=== PATIENT | female | born 1940 | race Caucasian/White ===

== ENCOUNTER 2019-07-30 08:22 | Outpatient (CLI) | payer MEDICARE, SELFPAY ==
[2019-07-30 08:37] LABS: Hematocrit 34.8 % (35.0-42.0); Hemoglobin 11.7 g/dL (11.7-13.8); Mean Corpuscular HGB Conc 33.6 g/dL (32.0-36.0); Mean Corpuscular Hemoglobin 30.3 pg (27.0-31.0); Mean Corpuscular Volume 90.2 fL (78.0-102.0); Mean Platelet Volume 9.4 fl (9.2-11.8); Platelet Count Result 159 K/mm3 (150-420); Red Blood Count 3.86 M/mm3 (4.20-5.40); Red Cell Distribution Width 13.2 % (11.6-14.4); White Blood Count 5.8 K/mm3 (4.8-10.8)
[2019-07-30 08:48] LABS: Hemoglobin A1C 6.3 % (<5.7)
[2019-07-30 10:02] LABS: Alanine Aminotransferase 25 U/L (14-59); Albumin Level 3.6 g/dL (3.4-5.0); Alkaline Phosphatase 59 U/L (46-116); Anion Gap 12.5 mmol/L (7-16); Aspartate Amino Transferase 22 U/L (15-37); Bilirubin,Total 0.9 mg/dL (0.00-1.00); Blood Urea Nitrogen 14 mg/dL (7-18); Calcium 8.9 mg/dL (8.5-10.1); Carbon Dioxide 27 mmol/L (21-32); Chloride 103 mmol/L (98-108); Cholesterol 156 mg/dL (0-200); Estimated Glomerular Filt Rate 53; Glucose 98 mg/dL (70-99); HDL Direct 49 mg/dL (40-60); LDL Cholesterol Calculated 75 mg/dL (<130); Osmolality Calculated 286 mOsm/kg (285-295); Potassium 4.5 mmol/L (3.5-5.1); Sodium 138 mmol/L (136-145); Thyroid Stimulating Hormone Reflex 2.74 u/IU/mL (0.36-3.74); Total Protein 6.6 g/dL (6.4-8.2); Triglycerides 161 mg/dL (0-150)
[2019-08-02 09:38] LABS: Vitamin D 25 Hydroxy 41 ng/mL (30-100)
== END 2019-07-30 08:23 | disposition home or self-care (01) ==
LOC: CHSLAB 08:25
PROVIDERS: PCP Family Medicine; Visit Provider Family Medicine
DX: E78.5 Hyperlipidemia, unspecified (principal); I10 Essential (primary) hypertension; E03.9 Hypothyroidism, unspecified; E11.9 Type 2 diabetes mellitus without complications; R53.83 Other fatigue; E55.9 Vitamin D deficiency, unspecified
CPT/HCPCS: 36415; 80053; 80061; 82306; 83036; 84443; 85027

== ENCOUNTER 2020-01-20 08:07 | Outpatient (CLI) | payer MEDICARE, SELFPAY ==
[2020-01-20 09:20] LABS: Hemoglobin A1C 5.9 % (<5.7)
[2020-01-20 09:27] LABS: Creatinine Urine 72.96 mg/dL (40-278); MALB Creatinine Ratio 17.9 mg/g (0-30); Microalbumin Urine Random 13.1 mg/L
[2020-01-20 09:49] LABS: Erythrocyte Sedimentation Rate 22 mm/hr (0-20)
[2020-01-20 09:58] LABS: Alanine Aminotransferase 21 U/L (14-59); Albumin Level 3.5 g/dL (3.4-5.0); Alkaline Phosphatase 69 U/L (46-116); Anion Gap 12 mmol/L (8-16); Aspartate Amino Transferase 13 U/L (15-37); Bilirubin,Total 0.9 mg/dL (0.00-1.00); Blood Urea Nitrogen 26 mg/dL (7-18); Calcium 9.3 mg/dL (8.5-10.1); Carbon Dioxide 25 mmol/L (21-32); Chloride 103 mmol/L (98-108); Cholesterol 185 mg/dL (0-200); Creatine Kinase 49 U/L (26-192); Estimated Glomerular Filt Rate 55; Glucose 94 mg/dL (70-99); HDL Direct 65 mg/dL (40-60); LDL Cholesterol Calculated 96 mg/dL (<130); Osmolality Calculated 294 mOsm/kg (285-295); Potassium 4.3 mmol/L (3.5-5.1); Sodium 140 mmol/L (136-145); Triglycerides 118 mg/dL (0-150); Vitamin B12 1029 pg/mL (193-986)
[2020-01-20 10:08] LABS: Thyroid Stimulating Hormone Reflex 2.19 u/IU/mL (0.36-3.74)
== END 2020-01-20 08:08 | disposition home or self-care (01) ==
LOC: CHSLAB 08:09
PROVIDERS: PCP Family Medicine; Visit Provider Family Medicine
DX: E78.2 Mixed hyperlipidemia (principal); E03.9 Hypothyroidism, unspecified; M79.10 Myalgia, unspecified site; E53.8 Deficiency of other specified B group vitamins; E11.9 Type 2 diabetes mellitus without complications
CPT/HCPCS: 36415; 80053; 80061; 82043; 82550; 82607; 83036; 84443; 85652

== ENCOUNTER 2020-04-21 11:54 | Outpatient (CLI) | payer MEDICARE, SELFPAY ==
--- NOTE | ~2020-04-21 | MM_ITS ---
EXAMINATION: MM screening [facility] w [facility] HISTORY: Screening mammogram TECHNIQUE: Craniocaudal and mediolateral oblique 3-D tomosynthesis images were obtained and synthetic 2-D images were generated. CAD analysis was submitted and interpreted. COMPARISON: 01/18/2018, 10/03/2013, 10/12/2011 bilateral digital screening mammogram examinations BREAST PARENCHYMAL COMPOSITION: There are scattered areas of fibroglandular density. FINDINGS: There are occasional benign calcifications. There is no evidence of suspicious mass, calcif ication, or architectural distortion to suggest malignancy in either breast. There has been no suspic ious interval change. IMPRESSION: 1. No mammographic evidence of malignancy. 2. Recommend routine screening mammography in one year. BI-RADS Category 2: Benign finding(s). Reviewed, dictated and finalized at location B. RESS SPECIALIST
== END 2020-04-21 11:55 | disposition home or self-care (01) ==
LOC: CHSIMG 11:55
PROVIDERS: PCP Family Medicine; Visit Provider Family Medicine
DX: Z12.31 Encounter for screening mammogram for malignant neoplasm of breast (principal)
CPT/HCPCS: 77063; 77067

== ENCOUNTER 2020-06-30 07:14 | Outpatient (CLI) | payer MEDICARE, SELFPAY ==
[2020-06-30 07:30] LABS: Hematocrit 37.8 % (35.0-42.0); Hemoglobin 12.3 g/dL (11.7-13.8); Mean Corpuscular HGB Conc 32.5 g/dL (32.0-36.0); Mean Corpuscular Hemoglobin 29.5 pg (27.0-31.0); Mean Corpuscular Volume 90.6 fL (78.0-102.0); Mean Platelet Volume 8.4 fl (9.2-11.8); Platelet Count Result 244 K/mm3 (150-420); Red Blood Count 4.17 M/mm3 (4.20-5.40); Red Cell Distribution Width 13.4 % (11.6-14.4); White Blood Count 8.6 K/mm3 (4.8-10.8)
[2020-06-30 07:58] LABS: Hemoglobin A1C 5.9 % (<5.7)
[2020-06-30 08:47] LABS: Alanine Aminotransferase 20 U/L (14-59); Albumin Level 3.5 g/dL (3.4-5.0); Alkaline Phosphatase 68 U/L (46-116); Anion Gap 11 mmol/L (8-16); Aspartate Amino Transferase 11 U/L (15-37); Blood Urea Nitrogen 30 mg/dL (7-18); Carbon Dioxide 25 mmol/L (21-32); Chloride 100 mmol/L (98-108); Cholesterol 179 mg/dL (0-200); Estimated Glomerular Filt Rate 45; Glucose 109 mg/dL (70-99); HDL Direct 56 mg/dL (40-60); LDL Cholesterol Calculated 91 mg/dL (<130); Osmolality Calculated 289 mOsm/kg (285-295); Potassium 4.3 mmol/L (3.5-5.1); Sodium 136 mmol/L (136-145); Triglycerides 160 mg/dL (0-150); Vitamin B12 901 pg/mL (193-986)
[2020-06-30 09:17] LABS: Thyroid Stimulating Hormone Reflex 3.57 u/IU/mL (0.36-3.74)
[2020-07-02 11:58] LABS: Vitamin D 25 Hydroxy 46 ng/mL (30-100)
== END 2020-06-30 07:15 | disposition home or self-care (01) ==
LOC: CHSLAB 07:17
PROVIDERS: PCP Family Medicine; Visit Provider Family Medicine
DX: E78.2 Mixed hyperlipidemia (principal); E55.9 Vitamin D deficiency, unspecified; E03.9 Hypothyroidism, unspecified; I10 Essential (primary) hypertension; E11.9 Type 2 diabetes mellitus without complications; R53.83 Other fatigue; E53.8 Deficiency of other specified B group vitamins
CPT/HCPCS: 36415; 80053; 80061; 82306; 82607; 83036; 84443; 85027

== ENCOUNTER 2020-07-16 10:36 | Outpatient (CLI) | payer MEDICARE, SELFPAY ==
--- NOTE | ~2020-07-16 | XR_ITS ---
EXAMINATION: XR hand LT 2V DATE: 07/16/2020 10:56 INDICATION: Pain and swelling at the left hand. TECHNIQUE: Posteroanterior and lateral views of the left hand were obtained. COMPARISON: 06/22/2013 FINDINGS: Diffuse osteopenia. No fracture no traumatic malalignment. Chondrocalcinosis in the region of the tri angular fibrocartilage complex. Interval progression of severe polyarticular osteoarthritis at the fi rst carpometacarpal, the lunotriquetral and all of the interphalangeal joints with the exception of t he first interphalangeal and fifth proximal interphalangeal joint where it is of mild severity. There are associated central erosions consistent with erosive osteoarthritis at the base of the second mid dle phalanx and at the third-fifth distal phalanges. There is secondary mild varus angulation at the second and third proximal interphalangeal joints. Moderate osteoarthritis at the second and third met acarpophalangeal joints and mild osteoarthritis at the wrist, midcarpal, triscaphe, second carpal met acarpal and remaining metacarpophalangeal joints. Subtle dystrophic calcification versus calcific gilson ris in the soft tissues surrounding the head of the fourth metacarpal and the heads of the second, th ird and fourth proximal phalanges. Prominent soft tissue swelling over the dorsum of the hand. IMPRESSION: 1. 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 Reviewed, dictated and finalized at location A. IMPRESSION: 1. Progression of severe polyarticular osteoarthritis and erosive osteoarthriti s most prominent at the radial aspect of the carpus and at the interphalangeal joints.
== END 2020-07-16 10:37 | disposition home or self-care (01) ==
PROVIDERS: PCP Family Medicine; Visit Provider Physician Assistant
DX: M11.242 Other chondrocalcinosis, left hand (principal); M19.042 Primary osteoarthritis, left hand; M18.12 Unilateral primary osteoarthritis of first carpometacarpal joint, left hand
CPT/HCPCS: 73120

== ENCOUNTER 2020-10-06 07:49 | Outpatient (CLI) | payer MEDICARE, SELFPAY ==
[2020-10-06 08:20] LABS: Hemoglobin A1C 5.9 % (<5.7)
[2020-10-06 09:02] LABS: Anion Gap 9 mmol/L (8-16); Blood Urea Nitrogen 20 mg/dL (7-18); Calcium 9.2 mg/dL (8.5-10.1); Carbon Dioxide 27 mmol/L (21-32); Chloride 102 mmol/L (98-108); Estimated Glomerular Filt Rate 55; Glucose 102 mg/dL (70-99); Osmolality Calculated 288 mOsm/kg (285-295); Potassium 4.6 mmol/L (3.5-5.1); Sodium 138 mmol/L (136-145)
== END 2020-10-06 07:50 | disposition home or self-care (01) ==
LOC: CHSLAB 07:51
PROVIDERS: PCP Family Medicine; Visit Provider Family Medicine
DX: E11.9 Type 2 diabetes mellitus without complications (principal); N18.30 Chronic kidney disease, stage 3 unspecified
CPT/HCPCS: 36415; 80048; 83036

== ENCOUNTER 2020-12-28 10:28 | Outpatient (CLI) | payer MEDICARE, SELFPAY ==
[2020-12-28 11:07] LABS: Anion Gap 11 mmol/L (8-16); Blood Urea Nitrogen 22 mg/dL (7-18); Calcium 9.1 mg/dL (8.5-10.1); Carbon Dioxide 27 mmol/L (21-32); Chloride 103 mmol/L (98-108); Estimated Glomerular Filt Rate 48; Glucose 130 mg/dL (70-99); Osmolality Calculated 297 mOsm/kg (285-295); Potassium 4.3 mmol/L (3.5-5.1); Sodium 141 mmol/L (136-145)
== END 2020-12-28 10:29 | disposition home or self-care (01) ==
LOC: CHSLAB 10:31
PROVIDERS: PCP Family Medicine; Visit Provider Orthopaedic Surgery Hand Surgery
DX: G56.01 Carpal tunnel syndrome, right upper limb (principal)
CPT/HCPCS: 36415; 80048

== ENCOUNTER 2021-01-19 13:16 | Outpatient (CLI) | payer MEDICARE, SELFPAY ==
--- NOTE | ~2021-01-19 | XR_ITS ---
EXAMINATION: XR knee LT 3V DATE: 01/19/2021 13:55 INDICATION: Left knee pain. TECHNIQUE: 3 views of left knee including standing views were obtained. COMPARISON: Left knee radiographs 09/05/2012 FINDINGS: There is varus angulation at the knee. No fracture. There is severe osteoarthritis of media l compartment, moderate osteoarthritis of patellofemoral compartment, and mild osteoarthritis of late ral compartment. There is a small knee joint effusion. IMPRESSION: 1. Severe left knee osteoarthritis. 2. Small left knee joint effusion. Reviewed, dictated and finalized at location A.
== END 2021-01-19 13:17 | disposition home or self-care (01) ==
PROVIDERS: PCP Family Medicine; Visit Provider Orthopaedic Surgery
DX: M17.12 Unilateral primary osteoarthritis, left knee (principal)
CPT/HCPCS: 73562

== ENCOUNTER 2021-06-23 07:41 | Outpatient (CLI) | payer MEDICARE, SELFPAY ==
[2021-06-23 07:58] LABS: Hematocrit 38.2 % (35.0-42.0); Hemoglobin 12.3 g/dL (11.7-13.8); Mean Corpuscular HGB Conc 32.2 g/dL (32.0-36.0); Mean Corpuscular Hemoglobin 30.4 pg (27.0-31.0); Mean Corpuscular Volume 94.6 fL (78.0-102.0); Mean Platelet Volume 9.4 fl (9.2-11.8); Platelet Count Result 180 K/mm3 (150-420); Red Blood Count 4.04 M/mm3 (4.20-5.40); Red Cell Distribution Width 12.8 % (11.6-14.4); White Blood Count 6.2 K/mm3 (4.8-10.8)
[2021-06-23 08:14] LABS: Hemoglobin A1C 6.2 % (<5.7)
[2021-06-23 09:07] LABS: Alanine Aminotransferase 25 U/L (14-59); Albumin Level 3.6 g/dL (3.4-5.0); Alkaline Phosphatase 68 U/L (46-116); Anion Gap 12 mmol/L (8-16); Aspartate Amino Transferase 20 U/L (15-37); Bilirubin,Total 0.6 mg/dL (0.00-1.00); Blood Urea Nitrogen 23 mg/dL (7-18); Calcium 9.2 mg/dL (8.5-10.1); Carbon Dioxide 24 mmol/L (21-32); Chloride 103 mmol/L (98-108); Cholesterol 171 mg/dL (0-200); Estimated Glomerular Filt Rate 54; Free T4 Free Thyroxine Reflex 1.04 ng/dL (0.76-1.46); Glucose 108 mg/dL (70-99); HDL Direct 51 mg/dL (40-60); LDL Cholesterol Calculated 80 mg/dL (<130); Osmolality Calculated 292 mOsm/kg (285-295); Potassium 4.5 mmol/L (3.5-5.1); Sodium 139 mmol/L (136-145); Thyroid Stimulating Hormone Reflex 5.07 u/IU/mL (0.36-3.74); Total Protein 6.7 g/dL (6.4-8.2); Triglycerides 199 mg/dL (0-150)
== END 2021-06-23 07:42 | disposition home or self-care (01) ==
LOC: CHSLAB 07:44
PROVIDERS: PCP Family Medicine; Visit Provider Family Medicine
DX: R53.83 Other fatigue (principal); E78.2 Mixed hyperlipidemia; E11.9 Type 2 diabetes mellitus without complications; I12.9 Hypertensive chronic kidney disease with stage 1 through stage 4 chronic kidney disease, or unspecified chronic kidney disease; E03.9 Hypothyroidism, unspecified
CPT/HCPCS: 36415; 80053; 80061; 83036; 84439; 84443; 85027

== ENCOUNTER 2021-08-18 10:03 | Outpatient (RCR) | payer MEDICARE, SELFPAY ==
--- NOTE | 2021-08-18 10:54 | PTOPEVAL ---
Thank you for referring Shandra Myers to [facility].? The patient is scheduled to be seen for therapy? ____x/week for ___ weeks. Please review, sign, date and return this plan of care KESHIA. I agree with and certify that the following plan of care is medically necessary. Referring Physician Date Admitting Provider: Attending Provider: Gisselle Noel MD Referring Provider: *PT Outpatient Evaluation Start: 08/18/21 10:08 Freq: Status: Active Protocol: Document 08/18/21 10:10 [facility] (Rec: 08/18/21 10:54 [facility] [id number]) Therapy Assessment Status Assessment Status Assessment Status Evaluation Outpatient Past Medical History Neurological History Hx Neurological Disorders No Significant History Cardiovascular History Hx Atrial Fibrillation Yes Hx Hypercholesterolemia Yes Hx Hypertension Yes Respiratory History Hx Asthma Yes Hx Pneumonia Yes: severe in Feb 2019 Hx Sleep Apnea Yes: CPAP have had for one month Gastrointestinal History Hx Gastrointestinal Bleed Yes Genitourinary History Hx Genitourinary Disorders No Significant History Musculoskeletal History Hx Arthritis Yes: hands, knees Hx Back Pain Yes Hx Joint Replacement Yes: R TKR Hx Spinal Surgery Yes: low back surgery Hx Other Musculoskeletal Disorders Yes: see ortho dr for pain injections PRN-sh,knee,hip Hematological History Hx Hematological Disorders No Significant History Endocrine History Hx Hypothyroidism Yes HEENT History Hx Sinus Problems Yes: allergies, inner ear pressure Hx Other HEENT Disorders Yes: wear glasses Other History Hx Other Medical Conditions Yes: on antibiotic for R LE infection & cream Evaluation Information Problem Diagnosis cervical disc disease Onset 08/02/21 Additional Evaluation Detail NDI = 12% functionally declined Subjective Information patient reports she has been Query Text:As Reported By Patient/ having stiffness and pain in Family the neck a few weeks ago. she reports she woke up one day having a stiff neck on the L, and then the R came on a few days later and hung around longer. she reports she is feeling better this date after having been on mm relaxors and a heating pad. she reports
== END 2021-09-09 13:57 | disposition home or self-care (01) ==
LOC: CHSPT 10:03
PROVIDERS: PCP Family Medicine; Visit Provider Physician Assistant
DX: M50.90 Cervical disc disorder, unspecified, unspecified cervical region (principal); R29.898 Other symptoms and signs involving the musculoskeletal system
CPT/HCPCS: 97014; 97110; 97140; 97161; G0283

== ENCOUNTER 2021-10-27 08:00 | Outpatient (CLI) | payer MEDICARE, SELFPAY ==
[2021-10-27 08:29] LABS: Hematocrit 36.5 % (35.0-42.0); Hemoglobin 11.6 g/dL (11.7-13.8); Mean Corpuscular HGB Conc 31.8 g/dL (32.0-36.0); Mean Corpuscular Hemoglobin 28.8 pg (27.0-31.0); Mean Corpuscular Volume 90.6 fL (78.0-102.0); Mean Platelet Volume 8.3 fl (9.2-11.8); Platelet Count Result 234 K/mm3 (150-420); Red Blood Count 4.03 M/mm3 (4.20-5.40)
[2021-10-27 08:42] LABS: Hemoglobin A1C 6.2 % (<5.7)
[2021-10-27 09:11] LABS: Alanine Aminotransferase 25 U/L (14-59); Albumin Level 3.4 g/dL (3.4-5.0); Alkaline Phosphatase 78 U/L (46-116); Anion Gap 7 mmol/L (8-16); Aspartate Amino Transferase 13 U/L (15-37); Bilirubin,Total 0.8 mg/dL (0.00-1.00); Blood Urea Nitrogen 19 mg/dL (7-18); Carbon Dioxide 27 mmol/L (21-32); Chloride 102 mmol/L (98-108); Estimated Glomerular Filt Rate 51; Glucose 106 mg/dL (70-99); Osmolality Calculated 284 mOsm/kg (285-295); Potassium 4.3 mmol/L (3.5-5.1); Sodium 136 mmol/L (136-145); Total Protein 7.5 g/dL (6.4-8.2)
[2021-10-30 18:59] LABS: Vitamin D 25 Hydroxy 54 ng/mL (30-100)
== END 2021-10-27 08:01 | disposition home or self-care (01) ==
LOC: CHSLAB 08:02
PROVIDERS: PCP Family Medicine; Visit Provider Family Medicine
DX: E03.9 Hypothyroidism, unspecified (principal); I12.9 Hypertensive chronic kidney disease with stage 1 through stage 4 chronic kidney disease, or unspecified chronic kidney disease; N18.30 Chronic kidney disease, stage 3 unspecified; Z00.00 Encounter for general adult medical examination without abnormal findings; E11.9 Type 2 diabetes mellitus without complications; E55.9 Vitamin D deficiency, unspecified; R53.83 Other fatigue
CPT/HCPCS: 36415; 80053; 82306; 83036; 84443; 85027

== ENCOUNTER 2021-11-24 09:25 | Outpatient (CLI) | payer MEDICARE, SELFPAY ==
--- NOTE | ~2021-11-24 | MM_ITS ---
EXAMINATION: MM screening [facility] BI w [place] HISTORY: Screening mammogram TECHNIQUE: Craniocaudal and mediolateral oblique 3-D tomosynthesis images were obtained and synthetic 2-D images were generated. CAD analysis was submitted and interpreted. COMPARISON: 04/21/2020, 01/18/2018, 09/23/2013 BREAST PARENCHYMAL COMPOSITION: The breasts are almost entirely fatty. FINDINGS: There is no suspicious mass, calcification, or architectural distortion to suggest malignan cy in either breast. There has been no suspicious interval change. IMPRESSION: 1. No mammographic evidence of malignancy. 2. Recommend routine screening mammography while the patient remains in good health. BI-RADS Category 1: Negative Reviewed, dictated and finalized at location A. IMPRESSION: 1. No mammographic evidence of malignancy. 2. Recommend routine screening mammography while the patient remains in good he alth. BI-RADS Category 1: Negative
== END 2021-11-24 09:26 | disposition home or self-care (01) ==
LOC: CHSIMG 09:26
PROVIDERS: PCP Family Medicine; Visit Provider Family Medicine
DX: Z12.31 Encounter for screening mammogram for malignant neoplasm of breast (principal)
CPT/HCPCS: 77063; 77067

== ENCOUNTER 2021-11-26 10:41 | Outpatient (CLI) | payer MEDICARE, SELFPAY ==
--- NOTE | ~2021-11-26 | DEXA_ITS ---
Bone Density Report Name: TIEN BARRON Age: 81 Sex: Female Ethnicity: White Date of : 1940 Indication: hyperparathyroidism; height loss; prior fracture; asthma or emphysema; Referring Provider: Gisselle Noel Study: Bone densitometry was performed. Exam Date: November 26, 2021 Accession number: [id number] Bone Density: Region BMD T-score Z-score Classification Femoral Neck (Left) 0.662 -1.7 0.7 Osteopenia Total Hip (Left) 0.932 -0.1 2.1 Normal Femoral Neck (Right) 0.667 -1.6 0.7 Osteopenia Total Hip (Right) 0.852 -0.7 1.4 Normal Femoral Neck Mean 0.664 -1.7 0.7 Osteopenia Total Hip Mean 0.892 -0.4 1.7 Normal World Health Organization criteria for BMD impression classify patients as: Normal (T-score at or above -1.0), Osteopenia (T-score between -1.0 and -2.5), or Osteoporosis (T-score at or below -2.5). 10-year Fracture Risk: FRAX not reported because: Prior hip or vertebral fracture Clinical Information Provided by Patient: Have had a previous hip or vertebral fracture Has had a low trauma fracture Has used the following medications: Vitamin D, Calcium Has the following medical conditions: Asthma or Emphysema, Hyperparathyroidism Patient maximum height was 62 Menopause Age: 35 No regular weight bearing exercise Onset of menses at age 13 Number of children 2 Impression: The patient has low bone mass, based on the Left Femoral Neck T-score. The patient has risk factors, including: previous fracture. Discussion: INCREASED RISK OF FRACTURE DUE TO HISTORY OF FRACTURE. The patient's previous fracture puts the patient at high risk of a future fracture. In untreated patients, the risk of osteoporotic fracture increases approximately two-fold for each 1.0 SD decrease in T-score. Low bone density is not the only risk factor for fracture; also consider factors such as patient's age, frailty or poor health, risk of falling, risk of injury, previous osteoporotic fracture, family history of osteoporosis, cigarette smoking, low body weight, etc. Not everyone with a low trauma fracture has osteoporosis; osteomalacia and other metabolic bone disorders should also be considered. Patients who have osteoporosis should be evaluated for specific diseases and conditions (secondary causes) that may cause or contribute to bone loss and fracture risk. National Osteoporosis Foundation (NOF) recommends pharmacologic intervention for patients with a prior hip or vertebral fracture regardless of BMD T-score. The patient should follow a healthful lifestyle (good nutrition with adequate calcium and vitamin D, and appropriate weight-bearing exercise). Follow-Up: Consider a repeat BMD and Vertebral Fracture Assessment (VFA) exam in 2 years or sooner if medically necessary, to reassess this patient's status. R
== END 2021-11-26 10:42 | disposition home or self-care (01) ==
LOC: CHSIMG 10:42
PROVIDERS: PCP Family Medicine; Visit Provider Family Medicine
DX: Z78.0 Asymptomatic menopausal state (principal)
CPT/HCPCS: 77080

== ENCOUNTER 2022-01-23 10:27 | Outpatient (CLI) | payer MEDICARE, SELFPAY ==
--- NOTE | ~2022-01-23 | MR_ITS ---
EXAMINATION: MR lumbar spine wo con DATE: 01/23/2022 11:26 INDICATION: Low back pain. TECHNIQUE: Magnetic resonance imaging (MRI) of the lumbar spine was performed without intravenous con trast. Sequences included sagittal T2-weighted FSE, sagittal T2-weighted FS FSE, sagittal T1-weighted FSE, and axial T2-weighted FSE. COMPARISON: Lumbar spine MRI 02/20/2015 FINDINGS: There is 9 degrees levocurvature of lumbar spine. There is 3 mm retrolisthesis of L1 on L2 and L2 on L3, 3 mm anterolisthesis of L3 on L4, and 6 mm anterolisthesis of L4 on L5. There is mild c hronic height loss of T12 vertebral body with changes of vertebroplasty. There is a chronic left L5 p ars defect. There is severely decreased disc height from L1-L2 through L3-L4 with interbody fusion at L1-L2 and L3-L4. There is moderately decreased disc height at L4-L5 and L5-S1. The distal spinal cor d signal intensity is normal. The conus medullaris is at L1. The following disc levels are specifical ly discussed: L1-L2: There is moderate bilateral facet joint osteoarthritis. There is mild bilateral neural foramin al stenosis. There is mild central canal stenosis. L2-L3: The disc is bulging and has an annular fissure. There is severe bilateral facet joint osteoart hritis. There is moderate right and mild left neural foraminal stenosis. There is mild central canal stenosis. L3-L4: There is severe bilateral facet joint hypertrophy. There is moderate bilateral neural foramina l stenosis. There is mild central canal stenosis with posterior decompression. L4-L5: The disc is bulging. There is severe bilateral facet joint osteoarthritis. There is moderate r ight and mild left neural foraminal stenosis. There is mild central canal stenosis with posterior dec ompression. There is moderate stenosis of right lateral recess. L5-S1: The disc is bulging with superimposed left foraminal extrusion. There is severe bilateral face t joint osteoarthritis. There is mild right and moderate left neural foraminal stenosis. There is mil d central canal stenosis. IMPRESSION: 1. Severe lumbar spondylosis. 2. Interbody fusion at L1-L2 and L3-L4. 3. Chronic left L5 pars defect. Reviewed, dictated and finalized at location A.
== END 2022-01-23 10:28 | disposition home or self-care (01) ==
PROVIDERS: PCP Family Medicine; Visit Provider Orthopaedic Surgery
DX: M54.50 Low back pain, unspecified (principal); M47.896 Other spondylosis, lumbar region; Z98.1 Arthrodesis status
CPT/HCPCS: 72148

== ENCOUNTER 2022-03-15 08:57 | Outpatient (CLI) | payer MEDICARE, SELFPAY ==
[2022-03-15 09:14] LABS: Hematocrit 38.2 % (35.0-42.0); Hemoglobin 12.7 g/dL (11.7-13.8); Mean Corpuscular HGB Conc 33.2 g/dL (32.0-36.0); Mean Corpuscular Hemoglobin 30.8 pg (27.0-31.0); Mean Corpuscular Volume 92.7 fL (78.0-102.0); Mean Platelet Volume 8.9 fl (9.2-11.8); Platelet Count Result 221 K/mm3 (150-420); Red Blood Count 4.12 M/mm3 (4.20-5.40); Red Cell Distribution Width 12.8 % (11.6-14.4); White Blood Count 5.6 K/mm3 (4.8-10.8)
[2022-03-15 09:23] LABS: Hemoglobin A1C 5.6 % (<5.7)
[2022-03-15 10:44] LABS: Alanine Aminotransferase 23 U/L (14-59); Albumin Level 3.7 g/dL (3.4-5.0); Alkaline Phosphatase 64 U/L (46-116); Anion Gap 10 mmol/L (8-16); Aspartate Amino Transferase 19 U/L (15-37); Bilirubin,Total 0.9 mg/dL (0.00-1.00); Blood Urea Nitrogen 25 mg/dL (7-18); Calcium 9.5 mg/dL (8.5-10.1); Carbon Dioxide 28 mmol/L (21-32); Chloride 104 mmol/L (98-108); Cholesterol 166 mg/dL (0-200); Estimated Glomerular Filt Rate 39; Free T4 Free Thyroxine 1.15 ng/dL (0.76-1.46); Glucose 102 mg/dL (70-99); HDL Direct 48 mg/dL (40-60); LDL Cholesterol Calculated 87 mg/dL (<130); Osmolality Calculated 298 mOsm/kg (285-295); Potassium 4.7 mmol/L (3.5-5.1); Sodium 142 mmol/L (136-145); Thyroid Stimulating Hormone 2.49 uIU/mL (0.36-3.74); Total Protein 7.2 g/dL (6.4-8.2); Triglycerides 154 mg/dL (0-150)
== END 2022-03-15 08:58 | disposition home or self-care (01) ==
LOC: CHSLAB 08:59
PROVIDERS: PCP Family Medicine; Visit Provider Physician Assistant
DX: D64.9 Anemia, unspecified (principal); R53.83 Other fatigue; Z13.1 Encounter for screening for diabetes mellitus; E11.9 Type 2 diabetes mellitus without complications; Z13.220 Encounter for screening for lipoid disorders
CPT/HCPCS: 36415; 80053; 80061; 83036; 84439; 84443; 85027

== ENCOUNTER 2022-04-13 09:58 | Outpatient (RCR) | payer MEDICARE, SELFPAY ==
--- NOTE | 2022-04-21 09:50 | BUPTOPEVAL1 ---
Assessment and note entered by JT File, PT Evaluation Information Assessment Status Evaluation Diagnosis lumbar radiculopathy Onset 04/05/22 Subjective Information patient reports she is coming to therapy for pain in the lower back and down the L LE. she reports she has had pain for a while. she reports she has had xray and mri of the lower back showing arthritis. she reports she has increased pain with standing, walking, and lifting. Assessment PT Clinical Summary mrs. best is an 82 yo woman who presents to skilled PT services for evaluation and treatment of lower back and L LE pain. she presents with signs and symptoms of DDD and spondylosis of the lumbar spine with radicular L LE symptoms. she would benefit from skilled PT to improve her objective/functional deficits and progress towards a return to her prior level functional activity performance and quality of life. Plan of Care Interventions Electrical Stimulation,Gait Training,Hot Pack/Cold Pack,Manual Therapy,Mechanical Traction,Neuro Re- education,Patient/Caregiver Educati,Therapeutic Activities,Therapeutic Exercise PT Services Indicated Yes Treatment Frequency and 3x weekly for 12 visits Duration These treatments will address the objective and functional deficits as defined above. The patient will be advanced safely and appropriately in order for the patient to progress towards his/her prior level of function. Additional exercises will be introduced and as well as a comprehensive home exercise program upon discharge, if needed, ?to ensure carryover of functional gains achieved in the clinic. This treatment plan has been reviewed and agreement upon by the patient.
--- NOTE | 2022-05-03 12:01 | PTOPPROG ---
Assessment and note entered by Alcira Campos, PT Evaluation Information Assessment Status Progress Diagnosis Lumbar Radiculopathy Onset 04/05/22 Subjective Information Shandra Myers reports that her back and leg pain has improved overall. 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 She has not had back pain higher than 3/10 over the last week. She is able to wash dishes and sweep her floors now without pain. She reports performing home exercises daily and she is limiting her lifting to 5 lbs or less which she has done for several years due to chronic low back pain. She does have difficulty with walking but that is due to a bad knee. She will see her pain management doctor tomorrow for an injection in her back. She feels she is doing well and can continue her exercises independently. Assessment PT Clinical Summary Shandra Myers has completed 9 skilled PT visits for lumbar radiculopathy. She reports decreased low back pain and improved ability to stand and wash dishes and sweep her floors since initiating PT. She does still have deficits in her walking tolerance due to a bad knee. She objectively demonstrates improved lumbar extension AROM, improved core and hip strength, improved hamstring flexibility, and improved balance. She continues to demonstrate decreased lateral flexion AROM, decreased core strength, and impaired gait. She plans to follow up with her physician tomorrow at her injection appointment and feels comfortable continuing PT independently with exercises if her physician agrees. Plan of Care Interventions Electrical Stimulation,Hot Pack/Cold Pack,Manual Therapy,Patient/Caregiver Educati,Therapeutic Exercise PT Services Indicated Yes Treatment Frequency and Patient to finish 3 planned visits if needed, she Duration will be discharged if her physician agrees. These treatments will address the objective and functional deficits as defined above. The patient will be advanced safely and appropriately in order for the patient to progress towards his/her prior level of function. Additional exercises will be introduced and as well as a comprehensive home exercise program upon discharge, if needed, ?to ensure carryover of functional gains achieved in the clinic. This treatment plan has been reviewed and agreement upon by the patient.
--- NOTE | 2022-05-10 14:16 | PTOPDC ---
Assessment and note entered by JT File, PT Evaluation Information Assessment Status Evaluation Diagnosis Lumbar Radiculopathy Onset 04/05/22 Subjective Information patient reports he feels pretty good this date. she reports pain still at times, but reports she manages with exercises and rest. she reports pain is gone with modalities. she reports her L knee is most bothersome and is the culprit for most of her symptoms on the Oswestry. Reported Pain Level Pain Score 1: Self Report Assessment PT Clinical Summary mrs. best presents to skilled PT services for her 12th skilled therapy visit. as of this date, she displays increased rom, strength, flexibility, and decreased pain. she has met more than 65% of goals for skilled PT, and made progress towards all others. she would do well to DC skilled PT and continue with HEP independent at home. Plan of Care Treatment Frequency and DC to independent HEP Duration
== END 2022-05-10 14:24 | disposition home or self-care (01) ==
LOC: CHSPT 09:58
PROVIDERS: Visit Provider Nurse Practitioner Family
DX: M54.16 Radiculopathy, lumbar region (principal)
CPT/HCPCS: 97014; 97110; 97140; 97161; G0283

== ENCOUNTER 2022-08-08 08:08 | Outpatient (CLI) | payer MEDICARE, SELFPAY ==
[2022-08-08 08:33] LABS: Hematocrit 38.8 % (35.0-42.0); Hemoglobin 12.9 g/dL (11.7-13.8); Mean Corpuscular HGB Conc 33.2 g/dL (32.0-36.0); Mean Corpuscular Hemoglobin 30.9 pg (27.0-31.0); Mean Platelet Volume 8.9 fl (9.2-11.8); Platelet Count Result 254 K/mm3 (150-420); Red Blood Count 4.17 M/mm3 (4.20-5.40); Red Cell Distribution Width 13.2 % (11.6-14.4); White Blood Count 6.2 K/mm3 (4.8-10.8)
[2022-08-08 09:02] LABS: Hemoglobin A1C 5.6 % (<5.7)
[2022-08-08 09:45] LABS: Alanine Aminotransferase 22 U/L (14-59); Albumin Level 3.6 g/dL (3.4-5.0); Alkaline Phosphatase 79 U/L (46-116); Anion Gap 9 mmol/L (8-16); Aspartate Amino Transferase 17 U/L (15-37); Bilirubin,Total 0.8 mg/dL (0.00-1.00); Blood Urea Nitrogen 23 mg/dL (7-18); Calcium 9.2 mg/dL (8.5-10.1); Carbon Dioxide 29 mmol/L (21-32); Chloride 102 mmol/L (98-108); Cholesterol 187 mg/dL (0-200); Estimated Glomerular Filt Rate 55; Glucose 110 mg/dL (70-99); HDL Direct 53 mg/dL (40-60); LDL Cholesterol Calculated 100 mg/dL (<130); Osmolality Calculated 294 mOsm/kg (285-295); Potassium 4.5 mmol/L (3.5-5.1); Sodium 140 mmol/L (136-145); Total Protein 7.3 g/dL (6.4-8.2); Triglycerides 169 mg/dL (0-150)
[2022-08-08 09:52] LABS: Thyroid Stimulating Hormone Reflex 3.09 u/IU/mL (0.36-3.74)
== END 2022-08-08 08:09 | disposition home or self-care (01) ==
LOC: CHSLAB 08:10
PROVIDERS: PCP Family Medicine; Visit Provider Family Medicine
DX: E78.2 Mixed hyperlipidemia (principal); R53.83 Other fatigue; E03.9 Hypothyroidism, unspecified; I10 Essential (primary) hypertension; E11.9 Type 2 diabetes mellitus without complications; N18.30 Chronic kidney disease, stage 3 unspecified
CPT/HCPCS: 36415; 80053; 80061; 83036; 84443; 85027

== ENCOUNTER 2022-08-18 15:09 | Outpatient (CLI) | payer MEDICARE, SELFPAY ==
--- NOTE | ~2022-08-18 | XR_ITS ---
Left wrist Technique: PA, oblique, lateral, and ulnar deviation views were obtained. Clinical History: Pain COMPARISON: 07/16/2020 Findings: No acute fracture or dislocation is seen. Stable moderate degenerative change at the first carpometacarpal joint. Stable extensive chondrocalcinosis and/or debris, particularly about the triqu etral pisiform recess/articulation with additional chondrocalcinosis of the TFCC. Soft tissues are un remarkable. Impression: No fracture or dislocation. Stable degenerative changes and intra-articular debris and/or chondrocalcinosis in the wrist, as deta iled above, particularly about the triquetral pisiform region and at the first CMC joint. Reviewed, dictated and finalized at location M. Impression: No fracture or dislocation. Stable degenerative changes and intra-articular debris and/or chondrocalcinosis in the wrist, as detailed above, particularly about the triquetral pisiform re gion and at the first CMC joint.
== END 2022-08-18 15:10 | disposition home or self-care (01) ==
LOC: CHSIMG 15:10
PROVIDERS: PCP Family Medicine; Visit Provider Family Medicine
DX: M25.532 Pain in left wrist (principal)
CPT/HCPCS: 73110

== ENCOUNTER 2022-09-19 10:13 | Outpatient (RCR) | payer MEDICARE, SELFPAY ==
--- NOTE | 2022-09-19 11:24 | PTOPEVAL1 ---
Assessment and note entered by JT File, PT Evaluation Information Assessment Status Evaluation Diagnosis L TKA Onset 08/30/22 Subjective Information patient reports she is coming to therapy s/p L TKA to improve her mobility, strength, and walking. she reports she had severe arthritis in the L knee prior to the surgery. she reports prior to surgery she was struggling to walk and using a cane to get around. she reports she was walking short distances due to the pain. she reports she would like to walk without any AD and have full mobility in the L knee. she reports increased pain in the L knee with trying to extend the L knee and also with exercise/therapy. she reports she had home health therapy. she reports she has been checked for a blood clot due go her swelling, but has no clots. Reported Pain Level Pain Score 8: Self Report Assessment PT Clinical Summary mrs. best is an 82 yo woman who presents to skilled PT services for evaluation and treatment of the L knee s/p L TKA. she presents with decreased L knee rom, decreased L knee strength, pain, and abnormal gait mechanics. she is complicated by continued swelling, and having allergic reactions to medications after surgery. she would benefit from continued skilled PT to address her objective/functional deficits and return to her prior level functional activity performance/quality of life. Plan of Care Interventions Electrical Stimulation,Gait Training,Hot Pack/Cold Pack,Intermittent Compression,Manual Therapy, Neuro Re-education,Patient/Caregiver Educati, Therapeutic Activities,Therapeutic Exercise PT Services Indicated Yes Treatment Frequency and 2x weekly for 10 visits Duration These treatments will address the objective and functional deficits as defined above. The patient will be advanced safely and appropriately in order for the patient to progress towards his/her prior level of function. Additional exercises will be introduced and as well as a comprehensive home exercise program upon discharge, if needed, ?to ensure carryover of functional gains achieved in the clinic. This treatment plan has been reviewed and agreement upon by the patient.
--- NOTE | 2022-09-19 11:24 | OPREHPOC ---
Outpatient Therapy Plan of Care This is a Multidisciplinary Plan of Care that may contain components documented by all disciplines (PT, OT, and ST.) PT Problem 1 PT Problem #1 Knowledge Deficit PT Goal 1 Goal 1. independent and compliant with HEP to improve rom and tolerance for continued skilled PT Target Visit 6 PT Problem 2 PT Problem #2 Pain PT Goal 1 Goal 1. decrease pain at worst to 2/10 or less in the L knee to improve quality of lifeq Target Visit 12 PT Problem 3 PT Problem #3 Impaired Range of Motion PT Goal 1 Goal 1. 0-120 degrees or better arom L knee mobility Target Visit 12 PT Problem 4 PT Problem #4 Impaired Strength PT Goal 1 Goal 1. 4/5 or better L hip flex 2. 5/5 L knee strength Target Visit 12 PT Problem 5 PT Problem #5 Impaired Functional Mobil PT Goal 1 Goal 1. reduce L knee jt line swelling to 2cm or less girth increase compared to the R knee. 2. patient to ambulate with cane and no antalgia favoring the L LE 3. patient to ambulate up and down steps with reciprocal mechanics with 1 hand rail hold 4. LEFS to display less than 30% functional deficits Target Visit 12
--- NOTE | 2022-10-20 11:37 | PTOPREEVAL ---
Assessment and note entered by JT File, PT Evaluation Information Assessment Status Re-evaluation Diagnosis L TKA Onset 08/30/22 Subjective Information patient reports she continues to have tightness in the L knee. however, she reports the R knee has also not achieved full return of mobility since her R TKA. she reports she is trying to walk without an AD at all times, but her first few steps are a bit painful still. Reported Pain Level Pain Score 1: Self Report Assessment PT Clinical Summary mrs. best presents to skilled PT for her 10th skilled therapy visit. she presents today with continued deficits in full L knee mobility, strength, and normal gait mechanics. she continues to be complicated by pain and swelling in the L knee. however, she has made progress towards some goals achieving partial progress towards rom, pain , and funcitonal mobility. she has met goals for HEP performance. she would benefit from continued skilled PT to achieve her remaining goals and return to prior level functional activities without AD or limitations. Plan of Care Interventions Gait Training,Hot Pack/Cold Pack,Intermittent Compression,Manual Therapy,Neuro Re-education, Patient/Caregiver Educati,Therapeutic Activities, Therapeutic Exercise PT Services Indicated Yes Treatment Frequency and continue skilled PT 2x weekly for 8 more visits Duration These treatments will address the objective and functional deficits as defined above. The patient will be advanced safely and appropriately in order for the patient to progress towards his/her prior level of function. Additional exercises will be introduced and as well as a comprehensive home exercise program upon discharge, if needed, ?to ensure carryover of functional gains achieved in the clinic. This treatment plan has been reviewed and agreement upon by the patient.
--- NOTE | 2022-11-17 14:52 | OPREHPOC ---
Outpatient Therapy Plan of Care This is a Multidisciplinary Plan of Care that may contain components documented by all disciplines (PT, OT, and ST.) PT Problem 1 PT Problem #1 Knowledge Deficit PT Goal 1 Goal 1. independent and compliant with HEP to improve rom and tolerance for continued skilled PT Target Visit 6 Progress Met PT Problem 2 PT Problem #2 Pain PT Goal 1 Goal 1. decrease pain at worst to 2/10 or less in the L knee to improve quality of lifeq Target Visit 12 Progress Partially Met PT Problem 3 PT Problem #3 Impaired Range of Motion PT Goal 1 Goal 1. 0-120 degrees or better arom L knee mobility Target Visit 12 Progress Partially Met PT Problem 4 PT Problem #4 Impaired Strength PT Goal 1 Goal 1. 4/5 or better L hip flex 2. 5/5 L knee strength Target Visit 12 Progress Partially Met PT Problem 5 PT Problem #5 Impaired Functional Mobil PT Goal 1 Goal 1. reduce L knee jt line swelling to 2cm or less girth increase compared to the R knee. 2. patient to ambulate with cane and no antalgia favoring the L LE 3. patient to ambulate up and down steps with reciprocal mechanics with 1 hand rail hold 4. LEFS to display less than 30% functional deficits Target Visit 12 Progress Partially Met Comment met 1, 2, and 3
--- NOTE | 2022-11-17 14:53 | PTOPDC ---
Assessment and note entered by JT File, PT Evaluation Information Assessment Status Re-evaluation Diagnosis L TKA Onset 08/30/22 Subjective Information Patient reports her function has improved greatly since starting physical therapy, noting she is able to walk 2 blocks without any pain. She notes that she typically has slight pain/stiffness with AROM knee flexion to end range and in the morning upon waking up but that this decreases with movement. She notes an inability to stand for greater than 30 minutes due to her back pain that has been present for years. She notes she performs her current HEP 2x every day. Reported Pain Level Pain Score 1: Self Report Assessment PT Clinical Summary Mrs. best has attended 18 visits of skilled PT to address s/p R knee replacement, making good progress towards goals. She demonstrated improved L knee AROM/PROM, strenght, flexibility, and gait mechanics. She has 37.5% functional decline assessed by the LEFS, and she reports that she is currently similiar to her prior level of activity before needing a knee replacement. She notes that she has improved ability to walk, climb stairs, get dressed, and perform household cleaning. At this time pt is to be discharged with independent HEP for home. Plan of Care PT Services Indicated Yes
== END 2022-11-17 14:23 | disposition home or self-care (01) ==
LOC: CHSPT 10:13
PROVIDERS: Visit Provider Orthopaedic Surgery
DX: Z47.1 Aftercare following joint replacement surgery (principal); Z96.652 Presence of left artificial knee joint
CPT/HCPCS: 97014; 97016; 97110; 97150; 97161; 97530; G0283

== ENCOUNTER 2023-02-01 07:49 | Outpatient (CLI) | payer MEDICARE, SELFPAY ==
[2023-02-01 08:05] LABS: Basophils Absolute Auto 0.03 K/mm3 (0.00-0.10); Basophils Percent Auto 0.4 % (0.0-1.0); Eosinophils Percent Auto 1.5 % (1.0-6.0); Hematocrit 36.3 % (35.0-42.0); Hemoglobin 11.7 g/dL (11.7-13.8); Immature Granulocyte Absolute 0.02 K/mm3 (0.00-0.00); Immature Granulocyte Percent A 0.3 % (0.0-0.0); Lymphocytes Absolute Auto 1.21 K/mm3 (1.10-4.50); Lymphocytes Percent Auto 17.9 % (18.0-42.0); Mean Corpuscular HGB Conc 32.2 g/dL (32.0-36.0); Mean Corpuscular Hemoglobin 28.5 pg (27.0-31.0); Mean Corpuscular Volume 88.5 fL (78.0-102.0); Mean Platelet Volume 8.6 fl (9.2-11.8); Monocytes Absolute Auto 0.58 K/mm3 (0.10-0.90); Monocytes Percent Auto 8.6 % (2.0-11.0); Neutrophils Absolute Auto 4.8 K/mm3 (1.7-7.2); Neutrophils Percent Auto 71.3 % (50.0-70.0); Platelet Count Result 197 K/mm3 (150-420); Red Cell Distribution Width 15.6 % (11.6-14.4); White Blood Count 6.8 K/mm3 (4.8-10.8)
[2023-02-01 08:19] LABS: Hemoglobin A1C 6.5 % (<5.7)
[2023-02-01 09:06] LABS: Alanine Aminotransferase 23 U/L (14-59); Albumin Level 3.7 g/dL (3.4-5.0); Alkaline Phosphatase 72 U/L (46-116); Anion Gap 12 mmol/L (8-16); Aspartate Amino Transferase 16 U/L (15-37); Blood Urea Nitrogen 26 mg/dL (7-18); Calcium 9.5 mg/dL (8.5-10.1); Carbon Dioxide 27 mmol/L (21-32); Chloride 102 mmol/L (98-108); Cholesterol 158 mg/dL (0-200); Estimated Glomerular Filt Rate 50; Ferritin 94 ng/mL (8-252); Glucose 110 mg/dL (70-99); HDL Direct 48 mg/dL (40-60); Iron 56 ug/dL (50-170); LDL Cholesterol Calculated 77 mg/dL (<130); Osmolality Calculated 297 mOsm/kg (285-295); Percent Iron Saturation 15 % (12-57); Potassium 4.6 mmol/L (3.5-5.1); Sodium 141 mmol/L (136-145); Total Protein 6.9 g/dL (6.4-8.2); Triglycerides 165 mg/dL (0-150); Vitamin B12 879 pg/mL (193-986)
[2023-02-01 09:08] LABS: Folic Acid > 20.0 ng/mL (8.6->20)
[2023-02-01 09:09] LABS: Free T4 Free Thyroxine Reflex 1.09 ng/dL (0.76-1.46); Thyroid Stimulating Hormone Reflex 5.19 u/IU/mL (0.36-3.74)
== END 2023-02-01 07:50 | disposition home or self-care (01) ==
LOC: CHSLAB 07:50
PROVIDERS: PCP Family Medicine; Visit Provider Family Medicine
DX: R53.83 Other fatigue (principal); D64.9 Anemia, unspecified; E11.9 Type 2 diabetes mellitus without complications; E78.2 Mixed hyperlipidemia
CPT/HCPCS: 36415; 80053; 80061; 82607; 82728; 82746; 83036; 83540; 83550; 84439; 84443; 85025

== ENCOUNTER 2023-02-09 13:37 | Outpatient (CLI) | payer MEDICARE, SELFPAY ==
--- NOTE | ~2023-02-09 | MM_ITS ---
EXAMINATION: MM screening manuela BI w rolando HISTORY: Screening mammogram TECHNIQUE: Craniocaudal and mediolateral oblique 3-D tomosynthesis images were obtained and synthetic 2-D images were generated. CAD analysis was submitted and interpreted. COMPARISON: 11/24/2021, 04/21/2020, 01/2018 bilateral screening mammogram examinations BREAST PARENCHYMAL COMPOSITION: There are scattered areas of fibroglandular density. FINDINGS: There is no evidence of suspicious mass, calcification, or architectural distortion to sugg est malignancy in either breast. There has been no suspicious interval change. IMPRESSION: 1. No mammographic evidence of malignancy. 2. Recommend routine screening mammography in one year. BI-RADS Category 1: Negative Reviewed, dictated and finalized at location A.
== END 2023-02-09 13:38 | disposition home or self-care (01) ==
LOC: CHSIMG 13:38
PROVIDERS: PCP Family Medicine; Visit Provider Physician Assistant
DX: Z12.31 Encounter for screening mammogram for malignant neoplasm of breast (principal)
CPT/HCPCS: 77063; 77067

== ENCOUNTER 2023-02-15 09:51 | Outpatient (CLI) | payer MEDICARE, SELFPAY ==
--- NOTE | ~2023-02-15 | XR_ITS ---
XR chest 2V 02/15/2023 10:10 Indication: Shortness of breath. A. fib. Hypertension. Procedure: 2 view chest Comparison: Comparison to multiple prior studies sequentially, with oldest reviewed study dated 05/14. Findings: Cardiomegaly. Patchy bilateral airspace disease. No pleural effusion or pneumothorax. No ac oneida osseous abnormality. There are vertebroplasty changes in the lower thoracic spine. Impression: 1: Patchy bilateral infiltrates of the mid and lower lungs which may represent atelectasis or develop ing pneumonia. Reviewed, dictated and finalized at location B. Impression: 1: Patchy bilateral infiltrates of the mid and lower lungs which may represent atelectasis or developing pneumonia.
== END 2023-02-15 09:52 | disposition home or self-care (01) ==
PROVIDERS: PCP Family Medicine; Visit Provider Nurse Practitioner Family
DX: R06.09 Other forms of dyspnea (principal); R06.02 Shortness of breath; I10 Essential (primary) hypertension; R91.8 Other nonspecific abnormal finding of lung field; Z86.79 Personal history of other diseases of the circulatory system
CPT/HCPCS: 71046

== ENCOUNTER 2023-03-23 10:38 | Outpatient (CLI) | payer MEDICARE, SELFPAY ==
--- NOTE | ~2023-03-23 | XR_ITS ---
Clinical Indication: Dyspnea PA and lateral views of the chest: Comparison: 02/15/2023 Findings: Probable minimal left pleural effusion with left basilar atelectatic change noted. Right ok ng clear. Cardiomediastinal silhouette is within normal limits. Bones and soft tissues are unremarka ble. Impression: Minimal left pleural effusion and minimal left basilar atelectatic change. Reviewed, dictated and finalized at location . PULLER Impression: Minimal left pleural effusion and minimal left basilar atelectatic change.
== END 2023-03-23 10:39 | disposition home or self-care (01) ==
PROVIDERS: PCP Family Medicine; Visit Provider Nurse Practitioner Family
DX: J90 Pleural effusion, not elsewhere classified (principal); R06.00 Dyspnea, unspecified
CPT/HCPCS: 71046

== ENCOUNTER 2023-06-19 07:40 | Outpatient (CLI) | payer MEDICARE, SELFPAY ==
[2023-06-19 07:57] LABS: Basophils Absolute Auto 0.03 K/mm3 (0.00-0.10); Basophils Percent Auto 0.5 % (0.0-1.0); Eosinophils Absolute Auto 0.16 K/mm3 (0.02-0.50); Eosinophils Percent Auto 2.8 % (1.0-6.0); Hematocrit 37.6 % (35.0-42.0); Immature Granulocyte Absolute 0.02 K/mm3 (0.00-0.00); Immature Granulocyte Percent A 0.3 % (0.0-0.0); Lymphocytes Absolute Auto 1.22 K/mm3 (1.10-4.50); Lymphocytes Percent Auto 21.1 % (18.0-42.0); Mean Corpuscular HGB Conc 31.9 g/dL (32.0-36.0); Mean Corpuscular Hemoglobin 27.5 pg (27.0-31.0); Mean Corpuscular Volume 86.2 fL (78.0-102.0); Mean Platelet Volume 8.8 fl (9.2-11.8); Monocytes Absolute Auto 0.46 K/mm3 (0.10-0.90); Neutrophils Absolute Auto 3.9 K/mm3 (1.7-7.2); Neutrophils Percent Auto 67.3 % (50.0-70.0); Platelet Count Result 190 K/mm3 (150-420); Red Blood Count 4.36 M/mm3 (4.20-5.40); Red Cell Distribution Width 14.6 % (11.6-14.4); White Blood Count 5.8 K/mm3 (4.8-10.8)
[2023-06-19 08:05] LABS: Creatinine Urine 45.38 mg/dL (40-278); MALB Creatinine Ratio 66.1 mg/g (0-30)
[2023-06-19 08:07] LABS: Hemoglobin A1C 6.1 % (<5.7)
[2023-06-19 08:45] LABS: Alanine Aminotransferase 23 U/L (14-59); Albumin Level 3.7 g/dL (3.4-5.0); Alkaline Phosphatase 63 U/L (46-116); Anion Gap 11 mmol/L (8-16); Aspartate Amino Transferase 22 U/L (15-37); Bilirubin,Total 0.9 mg/dL (0.00-1.00); Blood Urea Nitrogen 23 mg/dL (7-18); Carbon Dioxide 27 mmol/L (21-32); Chloride 101 mmol/L (98-108); Cholesterol 158 mg/dL (0-200); Estimated Glomerular Filt Rate 54; Free T4 Free Thyroxine Reflex 1.01 ng/dL (0.76-1.46); Glucose 98 mg/dL (70-99); HDL Direct 61 mg/dL (40-60); LDL Cholesterol Calculated 75 mg/dL (<130); Osmolality Calculated 291 mOsm/kg (285-295); Potassium 4.6 mmol/L (3.5-5.1); Sodium 139 mmol/L (136-145); Thyroid Stimulating Hormone Reflex 4.55 u/IU/mL (0.36-3.74); Total Protein 7.3 g/dL (6.4-8.2); Triglycerides 110 mg/dL (0-150)
== END 2023-06-19 07:41 | disposition home or self-care (01) ==
LOC: CHSLAB 07:41
PROVIDERS: PCP Family Medicine; Visit Provider Family Medicine
DX: E11.9 Type 2 diabetes mellitus without complications (principal); E03.9 Hypothyroidism, unspecified; E78.2 Mixed hyperlipidemia; R53.83 Other fatigue
CPT/HCPCS: 36415; 80053; 80061; 82043; 83036; 84439; 84443; 85025

== ENCOUNTER 2023-06-23 07:48 | Outpatient (CLI) | payer MEDICARE, SELFPAY ==
[2023-06-23 08:38] LABS: Creatine Kinase 61 U/L (26-192)
[2023-06-23 09:19] LABS: Erythrocyte Sedimentation Rate 22 mm/hr (0-20)
[2023-06-25 20:40] LABS: Vitamin D 25 Hydroxy 66 ng/mL (30-100)
== END 2023-06-23 07:49 | disposition home or self-care (01) ==
LOC: CHSLAB 07:50
PROVIDERS: PCP Family Medicine; Visit Provider Family Medicine
DX: E55.9 Vitamin D deficiency, unspecified (principal); M79.10 Myalgia, unspecified site
CPT/HCPCS: 36415; 82306; 82550; 85652

== ENCOUNTER 2023-09-13 11:16 | Outpatient (RCR) | payer MEDICARE, SELFPAY ==
--- NOTE | 2023-09-13 13:01 | PTOPEVAL1 ---
Assessment and note entered by Chandan Parham Evaluation Information Assessment Status Evaluation Diagnosis left shoulder tendonitis, left shoulder pain Onset 03/17/23 Subjective Information Pt. reports that that she developed shoulder about 6 months ago. She reports no particular incident that started the left shoulder pain. She states that she is right hand dominant, and had recent CTR on the right, requiring more left arm movement . She describes her left shoulder pain in the area of the lateral brachial region. She states that pain is not constant. She describes most pain with reaching away from her body with the left hand. She states that she avoids lifting anything of significant weight with the left arm. She states that she is sleeping well. She reports that she does use Biofreeze on the left shoulder to ease pain. She reports that pain is noted with dressing and doing her hair. She reports that her goal is to reduce her left shoulder pain. Reported Pain Level Pain Score 1: Self Report Assessment PT Clinical Summary Pt. is an 83 year old female who enters the clinic with left shoulder pain due to impingement. She present with impaired ROM, impaired strength, pain and impaired postural awareness. Continued skilled PT is indicated in order to improve these areas to allow for pt. to achieve her goal of improved comfort with IADL's. Plan of Care Interventions Hot Pack/Cold Pack,Manual Therapy,Neuro Re- education,Patient/Caregiver Educati,Therapeutic Activities,Therapeutic Exercise PT Services Indicated Yes Treatment Frequency and 2x/week x 10 visits Duration These treatments will address the objective and functional deficits as defined above. The patient will be advanced safely and appropriately in order for the patient to progress towards his/her prior level of function. Additional exercises will be introduced and as well as a comprehensive home exercise program upon discharge, if needed, ?to ensure carryover of functional gains achieved in the clinic. This treatment plan has been reviewed and agreement upon by the patient.
--- NOTE | 2023-09-13 13:02 | OPREHPOC ---
Outpatient Therapy Plan of Care This is a Multidisciplinary Plan of Care that may contain components documented by all disciplines (PT, OT, and ST.) PT Problem 1 PT Problem #1 Knowledge Deficit PT Goal 1 Goal Pt. will be independent with a HEP addressing strength and postural awareness Target Visit 2 PT Problem 2 PT Problem #2 Pain PT Goal 1 Goal Pt. will report pain levels at 2/10 at worst with overhead left u.e. movements Target Visit 10 PT Problem 3 PT Problem #3 Impaired Strength PT Goal 1 Goal Pt. will present with 5/5 gross proximal left ue strength Pt. will be able to lift 2-3# object overhead to 140 degrees flexion to improve overhead function. Target Visit 10
--- NOTE | 2023-10-16 09:12 | OPREHPOC ---
Outpatient Therapy Plan of Care This is a Multidisciplinary Plan of Care that may contain components documented by all disciplines (PT, OT, and ST.) PT Problem 1 PT Problem #1 Knowledge Deficit PT Goal 1 Goal Pt. will be independent with a HEP addressing strength and postural awareness Target Visit 2 Progress Met PT Problem 2 PT Problem #2 Pain PT Goal 1 Goal Pt. will report pain levels at 2/10 at worst with overhead left u.e. movements Target Visit 10 Progress Met PT Problem 3 PT Problem #3 Impaired Strength PT Goal 1 Goal Pt. will present with 5/5 gross proximal left ue strength. met Pt. will be able to lift 2-3# object overhead to 140 degrees flexion to improve overhead function. met Target Visit 10 Progress Met
--- NOTE | 2023-10-16 09:13 | PTOPDC ---
Assessment and note entered by JT File, PT Evaluation Information Assessment Status Discharge Diagnosis left shoulder tendonitis, left shoulder pain ICD-10 Condition Codes (PT) M25.512 Onset 03/17/23 Subjective Information she reports she feels pretty good today. she reports the R wrist no longer bothers her. she reports the L shoulder feels much better. Reported Pain Level Pain Score 0,1: Self Report Assessment PT Clinical Summary mrs. best presents to skilled PT services for [id number] skilled therapy visit today. she has significantly improved in rom and strength of the L shoulder, while also keeping her pain down. she has met all goals for skilled PT today. she will DC therapy, and continue with HEP independent at home. Plan of Care PT Services Indicated Yes
== END 2023-10-16 10:33 | disposition home or self-care (01) ==
LOC: CHSPT 11:16
PROVIDERS: Visit Provider Orthopaedic Surgery
DX: M75.82 Other shoulder lesions, left shoulder (principal)
CPT/HCPCS: 97110; 97150; 97161

== ENCOUNTER 2023-10-16 07:38 | Outpatient (CLI) | payer MEDICARE, SELFPAY ==
[2023-10-16 08:41] LABS: Alanine Aminotransferase 21 U/L (14-59); Albumin Level 3.4 g/dL (3.4-5.0); Alkaline Phosphatase 63 U/L (46-116); Anion Gap 10 mmol/L (4-12); Aspartate Amino Transferase 21 U/L (15-37); Bilirubin,Total 0.8 mg/dL (0.00-1.00); Blood Urea Nitrogen 25 mg/dL (7-18); Calcium 9.1 mg/dL (8.5-10.1); Carbon Dioxide 27 mmol/L (21-32); Chloride 100 mmol/L (98-108); Estimated Glomerular Filt Rate 47; Glucose 106 mg/dL (70-99); Osmolality Calculated 288 mOsm/kg (285-295); Potassium 4.7 mmol/L (3.5-5.1); Sodium 137 mmol/L (136-145); Total Protein 7.2 g/dL (6.4-8.2)
[2023-10-16 08:45] LABS: Thyroid Stimulating Hormone Reflex 4.83 u/IU/mL (0.36-3.74)
[2023-10-16 09:04] LABS: Free T4 Free Thyroxine Reflex 1.03 ng/dL (0.76-1.46)
[2023-10-16 11:49] LABS: Appearance Urine Clear (Clear); Bilirubin Urine Negative (Negative); Blood Urine Negative (Negative); Color Urine Light Yellow (Yellow); Glucose Urine UA Negative (Negative); Ketones Urine Negative (Negative); Leukocyte Esterase Ur Trace LEU/UL (Negative); Nitrate Urine Negative (Negative); Protein Urine Negative (Negative); Specific Grav Ur <= 1.005 (1.010-1.020); Urobilinogen Urine 0.2 mg/dL (0.2-1.0); pH Urine 6.5 (5.0-8.0)
[2023-10-16 12:00] LABS: Add Urine Microscopic? YES; Bacteria Urine Trace /hpf; RBC Urine None seen /hpf (0-2); Squamous Epithelial Cell Urine Few /hpf (Few); WBC Urine 0-3 /hpf (0-3)
== END 2023-10-16 07:39 | disposition home or self-care (01) ==
PROVIDERS: PCP Family Medicine; Visit Provider Physician Assistant Medical
DX: R30.0 Dysuria (principal); E03.9 Hypothyroidism, unspecified; E11.9 Type 2 diabetes mellitus without complications
CPT/HCPCS: 36415; 80053; 81001; 83036; 84439; 84443

== ENCOUNTER 2023-11-27 15:31 | Outpatient (CLI) | payer MEDICARE, SELFPAY ==
--- NOTE | ~2023-11-27 | XR_ITS ---
EXAMINATION: XR chest 2V Exam Date/Time: 11/27/2023 15:43 CDT HISTORY: COUGH AND HOARSE VOICE Comparison: 03/23/2023. RESULT: Lines, tubes, and devices: Lower thoracic spine vertebroplasty cement. Lungs and pleura: Segmental airspace disease in the left lower lobe. Streaky peripheral left midlung and bibasilar atelectasis/scar. Mild left costophrenic angle blunting. Cardiomediastinal silhouette: Stable. Other: No acute osseous or upper abdominal finding. IMPRESSION: Segmental left lower lobe airspace disease, may represent atelectasis or pneumonia. Small left pleura l effusion versus chronic pleural scarring. Reviewed, dictated and finalized at location K. IMPRESSION: Segmental left lower lobe airspace disease, may represent atelectasis or pneumo elle. Small left pleural effusion versus chronic pleural scarring.
== END 2023-11-27 15:32 | disposition home or self-care (01) ==
LOC: ANHIMG 15:34
PROVIDERS: PCP Family Medicine; Visit Provider Nurse Practitioner Family
DX: R05.9 Cough, unspecified (principal); R06.09 Other forms of dyspnea; R91.8 Other nonspecific abnormal finding of lung field
CPT/HCPCS: 71046

== ENCOUNTER 2023-12-12 08:36 | Outpatient (CLI) | payer MEDICARE, SELFPAY ==
[2023-12-12 08:51] LABS: Basophils Absolute Auto 0.02 K/mm3 (0.00-0.10); Basophils Percent Auto 0.3 % (0.0-1.0); Eosinophils Absolute Auto 0.11 K/mm3 (0.02-0.50); Eosinophils Percent Auto 1.7 % (1.0-6.0); Hematocrit 38.6 % (35.0-42.0); Hemoglobin 12.7 g/dL (11.7-13.8); Immature Granulocyte Absolute 0.04 K/mm3 (0.00-0.00); Immature Granulocyte Percent A 0.6 % (0.0-0.0); Lymphocytes Absolute Auto 1.24 K/mm3 (1.10-4.50); Lymphocytes Percent Auto 19.5 % (18.0-42.0); Mean Corpuscular HGB Conc 32.9 g/dL (32-36); Mean Corpuscular Hemoglobin 29.1 pg (27.0-31.0); Mean Corpuscular Volume 88.3 fL (78.0-102.0); Mean Platelet Volume 8.8 fl (9.2-11.8); Monocytes Absolute Auto 0.56 K/mm3 (0.10-0.90); Monocytes Percent Auto 8.8 % (2.0-11.0); Neutrophils Absolute Auto 4.38 K/mm3 (1.70-7.20); Neutrophils Percent Auto 69.1 % (50.0-70.0); Platelet Count Result 216 K/mm3 (150-420); Red Blood Count 4.37 M/mm3 (4.20-5.40); Red Cell Distribution Width 14.8 % (11.6-14.4); White Blood Count 6.4 K/mm3 (4.8-10.8)
== END 2023-12-12 08:37 | disposition home or self-care (01) ==
LOC: CHSLAB 08:37
PROVIDERS: PCP Family Medicine; Visit Provider Nurse Practitioner Family
DX: J18.9 Pneumonia, unspecified organism (principal)
CPT/HCPCS: 36415; 85025

== ENCOUNTER 2023-12-25 10:50 | Outpatient (CLI) | payer MEDICARE, SELFPAY ==
--- NOTE | ~2023-12-25 | XR_ITS ---
Clinical Indication: Pneumonia PA and lateral views of the chest: Comparison: 11/27/2023 Findings: Stable linear left midlung scarring. The lungs are otherwise clear, without evidence of foc al consolidation or pleural effusion. Cardiomediastinal silhouette is stable. Stable vertebroplasty at T12.. Impression: No acute abnormality. Stable linear left midlung scarring. Reviewed, dictated and finalized at location . Impression: No acute abnormality. Stable linear left midlung scarring.
== END 2023-12-25 10:51 | disposition home or self-care (01) ==
LOC: CHSLAB 10:52 → CHSIMG 10:52
PROVIDERS: PCP Family Medicine; Visit Provider Nurse Practitioner Family
DX: J18.9 Pneumonia, unspecified organism (principal)
CPT/HCPCS: 71046

== ENCOUNTER 2024-03-08 07:41 | Outpatient (CLI) | payer MEDICARE, SELFPAY ==
[2024-03-08 08:00] LABS: Add Urine Microscopic? YES; Appearance Urine Clear (Clear); Bilirubin Urine Negative (Negative); Blood Urine Negative (Negative); Color Urine Light Yellow (Yellow); Glucose Urine UA Negative (Negative); Ketones Urine Negative (Negative); Leukocyte Esterase Ur Trace LEU/UL (Negative); Nitrate Urine Negative (Negative); Protein Urine Negative (Negative); Urobilinogen Urine 0.2 mg/dL (0.2-1.0); pH Urine 6.5 (5.0-8.0)
[2024-03-08 08:04] LABS: Bacteria Urine Trace /hpf; RBC Urine None seen /hpf (0-2); Renal Epithelial Cells Urine Few /hpf; Squamous Epithelial Cell Urine Moderate /hpf (Few); WBC Urine None seen /hpf (0-3)
[2024-03-08 08:18] LABS: Hemoglobin A1C 5.7 % (<5.7)
[2024-03-08 08:55] LABS: Erythrocyte Sedimentation Rate 31 mm/hr (0-20)
[2024-03-08 09:06] LABS: Alanine Aminotransferase 21 U/L (14-59); Albumin Level 3.4 g/dL (3.4-5.0); Alkaline Phosphatase 80 U/L (46-116); Anion Gap 9 mmol/L (4-12); Aspartate Amino Transferase 16 U/L (15-37); Bilirubin,Total 1.1 mg/dL (0.00-1.00); Blood Urea Nitrogen 22 mg/dL (7-18); Calcium 9.3 mg/dL (8.5-10.1); Carbon Dioxide 29 mmol/L (21-32); Chloride 103 mmol/L (98-108); Cholesterol 193 mg/dL (0-200); Estimated Glomerular Filt Rate 46; Glucose 106 mg/dL (70-99); HDL Direct 60 mg/dL (40-60); LDL Cholesterol Calculated 110 mg/dL (<130); Osmolality Calculated 295 mOsm/kg (285-295); Potassium 4.4 mmol/L (3.5-5.1); Sodium 141 mmol/L (136-145); Thyroid Stimulating Hormone Reflex 5.09 u/IU/mL (0.36-3.74); Total Protein 6.8 g/dL (6.4-8.2); Triglycerides 113 mg/dL (0-150)
[2024-03-08 09:36] LABS: Free T4 Free Thyroxine Reflex 0.99 ng/dL (0.76-1.46)
== END 2024-03-08 07:42 | disposition home or self-care (01) ==
LOC: CHSLAB 07:42
PROVIDERS: PCP Family Medicine; Visit Provider Family Medicine
DX: M35.3 Polymyalgia rheumatica (principal); N18.30 Chronic kidney disease, stage 3 unspecified; E03.9 Hypothyroidism, unspecified; E78.2 Mixed hyperlipidemia; E11.9 Type 2 diabetes mellitus without complications
CPT/HCPCS: 36415; 80053; 80061; 81001; 83036; 84439; 84443; 85652

== ENCOUNTER 2024-07-15 07:53 | Outpatient (CLI) | payer MEDICARE, SELFPAY ==
--- OUTSIDE RECORDS SUMMARY | 2024-07-15 08:01 | XMS_ITS | Clinical Summary ---
Author Organization [facility] [address] Address [address] [place] [address] Care Team Providers Care Meat Department Manager Name Role Phone Gisselle Noel MD Primary Care Provider [phone] Allergies Active Allergy Reactions Criticality Noted Date Comments Adhesive Tape-Silicones Rivaroxaban Hives Medium Medications amLODIPine (NORVASC) 5 mg tablet take 1 tablet by oral route every day 0 0 07/02/2015 Active lovastatin (MEVACOR) 10 mg tablet take 1 tablet by oral route every day with the evening meal 0 0 07/02/2015 Active levothyroxine sodium (TIROSINT) 50 mcg capsule take 1 Capsule by oral route every day 0 0 07/02/2015 Active montelukast (SINGULAIR) 10 mg tablet take 1 tablet by oral route every day in the evening 0 0 05/18/2016 Active calcium carbonate-vitam in D3 1,500 mg (600mg elemental) -800 unit per tablet Take 1 tablet by mouth daily Active glucosamine-cho nd-msm-vit C-Mn 500-400-166.6 mg tablet Take by mouth. Active multivitamin capsule Take 1 capsule by mouth daily Active ascorbic acid (VITAMIN C) 500 mg tablet,chewable Acti ve alfalfa 650 mg tablet Take by mouth 4 (four) times a day. Active famotidine (PEPCID) 40 mg tablet Take 1 tablet (40 mg total) by mouth daily Active losartan (COZAAR) 50 mg tablet 10/18/2019 Active vitamin E57-nzgql acid 0.5-1 mg tablet Take by mouth Active magnesium citrate 125 mg capsule Take by mouth Active fluticasone furoate (ARNUITY) 200 mcg/actuation inhaler Inhale 1 puff daily Rinse mouth with water after use. Do not swallow. Active omega-3 fatty acids 1,000 mg capsule Take by mouth Active gabapentin (NEURONTIN) 300 mg capsule Take by mouth nightly 12/29/2020 Active loratadine (CLARITIN) 10 mg tablet Take 1 tablet (10 mg total) by mouth daily Active diphenhydrAMINE (BENADRYL) 25 mg capsule Take 10 mg by mouth every 6 (six) hours as needed for itching 10mg tablet Q6hrs at HS Active predniSONE (DELTASONE) 10 mg tablet Take 1 tablet (10 mg) by mouth daily 10/31/2023 Active apixaban (Eliquis) 5 mg tablet Take 1 tablet (5 mg total) by mouth 2 (two) times a day 200 tablet 1 04/18/2024 Active metoprolol XL (TOPROL-XL) 50 mg extended release tablet TAKE 1 TABLET BY MOUTH DAILY 100 tablet 2 04/18/2024 Active Active Problems Problem Noted Date Diagnosed Date Permanent atrial fibrillation 02/17/2022 Resolved Problems Problem Noted Date Diagnosed Date Resolved Date Paroxysmal atrial fibrillation (CMS/HCC) 03/01/2017 02/17/2022 Encounters Date Type Department Care Team Description 05/30/2024 1:45 PM SPECIAL TAX AUDITOR Office Visit [facility] Medical [facility] Cardiology at [address] [place] [address] Chandan Diggs MD Permanent atrial fibrillation (HCC) (Primary Dx) 04/18/2024 Telephone [facility] Medical [facility] Cardiology [address] [facility] [address] [place] [address] Chandan Diggs MD from Last 3 Months Medical History Medical History Date Comments Atrial fibrillation (HCC) Social History Tobacco Use Types Packs/Day Years Used Date Smoking Tobacco: Never Smokeless Tobacco: Never Tobacco Cessation:Counseling Given: Not Answered Alcohol Use Standard Drinks/Week Comments No 0 (1 standard drink = 0.6 oz pur e alcohol) Comments Unknown Sex and Gender Information Value Date Recorded Sex Assigned at Not on file Legal Sex Female 1:52 PM SPECIAL TAX AUDITOR Gender Identity Not on file Sexual Orientation Not on file Obstetrics History Last Filed Vital Signs Vital Sign Reading Time Taken Comments Blood Pressure 132/70 05/30/2024 1:37 PM SPECIAL TAX AUDITOR Pulse 96 05/30/2024 1:37 PM SPECIAL TAX AUDITOR Temperature - - Respiratory Rate - - Oxygen Saturation 86% 05/30/2024 1:37 PM SPECIAL TAX AUDITOR Inhaled Oxygen Concentration - - Weight 96.6 kg (213 lb) 05/30/2024 1:37 PM SPECIAL TAX AUDITOR Height 152.4 cm (5') 05/30/2024 1:37 PM SPECIAL TAX AUDITOR Body Mass Index 41.6 05/30/2024 1:37 PM SPECIAL TAX AUDITOR Plan of Treatment Health Maintenance Due Date Last Done Comments Depression Screening 1940 Fall Risk Assessment 1940 Osteoporosis Screening-Bone Density Scan 1940 DTaP/Tdap/Td Vaccine (1 - Tdap) 02/21/1951 Hepatitis B Screening 02/21/1958 Well Visit 65+ 02/21/2005 Zoster Vaccine (2 of 3) 05/11/2012 03/16/2012 Pneumococcal vaccine 65+ (2 of 2 - PPSV23) 01/25/2017 01/26/2016 Influenza Vaccine (#1) 2023 9, 01/15/2018, 01/13/2014 Insurance [facility] MEDICARE ADVANTAGE Care Teams Meat Department Manager Relationship Specialty Start Date End Date Gisselle Noel MD PCP - General 02/16/16
--- OUTSIDE RECORDS SUMMARY | 2024-07-15 08:01 | XMS_ITS | Referral Summary ---
Author Organization [facility] [address] [facility] [address] Address [address] [place] [address] Care Team Providers Care House Director Name Role Phone Gisselle Noel MD Primary Care Provider [phone] Encounters Date Type Department Care Team Description 05/30/2024 1:45 PM COUNTER POCKET TRIMMER Office Visit [facility] Medical [facility] Cardiology at [address] [place] [address] Chandan Diggs MD Permanent atrial fibrillation (HCC) (Primary Dx) 04/18/2024 Telephone [facility] Medical [facility] Cardiology [address] [facility] [address] [place] [address] Chandan Diggs MD from Last 3 Months Allergies Active Allergy Reactions Criticality Noted Date [...] (COZAAR) 50 mg tablet 10/18/2019 Active vitamin Z69-qqkmo acid 0.5-1 mg tablet Take by mouth [...] Date Paroxysmal atrial fibrillation (CMS/HCC) 03/01/2017 02/17/2022 Social History Tobacco Use Types Packs/Day Years Used Date Smoking Tobacco: Never Smokeless Tobacco: Never Tobacco Cessation:Counseling Given: Not Answered Alcohol Use Standard Drinks/Week Comments No 0 (1 standard drink = 0.6 oz pur e alcohol) Comments Unknown Sex and Gender Information Value Date Recorded Sex Assigned at Not on file Legal Sex Female 1:52 PM COUNTER POCKET TRIMMER Gender Identity Not on file Sexual Orientation Not on file Last Filed Vital Signs Vital Sign Reading Time Taken Comments Blood Pressure 132/70 05/30/2024 1:37 PM COUNTER POCKET TRIMMER Pulse 96 05/30/2024 1:37 PM COUNTER POCKET TRIMMER Temperature - - Respiratory Rate - - Oxygen Saturation 86% 05/30/2024 1:37 PM COUNTER POCKET TRIMMER Inhaled Oxygen Concentration - - Weight 96.6 kg (213 lb) 05/30/2024 1:37 PM COUNTER POCKET TRIMMER Height 152.4 cm (5') 05/30/2024 1:37 PM COUNTER POCKET TRIMMER Body Mass Index 41.6 05/30/2024 1:37 PM COUNTER POCKET TRIMMER Plan of Treatment Not on file Insurance [place] [id number] Care Teams House Director Relationship Specialty Start Date End Date Gisselle Noel MD PCP - General 02/16/16
[2024-07-15 08:52] LABS: Alanine Aminotransferase 17 U/L (14-59); Albumin Level 3.3 g/dL (3.4-5.0); Alkaline Phosphatase 74 U/L (46-116); Anion Gap 10 mmol/L (4-12); Aspartate Amino Transferase 21 U/L (15-37); Bilirubin Direct 0.2 mg/dL (0-0.2); Bilirubin,Total 0.8 mg/dL (0.00-1.00); Blood Urea Nitrogen 18 mg/dL (7-18); Calcium 9.2 mg/dL (8.5-10.1); Carbon Dioxide 27 mmol/L (21-32); Chloride 101 mmol/L (98-108); Estimated Glomerular Filt Rate 47; Glucose 108 mg/dL (70-99); Osmolality Calculated 288 mOsm/kg (285-295); Sodium 138 mmol/L (136-145); Total Protein 6.9 g/dL (6.4-8.2)
[2024-07-15 09:26] LABS: Free T4 Free Thyroxine Reflex 1.26 ng/dL (0.76-1.46); Thyroid Stimulating Hormone Reflex 6.45 u/IU/mL (0.36-3.74)
== END 2024-07-15 07:54 | disposition home or self-care (01) ==
LOC: CHSLAB 07:55
PROVIDERS: PCP Family Medicine; Visit Provider Family Medicine
DX: E03.9 Hypothyroidism, unspecified (principal); R17 Unspecified jaundice; N18.30 Chronic kidney disease, stage 3 unspecified
CPT/HCPCS: 36415; 80048; 80076; 84439; 84443

== ENCOUNTER 2024-07-29 11:32 | Outpatient (CLI) | payer MEDICARE, SELFPAY ==
--- NOTE | ~2024-07-29 | XR_ITS ---
3 VIEWS LUMBAR SPINE Ordering provider: Gisselle Noel MD History: . M54.50 - Low back pain, unspecified NON INJ . Comparison: None. FINDINGS: VERTEBRAL BODIES:Levoscoliosis. Degenerative changes of the spine. Vertebroplasty of T12 with old compression fracture. Minimal anterolisthesis at the level of L4-L5. No visible fracture or subluxation. DISK SPACES: Narrowing of all the disc spaces. Multilevel facet joint disease. SOFT TISSUES: Vascular calcifications. IMPRESSION: No acute osseous abnormality lumbar spine. Minimal anterolisthesis at the level of L4-L5. Multilevel facet degenerative disease. Reviewed, dictated and finalized at location A.
--- OUTSIDE RECORDS SUMMARY | 2024-07-29 13:10 | XMS_ITS | Clinical Summary ---
Author Organization [facility] [address] Address [address] [place] [address] Care Team Providers Care Office Clinician Name Role Phone Gisselle Noel MD Primary Care Provider [phone] Allergies Active Allergy Reactions Criticality Noted Date [...] (COZAAR) 50 mg tablet 10/18/2019 Active vitamin M93-jmpgm acid 0.5-1 mg tablet Take by mouth [...] Department Care Team Description 05/30/2024 1:45 PM AGRICULTURAL AIRCRAFT PILOT Office Visit [facility] Medical Group Cardiology at [address] [place] [address] Chandan Diggs MD Permanent atrial fibrillation (HCC) (Primary Dx) from Last 3 Months Medical History Medical [...] on file Legal Sex Female 1:52 PM AGRICULTURAL AIRCRAFT PILOT Gender Identity Not on file Sexual Orientation Not on file Obstetrics History Last Filed Vital Signs Vital Sign Reading Time Taken Comments Blood Pressure 132/70 05/30/2024 1:37 PM AGRICULTURAL AIRCRAFT PILOT Pulse 96 05/30/2024 1:37 PM AGRICULTURAL AIRCRAFT PILOT Temperature - - Respiratory Rate - - Oxygen Saturation 86% 05/30/2024 1:37 PM AGRICULTURAL AIRCRAFT PILOT Inhaled Oxygen Concentration - - Weight 96.6 kg (213 lb) 05/30/2024 1:37 PM AGRICULTURAL AIRCRAFT PILOT Height 152.4 cm (5') 05/30/2024 1:37 PM AGRICULTURAL AIRCRAFT PILOT Body Mass Index 41.6 05/30/2024 1:37 PM AGRICULTURAL AIRCRAFT PILOT Plan of Treatment Health Maintenance Due Date Last Done Comments Depression Screening 1940 Fall Risk Assessment 1940 Osteoporosis Screening-Bone Density Scan 1940 DTaP/Tdap/Td Vaccine (1 - Tdap) 02/21/1951 Hepatitis B Screening 02/21/1958 Well Visit 65+ 02/21/2005 Zoster Vaccine (2 of 3) 05/11/2012 03/16/2012 Pneumococcal vaccine 65+ (2 of 2 - PPSV23) 01/25/2017 01/26/2016 Influenza Vaccine (Season Ended) 2024 02/06/2019, 01/15/2018, 01/13/2014 Insurance [facility] MEDICARE ADVANTAGE [facility] MEDIC[facility] Care Teams Office Clinician Relationship Specialty Start Date End Date Gisselle Noel MD PCP - General 02/16/16
--- OUTSIDE RECORDS SUMMARY | 2024-07-29 13:10 | XMS_ITS | Referral Summary ---
Author Organization [facility] [address] Address [address] [place] [address] Care Team Providers Care Title Checker Name Role Phone Gisselle Noel MD Primary Care Provider [phone] Encounters Date Type Department Care Team Description 05/30/2024 1:45 PM ETL DATA ARCHITECT Office Visit [facility] Medical Group Cardiology at [address] [place] [address] Chandan Diggs MD Permanent atrial fibrillation (HCC) (Primary Dx) from Last 3 Months Allergies Active Allergy [...] (COZAAR) 50 mg tablet 10/18/2019 Active vitamin A93-eqdgq acid 0.5-1 mg tablet Take by mouth [...] on file Legal Sex Female 1:52 PM ETL DATA ARCHITECT Gender Identity Not on file Sexual Orientation Not on file Last Filed Vital Signs Vital Sign Reading Time Taken Comments Blood Pressure 132/70 05/30/2024 1:37 PM ETL DATA ARCHITECT Pulse 96 05/30/2024 1:37 PM ETL DATA ARCHITECT Temperature - - Respiratory Rate - - Oxygen Saturation 86% 05/30/2024 1:37 PM ETL DATA ARCHITECT Inhaled Oxygen Concentration - - Weight 96.6 kg (213 lb) 05/30/2024 1:37 PM ETL DATA ARCHITECT Height 152.4 cm (5') 05/30/2024 1:37 PM ETL DATA ARCHITECT Body Mass Index 41.6 05/30/2024 1:37 PM ETL DATA ARCHITECT Plan of Treatment Not on file Insurance Care Teams Title Checker Relationship Specialty Start Date End Date Gisselle Noel MD PCP - General 02/16/16
== END 2024-07-29 11:33 | disposition home or self-care (01) ==
PROVIDERS: PCP Family Medicine; Visit Provider Family Medicine
DX: M43.16 Spondylolisthesis, lumbar region (principal); M47.896 Other spondylosis, lumbar region
CPT/HCPCS: 72110

== ENCOUNTER 2024-07-30 09:40 | Outpatient (CLI) | payer MEDICARE, SELFPAY ==
--- NOTE | ~2024-07-30 | XR_ITS ---
Clinical Indication: Cough PA and lateral views of the chest, and AP/oblique views of the right ribs: Comparison: 05/23/2014 Findings: There is linear scarring in the left lung base and left midlung. Right lung clear. Cardiom ediastinal silhouette is stable, enlarged. T12 vertebroplasty noted. No rib fracture seen in the righ t side. Impression: Linear scarring or atelectasis left lung base and left midlung, otherwise clear lungs. No rib fracture seen. Mild cardiomegaly. Reviewed, dictated and finalized at location . Impression: Linear scarring or atelectasis left lung base and left midlung, otherwise clear lungs. No rib fracture seen. Mild cardiomegaly.
--- NOTE | ~2024-07-30 | XR_ITS ---
Thoracic spine: Clinical Indication: Back pain AP and lateral views were performed. No acute fracture is seen. T12 vertebroplasty noted. The intervertebral disc spaces appear normal. Pa ravertebral soft tissues appear normal. Impression: No acute fracture. T12 vertebroplasty. Reviewed, dictated and finalized at [facility]. Impression: No acute fracture. T12 vertebroplasty.
--- OUTSIDE RECORDS SUMMARY | 2024-07-30 10:21 | XMS_ITS | Clinical Summary ---
Author Organization [facility] [place] [facility] [address] [place] [address] Care Team Providers Care Restaurant Team Member Name Role Phone Gisselle Noel MD Primary Care Provider [phone] Allergies Active Allergy Reactions Criticality Noted Date [...] (COZAAR) 50 mg tablet 10/18/2019 Active vitamin C51-mjwga acid 0.5-1 mg tablet Take by mouth [...] Department Care Team Description 05/30/2024 1:45 PM FOOD BEVERAGE SERVER Office Visit [facility] Medical Group Cardiology at [address] [place] [address] Chandan Diggs MD Permanent atrial [...] on file Legal Sex Female 1:52 PM FOOD BEVERAGE SERVER Gender Identity Not on file Sexual Orientation Not on file Obstetrics History Last Filed Vital Signs Vital Sign Reading Time Taken Comments Blood Pressure 132/70 05/30/2024 1:37 PM FOOD BEVERAGE SERVER Pulse 96 05/30/2024 1:37 PM FOOD BEVERAGE SERVER Temperature - - Respiratory Rate - - Oxygen Saturation 86% 05/30/2024 1:37 PM FOOD BEVERAGE SERVER Inhaled Oxygen Concentration - - Weight 96.6 kg (213 lb) 05/30/2024 1:37 PM FOOD BEVERAGE SERVER Height 152.4 cm (5') 05/30/2024 1:37 PM FOOD BEVERAGE SERVER Body Mass Index 41.6 05/30/2024 1:37 PM FOOD BEVERAGE SERVER Plan of Treatment Health Maintenance Due Date Last Done Comments Depression Screening 1940 Fall Risk Assessment 1940 Osteoporosis Screening-Bone Density Scan 1940 DTaP/Tdap/Td Vaccine (1 - Tdap) 02/21/1951 Hepatitis B Screening 02/21/1958 Well Visit 65+ 02/21/2005 Zoster Vaccine (2 of 3) 05/11/2012 03/16/2012 Pneumococcal vaccine 65+ (2 of 2 - PPSV23) 01/25/2017 01/26/2016 Influenza Vaccine (Season Ended) 2024 02/06/2019, 01/15/2018, 01/13/2014 Insurance [facility] MEDICARE ADVANTAGE [facility] Address: [facility] [address] [place] [address] [facility] [place] [address] Care Teams Restaurant Team Member Relationship Specialty Start Date End Date Gisselle Noel MD PCP - General 02/16/16
--- OUTSIDE RECORDS SUMMARY | 2024-07-30 10:21 | XMS_ITS | Referral Summary ---
Author Organization [facility] [address] Address [address] [place] [address] Care Team Providers Care Support Team Member Name Role Phone Gisselle Noel MD Primary Care Provider Encounters Date Type Department Care Team Description 05/30/2024 1:[address] REPORTER Office Visit [facility] Cardiology at [address] [place] [address] Chandan Diggs MD Permanent atrial [...] (COZAAR) 50 mg tablet 10/18/2019 Active vitamin A72-vokmv acid 0.5-1 mg tablet Take by mouth [...] on file Legal Sex Female 1:[address] REPORTER Gender Identity Not on file Sexual Orientation Not on file Last Filed Vital Signs Vital Sign Reading Time Taken Comments Blood Pressure 132/70 05/30/2024 1:[address] REPORTER Pulse 96 05/30/2024 1:[address] REPORTER Temperature - - Respiratory Rate - - Oxygen Saturation 86% 05/30/2024 1:[address] REPORTER Inhaled Oxygen Concentration - - Weight 96.6 kg (213 lb) 05/30/2024 1:[address] REPORTER Height 152.4 cm (5') 05/30/2024 1:[address] REPORTER Body Mass Index 41.6 05/30/2024 1:[address] REPORTER Plan of Treatment Not on file Insurance Care Teams Support Team Member Relationship Specialty Start Date End Date Gisselle Noel MD PCP - General 02/16/16
== END 2024-07-30 09:41 | disposition home or self-care (01) ==
LOC: ANHIMG 09:43
PROVIDERS: PCP Family Medicine; Visit Provider Family Medicine
DX: J98.4 Other disorders of lung (principal); I51.7 Cardiomegaly; M54.6 Pain in thoracic spine; R05.9 Cough, unspecified; Z98.890 Other specified postprocedural states
CPT/HCPCS: 71046; 71100; 72072

== ENCOUNTER 2024-08-01 13:26 | Outpatient (CLI) | payer MEDICARE, SELFPAY ==
--- NOTE | ~2024-08-01 | MR_ITS ---
MRI of the thoracic spine Clinical History: Pain Technique: Axial T2-weighted and gradient images, and sagittal T1-weighted, T2-weighted, and STIR ariana ges were acquired. Findings: T12 vertebroplasty noted, with minimal loss of height and hyperintense cement present. No o ther fracture or subluxation seen in the thoracic spine. Vertebral bodies otherwise maintain normal h eight and alignment. No bone marrow signal abnormality seen otherwise. There is moderate degenerative disc narrowing throughout the mid to lower thoracic spine. No significant disc bulge or herniation seen in the thoracic spine. No spinal canal stenosis or cord compression. There is mild left neural foraminal narrowing at T11-T12. There is moderate right neural foraminal narrowing at T9-T10. No abnormal signal seen in the spinal cord. Paravertebral soft tissues are unremarkable. Impression: T12 vertebral plasty. Mild degenerative spondylosis overall, as above. Reviewed, dictated and finalized at [facility]. Impression: T12 vertebral plasty. Mild degenerative spondylosis overall, as above.
== END 2024-08-01 13:27 | disposition home or self-care (01) ==
LOC: GOSHIMG 13:27
PROVIDERS: PCP Internal Medicine Critical Care Medicine; Referring Provider Specialist; Visit Provider Family Medicine
DX: M47.814 Spondylosis without myelopathy or radiculopathy, thoracic region (principal); Z98.890 Other specified postprocedural states
CPT/HCPCS: 72146

== ENCOUNTER 2024-10-14 12:30 | Outpatient (CLI) | payer MEDICARE, SELFPAY ==
--- NOTE | ~2024-10-14 | US_ITS ---
EXAMINATION: US venous doppler [facility] DATE: 10/14/2024 13:16 INDICATION: Swelling TECHNIQUE: Grayscale ultrasound images without and with compression and Doppler ultrasound images of the bilateral lower extremity veins were obtained. COMPARISON: None. FINDINGS: The visualized portions of right common femoral vein, profunda (deep) femoral vein, femoral vein, pop liteal vein, peroneal veins, posterior tibial veins, and greater saphenous vein outflow are patent. The visualized portions of left common femoral vein, profunda femoral vein, femoral vein, popliteal v ein, peroneal veins, posterior tibial veins, and greater saphenous vein outflow are patent. IMPRESSION: 1. No deep venous thrombosis. Reviewed, dictated and finalized at location A.
--- OUTSIDE RECORDS SUMMARY | 2024-10-14 12:35 | XMS_ITS | Referral Summary ---
Author Organization [facility] [address] Address [address] [place] [address] Care Team Providers Care Vanstone Machine Operator Name Role Phone Gisselle Noel MD Primary Care Provider [phone] Allergies Active Allergy Reactions Criticality Noted Date Comments Adhesive Tape-Silicones Rivaroxaban Hives Medium Medications amLODIPine (NORVASC) 5 mg tablet take 1 tablet by oral route every day 0 0 6 Active lovastatin (MEVACOR) 10 mg tablet take 1 tablet by oral route every day with the evening meal 0 0 6 Active levothyroxine sodium (TIROSINT) 50 mcg capsule take 1 Capsule by oral route every day 0 0 6 Active montelukast (SINGULAIR) 10 mg tablet take 1 tablet by oral route every day in the evening 0 0 7 Active calcium carbonate-wallace min D3 1,500 mg (600mg elemental) -800 unit per tablet Take 1 tablet by mouth daily Active glucosamine-ch ond-msm-vit C-Mn 500-400-166.6 mg tablet Take by mouth. Active multivitamin capsule Take 1 capsule by mouth daily Active ascorbic acid (VITAMIN C) 500 mg tablet,chewabl e Active alfalfa 650 mg tablet Take by mouth 4 (four) times a day. Active famotidine (PEPCID) 40 mg tablet Take 1 tablet (40 mg total) by mouth daily Active losartan (COZAAR) 50 mg tablet 0 Active vitamin U20-mzbvb acid 0.5-1 mg tablet Take by mouth Active magnesium citrate 125 mg capsule Take by mouth Active fluticasone furoate (ARNUITY) 200 mcg/actuation inhaler Inhale 1 puff daily Rinse mouth with water after use. Do not swallow. Active omega-3 fatty acids 1,000 mg capsule Take by mouth Active gabapentin (NEURONTIN) 300 mg capsule Take by mouth nightly 1 Active loratadine (CLARITIN) 10 mg tablet Take 1 tablet (10 mg total) by mouth daily Active diphenhydrAMIN E (BENADRYL) 25 mg capsule Take 10 mg by mouth every 6 (six) hours as needed for itching 10mg tablet Q6hrs at HS Active predniSONE (DELTASONE) 10 mg tablet Take 1 tablet (10 mg) by mouth daily 4 Active metoprolol XL (TOPROL-XL) 50 mg extended release tablet TAKE 1 TABLET BY MOUTH DAILY 100 tablet 2 5 Active Eliquis 5 mg tablet TAKE 1 TABLET BY MOUTH TWICE DAILY 200 tablet 2 5 Active apixaban (Eliquis) 5 mg tablet Take 1 tablet (5 mg total) by mouth 2 (two) times a day 200 tablet 1 5 09/24/19 25 Discontinued Active Problems Problem Noted Date Diagnosed Date [...] on file 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 Gender Identity Not on file Sexual Orientation Not on file Last Filed Vital Signs Vital Sign Reading Time Taken Comments Blood Pressure 132/70 05/30/2024 1:37 PM WORKER'S COMPENSATION CLAIMS EXAMINER Pulse 96 05/30/2024 1:37 PM WORKER'S COMPENSATION CLAIMS EXAMINER Temperature - - Respiratory Rate - - Oxygen Saturation 86% 05/30/2024 1:37 PM WORKER'S COMPENSATION CLAIMS EXAMINER Inhaled Oxygen Concentration - - Weight 96.6 kg (213 lb) 05/30/2024 1:37 PM WORKER'S COMPENSATION CLAIMS EXAMINER Height 152.4 cm (5') 05/30/2024 1:37 PM WORKER'S COMPENSATION CLAIMS EXAMINER Body Mass Index 41.6 05/30/2024 1:37 PM WORKER'S COMPENSATION CLAIMS EXAMINER Plan of Treatment Not on file Insurance Care Teams Vanstone Machine Operator Relationship Specialty Start Date End Date Gisselle Noel MD PCP - General 02/16/16
--- OUTSIDE RECORDS SUMMARY | 2024-10-14 12:35 | XMS_ITS | Clinical Summary ---
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 Gender Identity Not on file Sexual Orientation Not on file Obstetrics History Last Filed Vital Signs Vital Sign Reading Time Taken Comments Blood Pressure 132/70 05/30/2024 1:37 PM SLATE PICKER Pulse 96 05/30/2024 1:37 PM SLATE PICKER Temperature - - Respiratory Rate - - Oxygen Saturation 86% 05/30/2024 1:37 PM SLATE PICKER Inhaled Oxygen Concentration - - Weight 96.6 kg (213 lb) 05/30/2024 1:37 PM SLATE PICKER Height 152.4 cm (5') 05/30/2024 1:37 PM SLATE PICKER Body Mass Index 41.6 05/30/2024 1:37 PM SLATE PICKER Plan of Treatment Health Maintenance Due Date Last Done Comments Depression Screening 1940 Fall Risk Assessment 1940 Osteoporosis Screening-Bone Density Scan 1940 DTaP/Tdap/Td Vaccine (1 - Tdap) 02/21/1951 Hepatitis B Screening 02/21/1958 Well Visit 65+ 02/21/2005 Zoster Vaccine (2 of 3) 05/11/2012 03/16/2012 Pneumococcal vaccine 65+ (2 of 2 - PPSV23) 01/25/2017 01/26/2016 Influenza Vaccine (Season Ended) 2024 02/06/2019, 01/15/2018, 01/13/2014 Insurance Member Subscriber Plan / Payer (Ef fective 2022-Present) Name:Shandra Myers Relation to Subscriber:Self Name:Shandra Myers Payer ID:[id number] (NAIC) Type:[facility] MEDICARE Address: [place] [id number] [place] [phone] [facility] MEDICARE ADVANTAGE Care Teams Paper Cutter Relationship Specialty Start Date End Date Gisselle Noel MD PCP - General 02/16/16
== END 2024-10-14 12:31 | disposition home or self-care (01) ==
PROVIDERS: PCP Family Medicine; Visit Provider Family Medicine
DX: R22.43 Localized swelling, mass and lump, lower limb, bilateral (principal)
CPT/HCPCS: 93970

== ENCOUNTER 2024-12-24 07:24 | Outpatient (CLI) | payer MEDICARE, SELFPAY ==
[2024-12-24 07:40] LABS: Hematocrit 39.4 % (35.0-42.0); Hemoglobin 12.6 g/dL (11.7-13.8); Mean Corpuscular HGB Conc 32.0 g/dL (32-36); Mean Corpuscular Hemoglobin 29.6 pg (27.0-31.0); Mean Corpuscular Volume 92.5 fL (78.0-102.0); Platelet Count Result 211 K/mm3 (150-420); Red Blood Count 4.26 M/mm3 (4.20-5.40); White Blood Count 6.8 K/mm3 (4.8-10.8)
--- OUTSIDE RECORDS SUMMARY | 2024-12-24 07:44 | XMS_ITS | Clinical Summary ---
Author Organization [facility] [address] [facility] [address] [facility] [address] [place] [address] Care Team Providers Care Final Expense Agent Name Role Phone Gisselle Noel MD Primary Care Provider [phone] Allergies Active Allergy Reactions Criticality Noted Date Comments Adhesive Rash High 07/22/2024 Adhesive Tape-Silicones Cefaclor Rash Medium 07/22/2024 Clarithromycin Unknown 07/22/2024 Fexofenadine Unknown 07/22/2024 Levofloxacin Unknown 07/22/2024 Pseudoephedrine Unknown 07/22/2024 Rivaroxaban Hives Medium Medications amLODIPine (NORVASC) 5 [...] (COZAAR) 50 mg tablet 10/18/2019 Active vitamin G60-posoh acid 0.5-1 mg tablet Take by mouth [...] (10 mg) by mouth daily 10/31/2023 Active metoprolol XL (TOPROL-XL) 50 mg extended release tablet TAKE 1 TABLET BY MOUTH DAILY 100 tablet 2 04/18/2024 Active Eliquis 5 mg tablet TAKE 1 TABLET BY MOUTH TWICE DAILY 200 tablet 2 09/23/2024 Active Active Problems Problem Noted Date Diagnosed Date Permanent atrial fibrillation 02/17/2022 Resolved Problems Problem Noted Date Diagnosed Date Resolved Date Paroxysmal atrial fibrillation (CMS/HCC) 03/01/2017 02/17/2022 Encounters Date Type Department Care Team Description 12/09/2024 Telephone [facility] Cardiology at [address] [phone] Chandan Diggs MD 12/05/2024 10:30 AM CDT Office Visit [facility] Cardiology at [address] [phone] Chandan Diggs MD Permanent atrial fibrillation (HCC) [...] on file 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 Gender Identity Not on file Sexual Orientation Not on file Obstetrics History Last Filed Vital Signs Vital Sign Reading Time Taken Comments Blood Pressure 134/82 12/05/2024 10:30 AM CDT Pulse 54 12/05/2024 10:30 AM CDT Temperature - - Respiratory Rate - - Oxygen Saturation 98% 12/05/2024 10: 30 AM CDT Inhaled Oxygen Concentration - - Weight 95.6 kg (210 lb 12.8 oz) 025 10:30 AM CDT Height 152.4 cm (5') 12/05/2024 10:30 AM CDT Body Mass Index 41.17 12/05/2024 10:30 AM CDT Plan of Treatment Health Maintenance Due Date Last Done Comments Depression Screening 1940 Fall Risk Assessment 1940 Osteoporosis Screening-Bone Density Scan 1940 Hepatitis B Screening 02/21/1958 Well Visit 65+ 02/21/2005 Zoster Vaccine (3 of 3) 05/26/2020 03/31/20 20, 11/26/2019, 03/16/2012 Influenza Vaccine (#1) 2024 2, 01/24/2020, 02/06/2019, Additional history exists DTaP/Tdap/Td Vaccine (3 - Td or Tdap) 01/17/2034 01/18/2024, 04/17/1987 Pneumococcal vaccine 65+ Completed 01/26/2016, 02/15 Insurance [facility] MEDICARE ADVANTAGE [facility] Address: [facility] [address] [place] [address] [facility] MEDICARE ADVANTAGE [facility] Address: [facility] [address] [place] [address] Care Teams Final Expense Agent Relationship Specialty Start Date End Date Gisselle Noel MD PCP - General 02/16/16
[2024-12-24 08:03] LABS: Hemoglobin A1C 5.9 % (<5.7)
[2024-12-24 08:07] LABS: Alanine Aminotransferase 19 U/L (6-35); Albumin Level 4.4 g/dL (3.5-5.1); Alkaline Phosphatase 73 U/L (38-126); Anion Gap 8 mmol/L (4-12); Aspartate Amino Transferase 28 U/L (14-36); Bilirubin,Total 1.3 mg/dL (0.2-1.3); Blood Urea Nitrogen 18 mg/dL (7-17); Calcium 10.1 mg/dL (8.4-10.2); Carbon Dioxide 31 mmol/L (22-30); Chloride 102 mmol/L (98-107); Cholesterol 192 mg/dL (0-200); Estimated Glomerular Filt Rate 52; Glucose 133 mg/dL (65-110); HDL Direct 51 mg/dL; Osmolality Calculated 295 mOsm/kg (285-295); Potassium 5.2 mmol/L (3.4-5.0); Sodium 141 mmol/L (137-145); Total Protein 7.2 g/dL (6.3-8.2); Triglycerides 204 mg/dL (<150)
[2024-12-24 08:07] LABS: MALB Creatinine Ratio 62.5 mg/g (0-30)
[2024-12-24 08:38] LABS: Thyroid Stimulating Hormone Reflex 4.000 uIU/mL (0.465-4.68)
[2024-12-24 09:07] LABS: Free T4 Free Thyroxine Reflex 1.35 ng/dL (0.78-2.19)
[2024-12-24 09:44] LABS: Add Urine Microscopic? NO; Appearance Urine Clear (Clear); Glucose Urine UA Negative (Negative); Leukocyte Esterase Ur Negative LEU/UL (Negative); Nitrate Urine Negative (Negative); Specific Grav Ur <= 1.005 (1.010-1.020)
== END 2024-12-24 07:25 | disposition home or self-care (01) ==
LOC: CHSLAB 07:25
PROVIDERS: PCP Family Medicine; Visit Provider Family Medicine
DX: E03.9 Hypothyroidism, unspecified (principal); R53.83 Other fatigue; E11.9 Type 2 diabetes mellitus without complications; E78.2 Mixed hyperlipidemia; R35.0 Frequency of micturition
CPT/HCPCS: 36415; 80053; 80061; 81003; 82043; 83036; 84439; 84443; 85027

== ENCOUNTER 2024-12-25 15:18 | Outpatient (CLI) | payer MEDICARE, SELFPAY ==
--- OUTSIDE RECORDS SUMMARY | 2024-12-25 15:42 | XMS_ITS | Clinical Summary ---
Author Organization [facility] [address] [facility] [address] [facility] [address] [place] [address] Care Team Providers Care Automobile Body Repairer Name Role Phone Gisselle Noel MD Primary Care Provider [phone] Allergies Active Allergy Reactions Criticality Noted Date [...] (COZAAR) 50 mg tablet 0 Active vitamin V79-mkfyl acid 0.5-1 mg tablet Take by mouth [...] (10 mg) by mouth daily 4 Active Eliquis 5 mg tablet TAKE 1 TABLET BY MOUTH TWICE DAILY 200 tablet 2 5 Active metoprolol XL (TOPROL-XL) 50 mg extended release tablet TAKE 1 TABLET BY MOUTH DAILY 100 tablet 2 5 Active metoprolol XL (TOPROL-XL) 50 mg extended release tablet TAKE 1 TABLET BY MOUTH DAILY 100 tablet 2 5 12/25/19 25 Discontinued Active Problems Problem Noted Date Diagnosed Date Permanent atrial fibrillation 02/17/2022 Resolved Problems Problem Noted Date Diagnosed Date Resolved Date Paroxysmal atrial fibrillation (CMS/HCC) 03/01/2017 02/17/2022 Encounters Date Type Department Care Team Description 12/09/2024 Telephone [facility] Cardiology at [address] [phone] Chandan Diggs MD 12/05/2024 10:30 AM CDT Office Visit [facility] Cardiology at [address] [phone] Chandan Diggs MD Permanent atrial fibrillation [...] on file 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
[2024-12-25 16:09] LABS: Anion Gap 11 mmol/L (4-12); Blood Urea Nitrogen 20 mg/dL (7-17); Calcium 10.0 mg/dL (8.4-10.2); Carbon Dioxide 27 mmol/L (22-30); Chloride 102 mmol/L (98-107); Estimated Glomerular Filt Rate 50; Glucose 186 mg/dL (65-110); Osmolality Calculated 297 mOsm/kg (285-295); Potassium 4.8 mmol/L (3.4-5.0); Sodium 140 mmol/L (137-145)
== END 2024-12-25 15:19 | disposition home or self-care (01) ==
LOC: CHSLAB 15:19
PROVIDERS: PCP Student in an Organized Health Care Education/Training Program; Visit Provider Student in an Organized Health Care Education/Training Program
DX: E87.5 Hyperkalemia (principal)
CPT/HCPCS: 36415; 80048

== ENCOUNTER 2025-01-22 14:52 | Outpatient (CLI) | payer MEDICARE, SELFPAY ==
--- NOTE | ~2025-01-22 | XR_ITS ---
EXAMINATION: XR chest 2V, 01/22/2025 15:00 CDT HISTORY: R06.00 - Dyspnea, unspecified FRONTAL CHEST WALL DISCOMFORT COMPARISON: No comparisons available. Technique: 2 views obtained. Findings: The lungs are clear, no effusion. No pneumothorax. Heart is normal size. Mediastinal and hilar contours are within normal limits. Bony thorax no acute abnormality. Impression: No acute cardiopulmonary abnormality. Reviewed, dictated and finalized at location P. Impression: No acute cardiopulmonary abnormality.
== END 2025-01-22 14:53 | disposition home or self-care (01) ==
PROVIDERS: PCP Student in an Organized Health Care Education/Training Program; Visit Provider Student in an Organized Health Care Education/Training Program
DX: R06.00 Dyspnea, unspecified (principal)
CPT/HCPCS: 71046

== ENCOUNTER 2025-02-21 10:56 | Observation (INO) | payer MEDICARE, SELFPAY ==
[2025-02-21] VITALS (17 sets, daily range): BP systolic 145–178; BP diastolic 57–95; PULSE 71–92; RESP 15–24; TEMP 36.1–36.7; O2SAT 93–100; BMI 40.1
--- NOTE | ~2025-02-21 | US_ITS ---
EXAMINATION: US venous doppler LE , 02/21/2025 16:00 INSURANCE EXAMINER HISTORY: L > R edema Comparison: None Technique: Barney-scale and color Doppler images were attempted of the lower saphenofemoral junction, common femoral vein,superficial femoral vein, proximal deep femoral vein, proximal deep femoral vein, popliteal vein and posterior tibial veins. Findings: Deep Venous System:Normal flow, augmentation and compressibility. No echogenic thrombus identified. The contralateral saphenofemoral junction appears unremarkable. Superficial Venous SystemNo superficial thrombophlebitis. Soft tissues: Soft tissues are unremarkable. Impression: Negative for DVT. Reviewed, dictated and finalized at location P. RANCE EXAMINER Impression: Negative for DVT.
--- NOTE | ~2025-02-21 | CT_ITS ---
EXAMINATION: CTA chest PE abdomen pel DATE: 02/21/2025 17:11 VASCULAR TECHNOLOGIST SONOGRAPHER INDICATION: Shortness of breath. TECHNIQUE: Computed tomographic angiography (CTA) of the chest, abdomen, and pelvis was performed without and with 100 mL Omnipaque-350 intravenous contrast. The dose-length product was 1783.47 mGy-cm. Maximum intensity projection 3D- reconstructions of the aorta and other arteries were constructed by the technologist on a separate workstation. COMPARISON: CT dated 2016 an chest x-ray dated 02/21/2025 FINDINGS: CHEST CTA: Small pleural effusions. Mildly prominent pulmonary arteries. No filling defects are identified to suggest pulmonary embolism. Cardiomegaly. There is mediastinal lymphadenopathy which has developed since prior study, likely reactive. Extensive less opacification with interlobular septal thickening, consistent with pulmonary edema. Dependent atelectasis. ABDOMEN AND PELVIS CTA: The liver, pancreas, adrenal glands and kidneys are unremarkable. There is capsular calcification of the spleen laterally, likely related to old hemorrhage. Mild atherosclerosis of the aorta without aneurysm. No lymphadenopathy. Colonic diverticulosis without evidence for diverticulitis. Gallbladder not identified, likely surgically absent. There is sacroiliitis. Mild thoracic spondylosis. Chronic T12 compression fracture treated with vertebroplasty. IMPRESSION: 1. Cardiomegaly with mild pulmonary edema. 2: Mediastinal lymphadenopathy, likely reactive. 3: Small pleural effusions. Reviewed, dictated and finalized at location O. ULAR TECHNOLOGIST SONOGRAPHER
--- NOTE | ~2025-02-21 | XR_ITS ---
EXAMINATION: XR chest 2V, 02/21/2025 12:10 COMMUNICATION PROFESSOR HISTORY: SHORT OF BREATH COMPARISON: No comparisons available. Technique: 2 views obtained. Findings: Mild pulmonary venous congestion. No pneumothorax. Mild cardiomegaly. Mediastinal and hilar contours are within normal limits. Bony thorax no acute abnormality. Impression: Mild CHF Reviewed, dictated and finalized at location P. UNICATION PROFESSOR Impression: Mild CHF
--- NOTE | 2025-02-21 11:23 | ECG_ITS ---
Test Date: 2025-02-21 11:25:44 Measurements Intervals [place] Rate: 78 P: 0 SD: 0 QRS: 257 QRSD: 144 T: 77 QT: 435 QTc: 496 Interpretive Statements ATRIAL FIBRILLATION WITH ABERRANT CONDUCTION OR VENTRICULAR PREMATURE INTRAVENTRICULAR CONDUCTION DELAY Electronically Signed On 02-21-2025 12:43:46 FACILITIES MAINTENANCE WORKER by Dyllan Davis D.O
--- OUTSIDE RECORDS SUMMARY | 2025-02-21 11:41 | XMS_ITS | Clinical Summary ---
Author Organization [facility] [address] [facility] [address] [facility] [address] [place] [address] Care Team Providers Care Well Blower Name Role Phone Gisselle Noel MD Primary Care Provider [phone] Allergies Active Allergy Reactions Criticality Noted Date [...] (COZAAR) 50 mg tablet 10/18/2019 Active vitamin U97-qxsrg acid 0.5-1 mg tablet Take by mouth [...] (10 mg) by mouth daily 10/31/2023 Active Eliquis 5 mg tablet TAKE 1 TABLET BY MOUTH TWICE DAILY 200 tablet 2 09/23/2024 Active metoprolol XL (TOPROL-XL) 50 mg extended release tablet TAKE 1 TABLET BY MOUTH DAILY 100 tablet 2 12/24/2024 Active Active Problems Problem Noted Date Diagnosed Date Permanent atrial fibrillation 02/17/2022 Resolved Problems Problem Noted Date Diagnosed Date Resolved Date Paroxysmal atrial fibrillation (CMS/HCC) 03/01/2017 02/17/2022 Encounters Date Type Department Care Team Description 12/09/2024 Telephone [facility] Cardiology at [address] [phone] Chandan Diggs MD 12/05/2024 10:30 AM CDT Office Visit [facility] Cardiology at [address] [phone] Chandan Diggs MD Permanent atrial fibrillation (HCC) [...] on file 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
[2025-02-21 12:01] LABS: Hematocrit 30.8 % (37.0-47.0); Hemoglobin 10.0 g/dL (12.0-15.0); Immature Granulocyte Percent A 0.5 % (0-0.5); Lymphocytes Absolute Auto 1.05 K/mm3 (0.9-3.2); Mean Corpuscular HGB Conc 32.5 g/dl (32-36); Mean Corpuscular Hemoglobin 29.6 pg (26-34); Mean Corpuscular Volume 91.1 fl (80-100); Nucleated Red Blood Cells Absolute Auto 0.000 K/mm3 (0.0-0.012); Nucleated Red Blood Cells Perc 0.0 % (0.0-0.2); Platelet Count Result 284 k/mm3 (150-375); Red Blood Count 3.38 M/mm3 (4.2-5.4); White Blood Count 7.7 K/mm3 (4.5-10.0)
[2025-02-21 12:17] LABS: Alanine Aminotransferase 20 U/L (6-35); Albumin Level 3.8 g/dL (3.5-5.1); Alkaline Phosphatase 70 U/L (38-126); Anion Gap 7 mmol/L (4-12); Aspartate Amino Transferase 28 U/L (14-36); Bilirubin,Total 1.1 mg/dL (0.2-1.3); Blood Urea Nitrogen 17 mg/dL (7-17); Calcium 9.2 mg/dL (8.4-10.2); Carbon Dioxide 25 mmol/L (22-30); Chloride 101 mmol/L (98-107); Estimated CRCL calculation 39 ml/min; Estimated Glomerular Filt Rate 56; Glucose 110 mg/dL (65-110); Potassium 4.0 mmol/L (3.4-5.0); Sodium 133 mmol/L (137-145); Total Protein 7.1 g/dL (6.3-8.2)
[2025-02-21 12:25] LABS: Troponin I 0.028 ng/mL (0.000-0.034)
--- OUTSIDE RECORDS SUMMARY | 2025-02-21 14:32 | XMS_ITS | Clinical Summary ---
Author Organization [facility] [address] [facility] [address] [facility] [address] [place] [address] Care Team Providers Care Html Web Developer Name Role Phone Gisselle Noel MD Primary Care Provider [phone] Allergies Active Allergy Reactions Criticality Noted Date [...] (COZAAR) 50 mg tablet 10/18/2019 Active vitamin A61-thxie acid 0.5-1 mg tablet Take by mouth [...] Type Department Care Team Description 12/09/2024 Telephone [facility] Cardiology at [address] [phone] Chandan Diggs MD 12/05/2024 10:30 AM CDT Office Visit [facility] Cardiology at [address] [phone] Chandan Diggs MD Permanent atrial fibrillation (HCC) [...] on file 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
--- NOTE | 2025-02-21 14:47 | ED.SOB ---
HPI - SOB/Dyspnea General Chief Complaint: Shortness of Breath/Dyspnea Stated Complaint: SHORTNESS OF BREATH Time Seen by Provider: 02/21/25 14:28 Source: patient and family (daughter Gala) Mode of arrival: ambulatory Limitations: no limitations History of Present Illness HPI Narrative: Patient presents with report of shortness of breath as well as chest pain although she describes it more as an ache. Symptoms started 10 days ago. She reports having history of dyspnea but she has started developing symptoms worse when taking deep breath and that is new, has never happened before. Patient reports receiving her COVID shot just over 1 week ago. She denies any lower extremity edema that she knows of. She had an echo earlier this week and Dr. Diggs's office and was supposed to have a follow-up appointment to review the results of this today but was unable to go. She is on apixaban history atrial fibrillation; denies missing doses. She does not smoke. Denies any cough. Has an underlying history asthma. Was supposed to see her corporate counsel in April but got appointment moved up to March. PCP had been Dr Noel, currently with [facility] until new doctor starts. Needs a refill of her albuterol inhaler. She is also on allergy medication, hypertension medication, hyperlipidemia medication, and thyroid medication. Also antacid and gabapentin QHS. Sees Dr Peterson for orthopedics Related Data Home Medications ?Medication ?Instructions ?Recorded ?Confirmed ?Last Taken ?Type apixaban 5 mg tablet (Eliquis) 5 mg PO BID 03/06/19 01/22/25 Unknown History cetirizine 10 mg tablet (24Hour 5 mg PO DAILY PRN 05/17/19 01/22/25 Unknown History Allergy) metoprolol succinate 50 mg 50 mg PO DAILY 03/20/20 01/22/25 Unknown History tablet,extended release 24 hr cyanocobalamin (vitamin B-12) 1,000 mcg PO .qod 08/12/20 01/22/25 Unknown History 1,000 mcg capsule glucosamine 750 bq-uithxjhqqcs-tvj tablet PO BID 09/09/20 01/22/25 Unknown History no1 625 mg-C 30 mg-nessa 1 mg tablet (Zoezlzfbgtw-Pkqalwmmbyn-QPC) magnesium 250 mg tablet 125 mg PO WEEKLY 02/16/21 01/22/25 Unknown History Co Q10 PO 09/25/24 01/22/25 Unknown History ascorbic acid (vitamin C) 500 mg 500 mg PO DAILY 09/25/24 01/22/25 Unknown History tablet calcium PO 09/25/24 01/22/25 Unknown History multivitamin (Daily Multi-Vitamin 1 tablet PO DAILY 09/25/24 01/22/25 Unknown History tablet) omega-3 fatty acids 1,000 mg 4,000 mg PO DAILY 01/22/25 01/22/25 Unknown History capsule (Fish Oil Concentrate) Allergies Allergy/AdvReac Type Severity Reaction Status Date / Time adhesive Allergy Severe BANDAIDS= Verified 02/21/25 10:57 RASH cefaclor Allergy Unknown Rash Verified 02/21/25 10:57 clarithromycin Allergy Unknown unknown Verified 02/21/25 10:57 fexofenadine Allergy Unknown unknown Verified 02/21/25 10:57 levofloxacin Allergy Unknown unknown Verified 02/21/25 10:57 pseudoephedrine Allergy Unknown unknown Verified 02/21/25 10:57 rivaroxaban Allergy Unknown unknown Verified 02/21/25 10:57 PMFSH Past Medical History Medical History Paroxysmal atrial fibrillation Wheezing Vitamin D deficiency Viral syndrome Wedge compression fracture of fifth lumbar vertebra, sequela Upper back pain on right side Unspecified asthma, uncomplicated Stasis dermatitis of both legs Skin tag Seborrhea Seasonal allergic rhinitis Screening mammogram, encounter for Scalp irritation Right wrist pain Psoriasis Prediabetes Post herpetic neuralgia Pneumonia of left lower lobe due to infectious organism Peripheral neuropathy, idiopathic Pain of left calf Other rosacea Other constipation Other chronic pain Neck pain on right side Muscle strain Mixed hyperlipidemia Mild intermittent asthma without complication Mild intermittent asthma with acute exacerbation Mild asthma Lower respiratory tract infection Localized edema Leg cramps Impaired glucose tolerance (oral) (12/27/16) Hypokalemia Hypersomnolence Hx of half-way use of blood thinners Herpes zoster without complication Hemorrhoids Hematochezia Gastroesophageal reflux disease without esophagitis Gastroenteritis Flu vaccine need Fatigue Essential (primary) hypertension Epigastric abdominal pain Disorder of thyroid, unspecified Dehydration Decreased sense of smell Clavicle pain Chronic sinusitis, unspecified Chronic right-sided low back pain with right-sided sciatica Chronic rhinitis Chronic pain of left ankle Chronic cough Chronic bilateral low back pain without sciatica Body mass index [BMI] 37.0-37.9, adult (07/18/17) Body mass index [BMI] 36.0-36.9, adult (03/15/18) Body mass index [BMI] 35.0-35.9, adult (01/24/17) Atypical chest pain Atopic dermatitis, unspecified Asthma exacerbation Adverse effect of other opioids, initial encounter Acute serous otitis media of left ear Acute non-recurrent sinusitis Acute bronchitis due to other specified organisms Lumbar disc disease Colon cancer screening (~08/2017) Repeat in 5 years, [place] Chronic renal insufficiency, stage III (moderate) Obstructive sleep apnea Rosacea Vitamin B12 deficiency Atrial fibrillation Asthma Hypothyroidism HLD (hyperlipidemia) Surgical History Surgical History History of left knee replacement History of cholecystectomy History of total right knee replacement Family History Family History Mother Family history of diabetes mellitus in first degree relative Cerebrovascular accident Mother Diabetes mellitus Grandparent Cerebrovascular accident Social History Social History Second hand tobacco smoke exposure: No Alcohol intake: never Substance use: never Substance use type: does not use Do You Feel Safe in your Home?: Yes Lack of Transportation: No Lack of Food: Never True Current Housing: I Have Housing Concerned About Future Housing: No Difficulty Paying Gas/Electric Bills: No Difficulty Paying for Meds: No Currently Unemployed: No Education: High School Diploma/GED Difficulty w/ Childcare or Family Care: No Living arrangements: with family Additional living arrangements comments: LIVES WITH SON Occupation/Education: retired Gender identity (if verbalized by the patient): Female Sexual Orientation (if Verbalized by the Patient): Straight or Heterosexual Spiritual care concerns: No Agree to blood products: Yes Exam Narrative: GENERAL: Well-appearing, well-nourished, and in no acute distress. HEAD: Normocephalic, atraumatic. EYES: Non injected, non icteric ENT: Nares clear, no rhinorrhea or epistaxis. Gross auditory acuity intact. NECK: Supple. No meningismus. CHEST: Speaking in full sentences. No respiratory distress. Bilateral expiratory wheezes. HEART: IRRegularly IRRegular rate and rhythm. . ABDOMEN: Soft, nondistended. No rigidity or guarding. Not peritoneal JESS: Performed with RN present as shoe repairman/preschool assistant teacher. Normal rectal tone. No palpable masses. Appropriate colored stool on gloved lubricated finger; guiaic/FOBT negative. EXTREMITIES: Normal range of motion. 2+ left lower extremity edema. Trace right lower extremity edema SKIN: Warm, dry, no rash. NEURO: No focal deficits. Alert and oriented. Answering questions. Following commands. Normal speech without aphasia or dysarthria. PSYCH: Normal mood and affect. Course Vital Signs Vital signs: Vital Signs Temperature 98.1 F 02/21/25 11:15 Pulse Rate 79 02/21/25 11:15 Respiratory Rate 16 02/21/25 11:15 Blood Pressure 160/73 H 02/21/25 11:15 Pulse Oximetry 100 02/21/25 11:15 Temperature 98.1 F 02/21/25 11:15 Pulse Rate 87 02/21/25 17:18 Respiratory Rate 24 H 02/21/25 17:18 Blood Pressure 145/86 H 02/21/25 17:18 Pulse Oximetry 93 02/21/25 18:45 Oxygen Delivery Room Air 02/21/25 13:30 MDM - SOB/Dyspnea MDM Narrative Medical decision making narrative: Patient presents with report of shortness of breath as well as a chest pain which he describes as an ache. Symptoms started 10 days ago. She notes that she has a history of dyspnea but her symptoms are worse with deep breath now and that is new. She denies any subjective edema but does have 2+ edema on the left and trace on the right. History of asthma. In the emergency department she is afebrile with vital signs notable for hypertension. She does have wheezes on examination and while this may be contributing, I suspect possible other concomitant issues. DuoNeb ordered. CHF noted on chest x-ray. She reports this would be a new diagnosis. Patient will require CT but pending at this time given unilateral leg swelling in regards to CT versus CTA PE study. Initial troponin technically within normal limits although high normal. Will obtain 3hr. ASA had been ordered but patient declined. Normocytic anemia which is more than 2 g drop from previous. However, denies any obvious blood loss. Possible apixaban effect. JESS without positive FOBT. Acute hyponatremia, a 7 mEq drop from previous. BNP > 2000. Patient has extensive PMH list in EMR though I don't see record of heart failure. Previous <500. Will order small dose Lasix. Repeat trop essentially unchanged. When patient is reassessed, she notes that her breathing is improved. This is before she has received her Lasix. She notes that with a breathing treatment seemed to have helped and on auscultation her lungs are now clear. CT as below. Although she remains hemodynamically stable and not requiring oxygen, I do believe she would benefit from further workup of the new onset heart failure. We discussed the risks and benefits of admission versus discharge as being admitted had allows the opportunity for this workup to be completed in a more expedited manner including but not limited to echo. Also for continued diuresis and consideration of home going meds/disease goal directed therapy, etc. Patient amenable. Her other daughter has arrived and is in agreement. Patient wishes to be full code in the event of cardiopulmonary arrest. She states her family is aware that if she were to remain on mechanical ventilation for more than a few days beyond this, she would not want that but would want the attempt to be made. Inquires about her home CPAP; ordered for RT. Echo ordered. Discussed with sex offender treatment professional hospitalist Leia LAZAR who accepts admission. Med surg with telemetry for new onset heart failure with pulmonary edema. Differential Diagnosis Differential diagnosis: Likely congestive heart failure, community acquired pneumonia, asthma with exacerbation, pulmonary embolism and other (DVT; ACS; valvular pathology; pulmonary hypertension; acute viral syndrome) Lab Data Attestation: I reviewed the patient's lab results. 02/21/25 11:43 02/21/25 11:43 Labs: Lab Results 02/21/25 02/21/25 02/21/25 Range/Units 11:43 15:28 15:28 WBC 7.7 (4.5-10.0) K/mm3 RBC 3.38 L (4.2-5.4) M/mm3 Hgb 10.0 L (12.0-15.0) g/dL Hct 30.8 L (37.0-47.0) % MCV 91.1 (80-100) fl MCH 29.6 (26-34) pg MCHC 32.5 (32-36) g/dl RDW 14.0 (11.5-14.5) % Plt Count 284 (150-375) k/mm3 MPV 8.8 (7.4-10.4) fl Immature Gran % (Auto) 0.5 (0-0.5) % Neut % (Auto) 77.7 H (45.5-73.1) % Lymph % (Auto) 13.6 L (18.3-44.2) % [place] % (Auto) 6.9 (2.6-8.5) % Eos % (Auto) 0.9 (0-4.4) % Baso % (Auto) 0.4 (0.2-1.2) % Lymph # (Auto) 1.05 (0.9-3.2) K/mm3 [place] # (Auto) 0.5 (0.1-0.6) K/mm3 Eos # (Auto) 0.1 (0-0.3) K/mm3 Baso # (Auto) 0.0 (0.0-0.1) K/mm3 Abs Immat Gran (auto) 0.04 H (0.00-0.031) K/mm3 Absolute Neuts (auto) 6.0 (1.3-6.7) K/mm3 Absolute Nucleated RBC 0.000 (0.0-0.012) K/mm3 Nucleated RBC % 0.0 (0.0-0.2) % D-Dimer 0.95 H (<0.48) ug/mL Sodium 133 L (137-145) mmol/L Potassium 4.0 (3.4-5.0) mmol/L Chloride 101 (98-107) mmol/L Carbon Dioxide 25 (22-30) mmol/L Anion Gap 7 (4-12) mmol/L BUN 17 (7-17) mg/dL Creatinine 0.95 (0.7-1.0) mg/dL Estim Creat Clear Calc 39 ml/min Estimated GFR 56 L (59 - ) Glucose 110 (65-110) mg/dL Calcium 9.2 (8.4-10.2) mg/dL Total Bilirubin 1.1 (0.2-1.3) mg/dL AST 28 (14-36) U/L ALT 20 (6-35) U/L Alkaline Phosphatase 70 (38-126) U/L Troponin I 0.028 0.026 (0.000-0.034) ng/mL NT-Pro-B Natriuret Pep 2120 H Cancelled 2120 H (19.9-100) pg/mL Total Protein 7.1 (6.3-8.2) g/dL Albumin 3.8 (3.5-5.1) g/dL Urine Color Yellow (Yellow) Urine Appearance Clear (Clear) Urine pH 7.0 (5.0-9.0) Ur Specific [place] 1.007 (1.001-1.035) Urine Protein Negative (Negative) mg/dL Urine Glucose (UA) Negative (Negative) mg/dL Urine Ketones Negative (Negative) mg/dL Ur Blood (Man) Negative (Negative) Urine Nitrate Negative (Negative) Urine Bilirubin Negative (Negative) Urine Urobilinogen 0.2 (<2.0) mg/dL Leukocyte Esterase Rfl Negative (Negative) SURINDER/UL Influenza A (RT-PCR) Negative (Negative) Influenza B (RT-PCR) Negative (Negative) RSV (RT-PCR) Negative (Negative) SARS-CoV-2 RNA (RT-PCR) Negative (Negative) Imaging Data Radiologist's impression: Impressions Chest X-Ray 02/21/25 12:15 Impression: Mild CHF Venous Doppler Study 02/21/25 16:39 Impression: Negative for DVT. Chest/Abdomen/Pelvis CTA 02/21/25 17:11 IMPRESSION: 1. Cardiomegaly with mild pulmonary edema. 2: Mediastinal lymphadenopathy, likely reactive. 3: Small pleural effusions. ECG Data EKG #1: Attestation: I personally reviewed and interpreted this ECG as follows: ECG completion date: 02/21/25 ECG completion time: 11:25 Interpretation: Atrial fibrillation at a rate of 78 beats per minute. QRS 144. QT/QTC 435/496. Poor R-wave progression across the precordial leads. No T-wave inversions. There intraventricular conduction delay. Discharge Plan Discharge Clinical Impression: Shortness of breath, Wheeze, Acute anemia, Acute hyponatremia, Cardiomegaly, Pulmonary edema, Bilateral pleural effusion, Rate controlled atrial fibrillation Acute heart failure Qualifiers: Heart failure type: unspecified Qualified Code(s): I50.9 - Heart failure, unspecified Patient Disposition: Still a Patient Condition: Stable
[2025-02-21] MEDS: IPRATROPIUM 0.5 MG/ALBUTEROL SULFATE 2.5 MG (BASE) AMPUL.NEB 3 ML INHALATION (15:19)
[2025-02-21 15:37] LABS: NT Pro B Type Natriuretic Pept 2120 pg/mL (19.9-100)
--- NOTE | 2025-02-21 15:40 | PC.NURSE ---
Pt refused prescribed asa and she states she only takes tylenol. Provider made aware.
[2025-02-21 15:41] LABS: Add Urine Microscopic? NO; Appearance Urine Clear (Clear); Glucose Urine UA Negative (Negative); Leukocyte Esterase Ur Negative LEU/UL (Negative); Nitrate Urine Negative (Negative); Specific Grav Ur 1.007 (1.001-1.035)
[2025-02-21] MEDS: ACETAMINOPHEN 500 MG TABLET 1000 MG PO (15:46)
[2025-02-21 16:36] LABS: NT Pro B Type Natriuretic Pept 2120 pg/mL (19.9-100); Troponin I 0.026 ng/mL (0.000-0.034)
[2025-02-21 16:44] LABS: Influenza A QL RT-PCR Negative (Negative); Influenza B QL RT-PCR Negative (Negative); RSV RNA, RT-PCR Negative (Negative); SARS-CoV-2 RNA PCR Negative (Negative)
[2025-02-21] MEDS: FUROSEMIDE INJ 40 MG/4 ML VIAL 20 MG IV PUSH (16:44)
--- NOTE | 2025-02-21 20:16 | PM.IMHP ---
H&P: HPI History of Present Illness Date/Time: 02/21/25 23:16 Chief Complaint: She knee shortness of breath, chest pain with deep breathing Narrative: 85-year-old female with a past medical history of COPD/emphysema, mycobacterium avium complex, severe pulmonary hypertension, moderate tricuspid and pulmonic regurgitation, paroxysmal atrial fibrillation on chronic anticoagulation with Eliquis, hypothyroidism and GERD among other comorbidities who presented to the ER with 10 days of pleuritic chest pain. She reports that she has a ache in her chest when she takes a deep breath and is burning in nature. She stated that it started she about the time she got her COVID vaccine. . She denies any fevers or chills. She has not had any recent ill contacts. She has chronic dyspnea on exertion that is been getting worse recently. She had a outpatient echocardiogram at Dr. Diggs is office last week and was supposed to have a follow-up appointment today to go over the results but was unable to go. She reports that she cannot walk across the room without severe shortness of breath. She denies any palpitations. She is on chronic anticoagulation with Eliquis and has not missed any doses. She denies any wheezing. She reports that she needs a refill on her albuterol inhaler. She states that her symptoms have improved after she received Lasix and albuterol. Review of Systems Review of Systems: 12 systems were reviewed with pertinent positives and negatives per HPI. Except as documented in the HPI, all other systems were reviewed and are negative. [facility] Past Medical History Medical History (Updated 02/21/25 @ 21:57 by Adele Goldman DO) Valvular heart disease Moderate tricuspid and pulmonic regurgitation, mild aortic stenosis Aortic stenosis Osteoporosis Severe pulmonary hypertension Echocardiogram March 2023: Mild LVH, indeterminate diastolic function, EF 50 55%, mild anterior septal hypo to akinesis, severe left atrial enlargement, moderate right atrial enlargement, mild aortic stenosis with valve area 1.94, severe pulmonary hypertension with RVSP of 65, moderate tricuspid and pulmonic regurgitation Polymyalgia rheumatica Obesity, Class III, BMI 40-49.9 (morbid obesity) CKD (chronic kidney disease) stage 3, GFR 30-59 ml/min Chronic anticoagulation Type 2 diabetes mellitus without complications (07/31/18) Hemoglobin A1c 12/2024 5.9% Vitamin D deficiency Wedge compression fracture of fifth lumbar vertebra, sequela Stasis dermatitis of both legs Skin tag Seborrhea Seasonal allergic rhinitis Psoriasis Post herpetic neuralgia Pneumonia of left lower lobe due to infectious organism Peripheral neuropathy, idiopathic Other constipation Mixed hyperlipidemia Mild intermittent asthma without complication Hemorrhoids Gastroesophageal reflux disease without esophagitis Essential (primary) hypertension Decreased sense of smell Chronic sinusitis, unspecified Chronic rhinitis Chronic pain of left ankle Chronic cough Chronic bilateral low back pain without sciatica Atopic dermatitis, unspecified Lumbar disc disease Colon cancer screening (~08/2017) Repeat in 5 years, [place] Obstructive sleep apnea Rosacea Vitamin B12 deficiency Atrial fibrillation (~2015) Chronic followed with Dr. Diggs Hypothyroidism TSH 12/2024 normal range Surgical History Surgical History (Updated 02/21/25 @ 21:43 by Adele Goldman DO) History of appendectomy Status post surgical removal of ganglion cyst Right wrist Status post cataract extraction of both eyes with insertion of intraocular lens History of colonoscopy with polypectomy (2017) With recommended follow-up in 5 years History of lumbar surgery (~2008) History of left knee replacement (08/2022) History of cholecystectomy History of total right knee replacement Family History Family History Mother Family history of diabetes mellitus in first degree relative Cerebrovascular accident Mother Diabetes mellitus Grandparent Cerebrovascular accident Social History Social History (Updated 02/22/25 @ 04:20 by Adele Goldman DO) Social History: She is . She has 1 son and 2 daughters who are twins. Her son lives with her. She is a lifelong nonsmoker and does not drink alcohol or use illicit substances. Code status: Full code (she would not want tracheostomy, long-term ventilator care or feeding tube) Surrogate decision maker: ?all of her children? Second hand tobacco smoke exposure: No Alcohol intake: never Substance use: never Substance use type: does not use Do You Feel Safe in your Home?: Yes Lack of Transportation: No Lack of Food: Never True Current Housing: I Have Housing Concerned About Future Housing: No Difficulty Paying Gas/Electric Bills: No Difficulty Paying for Meds: No Currently Unemployed: No Education: High School Diploma/GED Difficulty w/ Childcare or Family Care: No Living arrangements: with family Additional living arrangements comments: LIVES WITH SON Occupation/Education: retired Gender identity (if verbalized by the patient): Female Sexual Orientation (if Verbalized by the Patient): Straight or Heterosexual Spiritual care concerns: No Agree to blood products: Yes Meds Home Medications and Allergies Home Medications ?Medication ?Instructions ?Recorded ?Confirmed ?Type apixaban 5 mg tablet (Eliquis) 5 mg PO BID 03/06/19 02/21/25 History cetirizine 10 mg tablet (24Hour 5 mg PO DAILY PRN allergy symptoms 05/17/19 02/21/25 History Allergy) metoprolol succinate 50 mg 50 mg PO DAILY 03/20/20 02/21/25 History tablet,extended release 24 hr cyanocobalamin (vitamin B-12) 1,000 mcg PO .qod 08/12/20 02/21/25 History 1,000 mcg capsule glucosamine 750 ps-iyegimqpxue-ael 1 tablet PO BID 09/09/20 02/21/25 History no1 625 mg-C 30 mg-nessa 1 mg tablet (Dpoaboeoorq-Bgborctltgg-WQF) magnesium 250 mg tablet 125 mg PO WEEKLY 02/16/21 02/21/25 History losartan 50 mg tablet See Rx Instructions .Route 05/27/24 02/21/25 Rx .COMPLEX #100 tabs amlodipine 5 mg tablet See Rx Instructions .Route 06/15/24 02/21/25 Rx .COMPLEX #100 tabs Co Q10 See Rx Instructions PO .COMPLEX 09/25/24 02/21/25 History ascorbic acid (vitamin C) 500 mg 500 mg PO DAILY 09/25/24 02/21/25 History tablet calcium See Rx Instructions PO .COMPLEX 09/25/24 02/21/25 History multivitamin (Daily Multi-Vitamin 1 tablet PO DAILY 09/25/24 02/21/25 History tablet) montelukast 10 mg tablet 10 mg PO DAILY #30 tabs 12/24/24 02/21/25 Rx omega-3 fatty acids 1,000 mg 2,000 mg PO BID 01/22/25 02/21/25 History capsule (Fish Oil Concentrate) albuterol sulfate 90 mcg/actuation 1 - 2 inh inhalation Q4-6H PRN 02/21/25 02/21/25 Rx aerosol inhaler shortness of breath or wheezing #8.5 grams famotidine 40 mg tablet 40 mg PO HS 02/21/25 02/21/25 History gabapentin 300 mg capsule 600 mg PO .0900 & 1500 02/21/25 02/22/25 History lovastatin 10 mg tablet See Rx Instructions .Route .COMPLEX 02/21/25 02/21/25 History fluticasone furoate 200 1 inh inhalation Q24H 02/22/25 02/22/25 History mcg/actuation blister powder for inhalation (Arnuity Ellipta) gabapentin 300 mg capsule 900 mg PO HS 02/22/25 02/22/25 History levothyroxine 50 mcg capsule 50 mcg PO .Tu/Lisa/Sa/[place]aldron 02/22/25 02/22/25 History levothyroxine 50 mcg tablet 75 mcg PO .Mo/We/Fr 02/22/25 02/22/25 History Allergies Allergy/AdvReac Type Severity Reaction Status Date / Time adhesive Allergy Severe BANDAIDS= Verified 02/21/25 10:57 RASH cefaclor Allergy Unknown Rash Verified 02/21/25 10:57 clarithromycin Allergy Unknown unknown Verified 02/21/25 10:57 fexofenadine Allergy Unknown unknown Verified 02/21/25 10:57 levofloxacin Allergy Unknown unknown Verified 02/21/25 10:57 pseudoephedrine Allergy Unknown unknown Verified 02/21/25 10:57 rivaroxaban Allergy Unknown unknown Verified 02/21/25 10:57 Vital Signs Vital Signs - 24 hr 02/21/25 11:15 02/21/25 13:30 02/21/25 13:30 Temperature 98.1 F Pulse Rate 79 78 Respiratory Rate 16 19 Blood Pressure 160/73 H 175/95 H Pulse Oximetry 100 100 Oxygen Delivery Room Air Room Air 02/21/25 13:41 02/21/25 13:46 02/21/25 15:17 Temperature Pulse Rate 76 77 76 Respiratory Rate 17 16 17 Blood Pressure 175/95 H 163/81 H 163/71 H Pulse Oximetry 99 99 99 Oxygen Delivery 02/21/25 15:19 02/21/25 15:27 02/21/25 17:01 Temperature Pulse Rate 75 79 85 Respiratory Rate 16 20 15 Blood Pressure 147/66 H Pulse Oximetry 99 Oxygen Delivery 02/21/25 17:18 02/21/25 18:45 Temperature Pulse Rate 87 Respiratory Rate 24 H Blood Pressure 145/86 H Pulse Oximetry 93 Oxygen Delivery Exam Narrative: Weight 94.5 kg BMI 40.7 Const: Other: No acute distress obese, lying flat in bed HENMT: Other: Head is normocephalic atraumatic, mucous membranes are tacky, crowded posterior oropharynx, nasal CPAP in place Eyes: Other: Pupils are equal and reactive, positive conjunctival pallor, no scleral icterus Neck: Other: Short neck circumference, no obvious JVD, no lymphadenopathy Resp: Other: Crackles at the bases bilaterally, no wheezing, no increased work of breathing Cardio: Other: Regular rate, regular rhythm, 2/6 systolic murmur heard best at left upper sternal border, no JVD GI: Other: Obese, soft, nontender, normoactive bowel sounds Skin: Other: Generalized pallor, non jaundice Neuro: Other: Alert oriented x3, speech is clear, no facial asymmetry, no localizing neurologic deficits noted during the course of conversation Extrem: Other: No clubbing, no cyanosis, 1+ pitting edema left lower extremity Psych: Other: Appropriate mood and affect, pleasant mood and affect, judgment and insight intact H&P: Results Labs Labs: Laboratory Tests 02/21/25 11:43 02/21/25 11:43 02/21/25 02/21/25 02/21/25 11:43 15:28 15:28 WBC 7.7 RBC 3.38 L Hgb 10.0 L Hct 30.8 L MCV 91.1 MCH 29.6 MCHC 32.5 RDW 14.0 Plt Count 284 MPV 8.8 Immature Gran % (Auto) 0.5 Neut % (Auto) 77.7 H Lymph % (Auto) 13.6 L [place] % (Auto) 6.9 Eos % (Auto) 0.9 Baso % (Auto) 0.4 Lymph # (Auto) 1.05 [place] # (Auto) 0.5 Eos # (Auto) 0.1 Baso # (Auto) 0.0 Abs Immat Gran (auto) 0.04 H Absolute Neuts (auto) 6.0 Absolute Nucleated RBC 0.000 Nucleated RBC % 0.0 D-Dimer 0.95 H Sodium 133 L Potassium 4.0 Chloride 101 Carbon Dioxide 25 Anion Gap 7 BUN 17 Creatinine 0.95 Estim Creat Clear Calc 39 Estimated GFR 56 L Glucose 110 Calcium 9.2 Total Bilirubin 1.1 AST 28 ALT 20 Alkaline Phosphatase 70 Troponin I 0.028 0.026 NT-Pro-B Natriuret Pep 2120 H Cancelled 2120 H Total Protein 7.1 Albumin 3.8 Urine Color Yellow Urine Appearance Clear Urine pH 7.0 Ur Specific [place] 1.007 Urine Protein Negative Urine Glucose (UA) Negative Urine Ketones Negative Ur Blood (Man) Negative Urine Nitrate Negative Urine Bilirubin Negative Urine Urobilinogen 0.2 Leukocyte Esterase Rfl Negative Influenza A (RT-PCR) Negative Influenza B (RT-PCR) Negative RSV (RT-PCR) Negative SARS-CoV-2 RNA (RT-PCR) Negative Impressions Chest X-Ray 02/21/25 12:15 Impression: Mild CHF Venous Doppler Study 02/21/25 16:39 Impression: Negative for DVT. Chest/Abdomen/Pelvis CTA 02/21/25 17:11 IMPRESSION: 1. Cardiomegaly with mild pulmonary edema. 2: Mediastinal lymphadenopathy, likely reactive. 3: Small pleural effusions. EKG:Test Date: 2025-02-21 11:25:44 Measurements Intervals Zap Rate: 78 P: 0 OK: 0 QRS: 257 QRSD: 144 T: 77 QT: 435 QTc: 496 Interpretive Statements ATRIAL FIBRILLATION WITH ABERRANT CONDUCTION OR VENTRICULAR PREMATURE INTRAVENTRICULAR CONDUCTION DELAY Assessment and Plan Assessment and plan (1) Acute exacerbation of congestive heart failure: Qualifiers: Heart failure type: right-sided Qualified Code(s): I50.813 - Acute on chronic right heart failure Code(s): I50.9 - Heart failure, unspecified Status: Acute (2) Valvular heart disease: Code(s): I38 - Endocarditis, valve unspecified Status: Acute (3) Rate controlled atrial fibrillation: Code(s): I48.91 - Unspecified atrial fibrillation Status: Acute (4) Pulmonary edema: Qualifiers: Chronicity: acute Qualified Code(s): J81.0 - Acute pulmonary edema Code(s): J81.1 - Chronic pulmonary edema Status: Acute (5) Bilateral pleural effusion: Code(s): J90 - Pleural effusion, not elsewhere classified Status: Acute (6) QT prolongation: Code(s): R94.31 - Abnormal electrocardiogram [ECG] [EKG] Status: Acute (7) Hypertension: Qualifiers: Hypertension type: primary hypertension Qualified Code(s): I10 - Essential (primary) hypertension Code(s): I10 - Essential (primary) hypertension Status: Acute (8) Chronic anticoagulation: Code(s): Z79.01 - senior living (current) use of anticoagulants Status: Acute (9) Acute anemia: Code(s): D64.9 - Anemia, unspecified Status: Acute (10) Obstructive sleep apnea: Code(s): G47.33 - Obstructive sleep apnea (adult) (pediatric) Status: Acute (11) Acute hyponatremia: Code(s): E87.1 - Hypo-osmolality and hyponatremia Status: Acute (12) Hypothyroidism: Qualifiers: Hypothyroidism type: unspecified Qualified Code(s): E03.9 - Hypothyroidism, unspecified Code(s): E03.9 - Hypothyroidism, unspecified Status: Acute Plan Patient presents was pleuritic chest discomfort and evaluation demonstrates acute on chronic CHF exacerbation due to right-sided heart failure from pulmonary hypertension and valvular heart disease. Evidenced by bilateral pleural effusions and mild pulmonary edema on CTA. Patient did have an elevated D-dimer which is why CTA was performed. CTA ruled out pulmonary embolism. Patient was given 1 dose of IV Lasix 20 mg in the ER. Will start patient on IV Lasix 40 mg daily. Will monitor strict I&O's and daily weights. Will obtain echocardiogram to further evaluate patient's underlying cardiac structure and function as the last echo that I could see in our system was in 2022. Will continue patient's home cardiac medications including Eliquis. Patient does have AFib but is currently rate controlled. She does have some mild QT prolongation on EKG. Will continue monitor on telemetry and repeat EKG in a.m.. Will avoid further QT prolonging medications. The patient's CHF may also be exacerbated by her blood pressures in the setting of aortic valve disease. Blood pressures have been fluctuating between the 140s to 175 systolic range since arrival to the ER. Will resume home antihypertensives and monitor. Will add p.r.n. if hypertension persists. Will place patient on auto titrating BiPAP/CPAP at night to help reduce cardiac load given the patient morbid obesity and longstanding obstructive sleep apnea. Patient may also have of mild component of acute asthma exacerbation. Will place patient on scheduled albutero nebulizer treatments. Patient does have acute anemia in the setting of chronic B12 deficiency. However patient's anemia appears to be more microcytic in nature. Will check ferritin, reticulocyte count, stool occult blood and TIBC panel in a.m.. Will also check B12 and folic acid. Patient has some mild hyponatremia. Clinical significance is indeterminate. Possibly due to volume status. Will repeat electrolyte panel in a.m.. Patient has chronic hypothyroidism with recent outpatient TSH within normal limits. Will resume home levothyroxine. MEDICAL DECISION MAKING NARRATIVE -Spoke with the ED provider in detail regarding patient's evaluation, workup and management -Patient seen and examined at bedside -Collaborated with patient's nurse at the bedside in detail and addressed all concerns -Labs, electrolytes, radiology, investigations and test results personally reviewed and interpreted unless otherwise specified -ED/Consult/Nursing/Ancilliary notes on the chart reviewed and appreciated -Spoke with patient at bedside and diagnosis and plan of care was discussed. All questions answered. Quality VTE Prophylaxis VTE prophylaxis: pharmacologic ordered (Continue home Eliquis) Hospitalist MIPS Advance Care Plan I have confirmed that the patient's Advanced Care Plan is present, code status is documented, or surrogate decision maker is listed in patient medical record.: Yes Medication Reconciliation I have utilized all available resources to obtain, update and review the patients current medications (includes all prescriptions, OTC, herbals, cannabis, and nutritional supplements).: Yes
[2025-02-22] VITALS (17 sets, daily range): BP systolic 147–170; BP diastolic 62–83; PULSE 67–105; RESP 16–18; TEMP 36.4–36.5; O2SAT 94–99
--- NOTE | 2025-02-22 | ECHO_ITS ---
Patient Info Name: Shandra Myers Age: 85 years : 1940 Gender: Female Ht: 60 in Wt: 205 lbs BSA: 2.04 m2 HR: 85 bpm BP: 170 / 62 mmHg Heart Rhythm: Atrial Fibrillation Technical Quality: Fair Exam Date: 02/22/2025 9:41 AM Patient Status: I Admit Date: 02/21/2025 Exam Type: CA echo dop color flow w con Complete two-dimensional, color flow and Doppler transthoracic echocardiogram is performed with contrast to opacify the left ventricle and to improve the deliniation of the left ventricle endocardial borders. Staff Referring Physician: Britt Kc Professor Of Spanish: Greta Garcia Attending Provider: Billy Holden Oca Contrast/Agitated Saline Contrast/Ag. Saline: Definity Amount: 2.00 ml Administered By: Greta Garcia Existing IV Access: Yes IV Access Condition: patent with no signs of infiltration Summary 1. Left ventricular chamber dimension is normal. 2. Left ventricular systolic function is normal, estimated at 65-70. 3. There is no increased left ventricular wall thickness. 4. The left ventricular diastolic function is abnormal. 5. Left atrial chamber dimension is moderately enlarged. 6. Right atrial chamber dimension is moderately enlarged. 7. There is mild aortic valve calcification. 8. There is mild mitral valve regurgitation. 9. The mitral valve annulus is mildly calcified. 10. There is mild tricuspid valve regurgitation. 11. Moderate pulmonary hypertension, estimated pulmonary arterial systolic pressure is 54 mmHg. 12. There is mild pulmonic regurgitation. Left Ventricle Left ventricular chamber dimension is normal. Left ventricular systolic function is normal, estimated at 65-70. There is no increased left ventricular wall thickness. The left ventricular diastolic function is abnormal. Right Ventricle Right ventricular chamber dimension is normal. Right ventricular systolic function is normal. Left Atria Left atrial chamber dimension is moderately enlarged. Right Atria Right atrial chamber dimension is moderately enlarged. Atrial Septum Intact interatrial septum visualized by color flow imaging. Aortic Valve The aortic valve is trileaflet. There is no aortic valve stenosis. There is trace aortic valve regurgitation. There is mild aortic valve calcification. Pulmonic Valve The pulmonic valve is normal. There is no pulmonic valve stenosis. There is mild pulmonic regurgitation. Mitral Valve There is no mitral valve stenosis. There is mild mitral valve regurgitation. The mitral valve annulus is mildly calcified. Tricuspid Valve The tricuspid valve leaflets are normal. There is no significant tricuspid valve stenosis. There is mild tricuspid valve regurgitation. Moderate pulmonary hypertension, estimated pulmonary arterial systolic pressure is 54 mmHg. Pericardium/Pleural The pericardium appears epicardial fat pad. There is trivial pericardial effusion. Inferior Vena Cava Normal inferior vena cava with >50% collapse upon inspiration consistent with normal right atrial pressure, 10 mmHg. Aorta The aortic root size at the sinus of Valsalva is normal. Left Ventricular Outflow Tract Name Value Normal LVOT 2D LVOT Diameter 2.0 cm LVOT Doppler LVOT Peak Velocity 95 cm/s LVOT Peak Gradient 4 mmHg LVOT Mean Gradient 2 mmHg LVOT VTI 17 cm LVOT VTI/AV VTI Ratio 0.6 LVOT Stroke Volume 51 ml LVOT CO 4.2 l/min LVOT CI 2.1 l/min/m2 Pulmonic Valve Name Value Normal RVOT Doppler RVOT Peak Velocity 121 cm/s RVOT Peak Gradient 4 mmHg PV Doppler PV Peak Velocity 145 cm/s PV Peak Gradient 8 mmHg Mitral Valve Name Value Normal MV Diastolic Function MV E Peak Velocity 119 cm/s MV A Peak Velocity 1 cm/s MV E/A 82.4 MV Decel Time (PW) 156 ms MV Annular TDI MV E/e' (Septal) 15.4 MV E/e' (Lateral) 11.9 MV E/e' (Average) 13.7 Tricuspid Valve Name Value Normal TV Regurgitation Doppler TR Peak Velocity 332 cm/s TR Peak Gradient 41 mmHg Estimated PAP/RSVP RA Pressure 10 mmHg <=5 PA Systolic Pressure 54 mmHg <36 RV Systolic Pressure 54 mmHg <36 TV Annular TDI TV Lateral Hannah s' Velocity 6.7 cm/s >=9.5 Aorta Name Value Normal Ascending Aorta Ao Root Diameter (MM) 2.8 cm Ao Root Diam Index (MM) 1.4 cm/m2 Aortic Valve Name Value Normal AV Doppler AV Peak Velocity 181 cm/s AV Peak Gradient 13 mmHg AV Mean Gradient 6 mmHg AV VTI 30 cm AV Area (Cont Eq VTI) 1.7 cm2 >=3.0 AV Area (Cont Eq Deandre) 1.6 cm2 AV DI (Deandre) 0.53 AV Regurgitation 2D LVOT Area 3.0 cm2 Ventricles Name Value Normal LV Dimensions 2D/MM IVS Diastolic Thickness (2D) 0.9 cm 0.6-1.0 LVID Diastole (2D) 5.0 cm 3.8-5.2 LVIW Diastolic Thickness (2D) 0.9 cm 0.6-0.9 LVID Systole (2D) 3.2 cm 2.2-3.5 LVOT Diameter 2.0 cm LV Mass (2D Cubed) 163.03 g 67.00-162.00 LV Mass Index (2D Cubed) 80 g/m2 43-95 Relative Wall Thickness (2D) 0.36 <=0.42 LV Fractional Shortening/Ejection Fraction 2D/MM LV Fractional Shortening (2D) 35 % 27-45 LV EF (2D Teichholz) 64 % LV Diastolic Volume (4C MOD) 80 ml LV EF (4C MOD) 73 % LV Diastolic Volume (2C MOD) 58 ml LV EF (2C MOD) 68 % LV Diastolic Volume (BP MOD) 71 ml 46-106 LV Diastolic Volume Index (BP MOD) 35 ml/m2 29-61 LV Systolic Volume (BP MOD) 21 ml 14-42 LV Systolic Volume Index (BP MOD) 10 ml/m2 8-24 LV EF (BP MOD) 71 % 54-74 LV Diastolic Length (4C) 7.6 cm LV Systolic Length (4C) 6.1 cm LV Stroke Volume (4C MOD) 58 ml Atria Name Value Normal LA Dimensions LA Dimension (MM) 5.0 cm 2.7-3.8 LA Volume (4C A-L) 84 ml LA Volume (BP A-L) 114 ml RA Dimensions RA Area (4C) 25.3 cm2 <=18.0 Report Signatures
[2025-02-22 05:37] LABS: Hematocrit 30.9 % (37.0-47.0); Hemoglobin 10.0 g/dL (12.0-15.0); Immature Reticulocyte Fraction 25.3 % (3.0-15.9); Mean Corpuscular HGB Conc 32.4 g/dl (32-36); Mean Corpuscular Hemoglobin 29.9 pg (26-34); Mean Corpuscular Volume 92.2 fl (80-100); Platelet Count Result 274 k/mm3 (150-375); Red Blood Count 3.35 M/mm3 (4.2-5.4); Reticulocyte Hemoglobin Conten 30.2 pg (28.2-36.6); Reticulocytes Absolute 0.10 10^6/uL (0.02-0.10); White Blood Count 5.7 K/mm3 (4.5-10.0)
[2025-02-22 05:48] LABS: Iron 49 ug/dL (37-170)
[2025-02-22 05:58] LABS: Percent Iron Saturation 15 % (20-50)
[2025-02-22 05:59] LABS: Anion Gap 8 mmol/L (4-12); Blood Urea Nitrogen 16 mg/dL (7-17); Calcium 8.9 mg/dL (8.4-10.2); Carbon Dioxide 27 mmol/L (22-30); Chloride 102 mmol/L (98-107); Estimated CRCL calculation 39 ml/min; Estimated Glomerular Filt Rate 56; Glucose 111 mg/dL (65-110); Magnesium 2.1 mg/dL (1.6-2.3); Sodium 137 mmol/L (137-145)
[2025-02-22 06:07] LABS: Potassium 3.7 mmol/L (3.4-5.0)
[2025-02-22] MEDS: LEVOTHYROXINE SODIUM 50 MCG TABLET PO (06:13)
[2025-02-22 06:29] LABS: Ferritin 132.00 ng/mL (11.1-264)
--- NOTE | 2025-02-22 07:08 | P.PNIM_ITS ---
Progress Note: A&P Assessment and Plan (1) Acute exacerbation of congestive heart failure: Qualifiers: Heart failure type: right-sided Qualified Code(s): I50.813 - Acute on chronic right heart failure Code(s): I50.9 - Heart failure, unspecified Status: Acute Assessment and Plan: * Echocardiogram on 04/13/2023: Mild aortic stenosis, severe pulmonary hypertension, atrial fibrillation, severe enlargement of left atrium, moderate enlargement of right atrium, mitral valve leaflets mildly thickened * Monitor vital signs, I&Os, BUN/creatinine, daily weights, neuro status and patient is a fall risk * Monitor serum electrolytes, Keep serum Potassium>4 and serum Magnesium>2 and CBC * Obtain an Echocardiogram * Lasix 40 mg IV daily * Consult cardiology for further management, appreciate assistance and recommendations * Bilateral pleural effusions and mild pulmonary edema on CTA * CTA not indicative of PE (2) Rate controlled atrial fibrillation: Code(s): I48.91 - Unspecified atrial fibrillation Status: Acute Assessment and Plan: * Currently rate controlled * Keep serum potassium >4 and keep magnesium >2 * Echocardiogram ordered * Continue anticoagulation (3) Pulmonary edema: Qualifiers: Chronicity: acute Qualified Code(s): J81.0 - Acute pulmonary edema Code(s): J81.1 - Chronic pulmonary edema Status: Acute Assessment and Plan: * Likely secondary to underlying CHF exacerbation * Chest CTA: Cardiomegaly with mild pulmonary edema * Chest x-ray: Mild CHF * Continue IV Lasix * Monitor strict I&Os (4) Bilateral pleural effusion: Code(s): J90 - Pleural effusion, not elsewhere classified Status: Acute Assessment and Plan: * See above (5) QT prolongation: Code(s): R94.31 - Abnormal electrocardiogram [ECG] [EKG] Status: Acute Assessment and Plan: * EKG: QTc 496 * Repeat EKG 02/22: QTc 539 * Monitor on telemetry * Avoid further QT prolonging medications (6) Hypertension: Qualifiers: Hypertension type: primary hypertension Qualified Code(s): I10 - Essential (primary) hypertension Code(s): I10 - Essential (primary) hypertension Status: Acute Assessment and Plan: * Patient's blood pressure was reviewed on 02/22 * Blood pressure remains well controlled * Will continue current medications * 170/62 (7) Chronic anticoagulation: Code(s): Z79.01 - [facility] (current) use of anticoagulants Status: Acute Assessment and Plan: * Continue Eliquis (8) Acute anemia: Code(s): D64.9 - Anemia, unspecified Status: Acute Assessment and Plan: * Hgb 10.0, remained stable throughout visit * Hx: Chronic B12 deficiency * Vitamin B12 > 1000 * Folate > 20 * transfuse if HGB <7 * trend H&H * stool occult positive * Denies any history of hemorrhoids, melena or hematemesis (9) Obstructive sleep apnea: Code(s): G47.33 - Obstructive sleep apnea (adult) (pediatric) Status: Acute Assessment and Plan: * Placed on auto titrating BiPAP/CPAP at night (10) Hypothyroidism: Qualifiers: Hypothyroidism type: unspecified Qualified Code(s): E03.9 - Hypothyroidism, unspecified Code(s): E03.9 - Hypothyroidism, unspecified Status: Acute Assessment and Plan: * Continue levothyroxine Subjective Date/time seen: 02/22/25 07:08 Interval history: 85-year-old female with a PMH of COPD/emphysema, mycobacterium avium complex, severe plm htn, moderate tricuspid and pulmonic regurgitation, paroxysmal afib on chronic anticoagulation with Eliquis, hypothyroidism and GERD among other comorbidities who presents with 10 days of pleuritic chest pain. 02/22/2025 Patient sitting comfortably in bed at time of examination. Denies any chest pain, shortness of breath, nausea/vomiting or abdominal pain at this time. She states that she is not feeling any of the chest pain that brought her in the hospital at this time. Echocardiogram pending. Vitals and blood work remained stable this time. Stool occult blood positive, however any blood in the stool or hematemesis, denies history of hemorrhoids. Hemoglobin remains stable. Review of Systems Review of Systems: 12 systems were reviewed with pertinent positives and negatives per HPI. Except as documented in the HPI, all other systems were reviewed and are negative. Exam Narrative: Weight 94.5 kg BMI 40.7 Const: Other: No acute distress obese, lying flat in bed HENMT: Other: Head is normocephalic atraumatic, mucous membranes are tacky, crowded posterior oropharynx, nasal CPAP in place Eyes: Other: Pupils are equal and reactive, positive conjunctival pallor, no scleral icterus Neck: Other: Short neck circumference, no obvious JVD, no lymphadenopathy Resp: Other: Crackles at the bases bilaterally, no wheezing, no increased work of breathing Cardio: Other: Regular rate, regular rhythm, 2/6 systolic murmur heard best at left upper sternal border, no JVD GI: Other: Obese, soft, nontender, normoactive bowel sounds Skin: Other: Generalized pallor, non jaundice Neuro: Other: Alert oriented x3, speech is clear, no facial asymmetry, no localizing neurologic deficits noted during the course of conversation Extrem: Other: No clubbing, no cyanosis, 1+ pitting edema left lower extremity Psych: Other: Appropriate mood and affect, pleasant mood and affect, judgment and insight intact Objective Data Vital Signs Vital Signs: Vital Signs - 24 hr 02/21/25 11:15 02/21/25 13:30 02/21/25 13:30 Temperature 98.1 F Pulse Rate 79 78 Respiratory Rate 16 19 Blood Pressure 160/73 H 175/95 H Pulse Oximetry 100 100 Oxygen Delivery Room Air Room Air 02/21/25 13:41 02/21/25 13:46 02/21/25 15:17 Temperature Pulse Rate 76 77 76 Respiratory Rate 17 16 17 Blood Pressure 175/95 H 163/81 H 163/71 H Pulse Oximetry 99 99 99 Oxygen Delivery 02/21/25 15:19 02/21/25 15:27 02/21/25 17:01 Temperature Pulse Rate 75 79 85 Respiratory Rate 16 20 15 Blood Pressure 147/66 H Pulse Oximetry 99 Oxygen Delivery 02/21/25 17:18 02/21/25 18:45 02/21/25 19:04 Temperature Pulse Rate 87 80 Respiratory Rate 24 H 20 Blood Pressure 145/86 H Pulse Oximetry 93 97 Oxygen Delivery 02/21/25 19:46 02/21/25 20:15 02/21/25 21:18 Temperature Pulse Rate 71 92 88 Respiratory Rate 16 19 19 Blood Pressure 178/74 H 178/74 H Pulse Oximetry 94 98 Oxygen Delivery 02/21/25 22:27 02/21/25 22:30 02/21/25 22:51 Temperature 97.0 F L Pulse Rate 74 Respiratory Rate 20 Blood Pressure 157/57 H Pulse Oximetry 97 97 Oxygen Delivery Room Air Room Air 02/21/25 23:15 02/22/25 03:22 02/22/25 04:00 Temperature Pulse Rate 85 67 Respiratory Rate Blood Pressure Pulse Oximetry 96 Oxygen Delivery Autopap 02/22/25 04:51 Temperature 97.6 F Pulse Rate 85 Respiratory Rate 16 Blood Pressure 170/62 H Pulse Oximetry 99 Oxygen Delivery Intake/Output Intake/Output: Intake & Output 02/19/25 02/20/25 02/21/25 02/22/25 23:59 23:59 23:59 23:59 Intake Total 240 Balance 240 Meds/Results Medications: Active Medications Generic Name Dose Route Start Last Admin Trade Name Freq PRN Reason Stop Dose Admin Acetaminophen 650 mg 02/21/25 18:01 Acetaminophen 325 Mg Tablet PO Q4H PRN Mild Pain (1-3) or Fever Albuterol 5 mg 02/22/25 08:00 Albuterol Sulfate Neb 2.5 Mg/3 Ml Inh INHALATION Q6HRT [facility] Amlodipine Besylate 5 mg 02/22/25 09:00 Amlodipine Besylate 5 Mg Tablet PO DAILY [facility] Apixaban 5 mg 02/21/25 23:56 02/22/25 01:05 Apixaban 5 Mg Tablet PO Not Given Q12HR [facility] Calcium Carbonate 200 mg 02/21/25 21:24 Calcium Carbonate (Tums) 500 Mg (200 Mg Elemental) PO Q6H PRN Indigestion Docusate Sodium 100 mg 02/21/25 21:24 Docusate Sodium 100 Mg Capsule PO Q12H PRN Constipation Famotidine 40 mg 02/21/25 23:57 02/22/25 01:05 Famotidine 20 Mg Tablet PO Not Given HS [facility] Fish Oil 2 gm 02/22/25 09:00 Rillito 3 Polyunsat Fatty Acids 1 Gm Cap PO BID [facility] Fluticasone Propionate 2 puff 02/22/25 08:00 Fluticasone Prop 220 Mcg (*Sp) 12 Gm Inhaler INHALATION Q12HRT [facility] Furosemide 40 mg 02/22/25 09:00 Furosemide Inj 40 Mg/4 Ml Vial IV PUSH DAILY [facility] Gabapentin 900 mg 02/22/25 21:00 Gabapentin 300 Mg Capsule PO HS [facility] Levothyroxine Sodium 50 mcg 02/22/25 06:30 02/22/25 06:13 Levothyroxine Sodium 50 Mcg Tablet PO 50 mcg [id number] [facility] Administration Levothyroxine Sodium 75 mcg 02/24/25 06:30 Levothyroxine Sodium 75 Mcg Tablet PO [email or web address] [facility] Loratadine 10 mg 02/22/25 04:33 Loratadine 10 Mg Tablet PO DAILY PRN allergy symptoms Losartan Potassium 50 mg 02/22/25 09:00 Losartan Potassium 50 Mg Tablet PO DAILY [facility] Metoprolol Succinate 50 mg 02/22/25 09:00 Metoprolol Succinate Ext Rel 50 Mg Tabcr PO DAILY [facility] Montelukast Sodium 10 mg 02/22/25 09:00 Montelukast Sodium 10 Mg Tablet PO DAILY [facility] Multivitamins Therapeutic 1 tablet 02/22/25 09:00 Multivitamins Therapeutic Tab (*Bkc) PO DAILY [facility] Ondansetron HCl 4 mg 02/21/25 18:01 Ondansetron Inj 4 Mg/2 Ml Vial IV PUSH Q4H PRN Nausea Perflutren Lipid Microsphere 0 ml 02/21/25 20:46 Perflutren Lipid Microspheres 1.5 Ml Vial Diluted To 10 Ml Total Volume IV PUSH 02/24/25 20:47 ONCE PRN adequate visualization Protocol Perflutren Lipid Microsphere 0 ml 02/22/25 04:38 Perflutren Lipid Microspheres 1.5 Ml Vial Diluted To 10 Ml Total Volume IV PUSH 02/25/25 04:39 ONCE PRN adequate visualization Protocol Radiology Results: ITS Impressions Chest X-Ray 02/21/25 12:15 Impression: Mild CHF Venous Doppler Study 02/21/25 16:39 Impression: Negative for DVT. Chest/Abdomen/Pelvis CTA 02/21/25 17:11 IMPRESSION: 1. Cardiomegaly with mild pulmonary edema. 2: Mediastinal lymphadenopathy, likely reactive. 3: Small pleural effusions. Labs Labs: Laboratory Results - last 24 hr 02/21/25 02/21/25 02/21/25 11:43 15:28 15:28 WBC 7.7 RBC 3.38 L Hgb 10.0 L Hct 30.8 L MCV 91.1 MCH 29.6 MCHC 32.5 RDW 14.0 Plt Count 284 MPV 8.8 Immature Gran % (Auto) 0.5 Neut % (Auto) 77.7 H Lymph % (Auto) 13.6 L [place] % (Auto) 6.9 Eos % (Auto) 0.9 Baso % (Auto) 0.4 Lymph # (Auto) 1.05 [place] # (Auto) 0.5 Eos # (Auto) 0.1 Baso # (Auto) 0.0 Abs Immat Gran (auto) 0.04 H Absolute Neuts (auto) 6.0 Absolute Nucleated RBC 0.000 Nucleated RBC % 0.0 Absolute Retic Percent Retic Immature Retic Fraction Retic Hgb Content D-Dimer 0.95 H Sodium 133 L Potassium 4.0 Chloride 101 Carbon Dioxide 25 Anion Gap 7 BUN 17 Creatinine 0.95 Estim Creat Clear Calc 39 Estimated GFR 56 L Glucose 110 Calcium 9.2 Magnesium Iron TIBC % Saturation Ferritin Total Bilirubin 1.1 AST 28 ALT 20 Alkaline Phosphatase 70 Troponin I 0.028 0.026 NT-Pro-B Natriuret Pep 2120 H Cancelled 2120 H Total Protein 7.1 Albumin 3.8 Urine Color Yellow Urine Appearance Clear Urine pH 7.0 Ur Specific [place] 1.007 Urine Protein Negative Urine Glucose (UA) Negative Urine Ketones Negative Ur Blood (Man) Negative Urine Nitrate Negative Urine Bilirubin Negative Urine Urobilinogen 0.2 Leukocyte Esterase Rfl Negative Influenza A (RT-PCR) Negative Influenza B (RT-PCR) Negative RSV (RT-PCR) Negative SARS-CoV-2 RNA (RT-PCR) Negative 02/22/25 05:17 WBC 5.7 RBC 3.35 L Hgb 10.0 L Hct 30.9 L MCV 92.2 MCH 29.9 MCHC 32.4 RDW 13.9 Plt Count 274 MPV 8.7 Immature Gran % (Auto) Neut % (Auto) Lymph % (Auto) [place] % (Auto) Eos % (Auto) Baso % (Auto) Lymph # (Auto) [place] # (Auto) Eos # (Auto) Baso # (Auto) Abs Immat Gran (auto) Absolute Neuts (auto) Absolute Nucleated RBC Nucleated RBC % Absolute Retic 0.10 Percent Retic 3.10 Immature Retic Fraction 25.3 H Retic Hgb Content 30.2 D-Dimer Sodium 137 Potassium 3.7 Chloride 102 Carbon Dioxide 27 Anion Gap 8 BUN 16 Creatinine 0.95 Estim Creat Clear Calc 39 Estimated GFR 56 L Glucose 111 H Calcium 8.9 Magnesium 2.1 Iron 49 TIBC 317 % Saturation 15 L Ferritin 132.00 Total Bilirubin AST ALT Alkaline Phosphatase Troponin I NT-Pro-B Natriuret Pep Total Protein Albumin Urine Color Urine Appearance Urine pH Ur Specific [place] Urine Protein Urine Glucose (UA) Urine Ketones Ur Blood (Man) Urine Nitrate Urine Bilirubin Urine Urobilinogen Leukocyte Esterase Rfl Influenza A (RT-PCR) Influenza B (RT-PCR) RSV (RT-PCR) SARS-CoV-2 RNA (RT-PCR) Quality VTE Prophylaxis VTE prophylaxis: pharmacologic ordered (Continue home Eliquis)
[2025-02-22 07:12] LABS: Vitamin B12 > 1000.0 pg/mL (239-931)
[2025-02-22 08:19] LABS: IFOB Positive Control Positive; Immunochemical Fecal Occult Bl Positive (N)
[2025-02-22] MEDS: METOPROLOL SUCCINATE EXT REL 50 MG TABCR PO (08:19)
[2025-02-22] MEDS: ACETAMINOPHEN 325 MG TABLET 650 MG PO ×2 (08:20→12:59)
[2025-02-22] MEDS: OMEGA 3 POLYUNSAT FATTY ACIDS 1 GM CAP 2 GM PO (08:20)
[2025-02-22] MEDS: MULTIVITAMINS THERAPEUTIC TAB (*BKC) 1 TABLET PO (08:20)
[2025-02-22] MEDS: MONTELUKAST SODIUM 10 MG TABLET PO (08:20)
[2025-02-22] MEDS: FUROSEMIDE INJ 40 MG/4 ML VIAL IV PUSH (08:20)
[2025-02-22] MEDS: APIXABAN 5 MG TABLET PO ×2 (08:20→21:14)
[2025-02-22] MEDS: LOSARTAN POTASSIUM 50 MG TABLET PO (08:20)
[2025-02-22] MEDS: FLUTICASONE PROP 220 MCG (*SP) 12 GM INHALER 2 PUFF INHALATION ×2 (08:31→20:58)
[2025-02-22] MEDS: ALBUTEROL SULFATE NEB 2.5 MG/3 ML INH 5 MG INHALATION ×3 (08:32→20:58)
--- NOTE | 2025-02-22 09:00 | ECG_ITS ---
Test Date: 2025-02-22 08:58:38 Measurements Intervals [place] Rate: 95 P: 0 [place]: 0 QRS: 152 QRSD: 144 T: 79 QT: 428 QTc: 539 Interpretive Statements ATRIAL FIBRILLATION WITH ABERRANT CONDUCTION OR VENTRICULAR PREMATURE COMPLEXES INTRAVENTRICULAR CONDUCTION DELAY [130+ ms QRS DURATION] ABNORMAL ECG Compared to ECG 02/21/2025 11:25:44 Ventricular premature complex(es) now present Electronically Signed On 02-22-2025 16:18:03 PROJECT SPECIALIST by Dev Kessler M.D.
[2025-02-22] MEDS: PERFLUTREN LIPID MICROSPHERES 1.5 ML VIAL DILUTED TO 10 ML TOTAL VOLUME IV PUSH (10:00)
--- NOTE | 2025-02-22 10:51 | IVDEFINITY ---
Prior to administration of IV Definity the patient was educated on the risks and benefits of the imaging enhancing agent including potential adverse side effects. The patient verbalized understanding. Allergies were verified. No exclusion criteria were identified and at least one of the following inclusion criteria were met: 1) physician request, 2) patient technically difficult to image (per the [place] [employer]chocardi[employer] guidelines of two or more segments not discernable within the apical view), or 3) questionable left ventricular function. ?
[2025-02-22] MEDS: ONDANSETRON INJ 4 MG/2 ML VIAL IV PUSH (18:31)
[2025-02-22] MEDS: GABAPENTIN 300 MG CAPSULE 900 MG PO (21:13)
[2025-02-22] MEDS: FAMOTIDINE 20 MG TABLET 40 MG PO (21:14)
[2025-02-23] VITALS (10 sets, daily range): BP systolic 155; BP diastolic 60; PULSE 65–98; RESP 18; TEMP 36.6; O2SAT 97–98
[2025-02-23] MEDS: ALBUTEROL SULFATE NEB 2.5 MG/3 ML INH 5 MG INHALATION (03:11)
[2025-02-23] MEDS: LEVOTHYROXINE SODIUM 50 MCG TABLET PO (06:30)
[2025-02-23 07:25] LABS: Hematocrit 31.2 % (37.0-47.0); Hemoglobin 9.9 g/dL (12.0-15.0); Immature Granulocyte Percent A 0.4 % (0-0.5); Lymphocytes Absolute Auto 1.00 K/mm3 (0.9-3.2); Mean Corpuscular HGB Conc 31.7 g/dl (32-36); Mean Corpuscular Hemoglobin 29.2 pg (26-34); Mean Corpuscular Volume 92.0 fl (80-100); Nucleated Red Blood Cells Absolute Auto 0.000 K/mm3 (0.0-0.012); Nucleated Red Blood Cells Perc 0.0 % (0.0-0.2); Platelet Count Result 280 k/mm3 (150-375); Red Blood Count 3.39 M/mm3 (4.2-5.4); White Blood Count 5.6 K/mm3 (4.5-10.0)
[2025-02-23 07:50] LABS: Alanine Aminotransferase 18 U/L (6-35); Albumin Level 3.5 g/dL (3.5-5.1); Alkaline Phosphatase 62 U/L (38-126); Anion Gap 7 mmol/L (4-12); Aspartate Amino Transferase 25 U/L (14-36); Bilirubin,Total 0.7 mg/dL (0.2-1.3); Blood Urea Nitrogen 13 mg/dL (7-17); Calcium 8.6 mg/dL (8.4-10.2); Carbon Dioxide 28 mmol/L (22-30); Chloride 100 mmol/L (98-107); Estimated CRCL calculation 37 ml/min; Estimated Glomerular Filt Rate 53; Glucose 113 mg/dL (65-110); Potassium 3.6 mmol/L (3.4-5.0); Sodium 135 mmol/L (137-145); Total Protein 6.6 g/dL (6.3-8.2)
--- NOTE | 2025-02-23 08:29 | ECG_ITS ---
Test Date: 2025-02-23 08:54:41 Measurements Intervals [place] Rate: 79 P: 0 [place]: 0 QRS: 207 QRSD: 157 T: 117 QT: 453 QTc: 522 Interpretive Statements ATRIAL FIBRILLATION INDETERMINATE AXIS INTRAVENTRICULAR CONDUCTION DELAY [130+ ms QRS DURATION] ABNORMAL ECG Compared to ECG 02/22/2025 08:58:38 Indeterminate axis now present Ventricular premature complex(es) no longer present Aberrant conduction of supraventricular beat(s) no longer present Electronically Signed On 02-23-2025 13:06:43 SUPERINTENDENT by Dev Kessler M.D.
[2025-02-23] MEDS: LOSARTAN POTASSIUM 50 MG TABLET PO (09:14)
[2025-02-23] MEDS: APIXABAN 5 MG TABLET PO (09:14)
[2025-02-23] MEDS: METOPROLOL SUCCINATE EXT REL 50 MG TABCR PO (09:14)
[2025-02-23] MEDS: OMEGA 3 POLYUNSAT FATTY ACIDS 1 GM CAP 2 GM PO (09:14)
[2025-02-23] MEDS: MONTELUKAST SODIUM 10 MG TABLET PO (09:14)
[2025-02-23] MEDS: MULTIVITAMINS THERAPEUTIC TAB (*BKC) 1 TABLET PO (09:14)
[2025-02-23] MEDS: FUROSEMIDE INJ 40 MG/4 ML VIAL IV PUSH (09:15)
[2025-02-23] MEDS: ONDANSETRON HCL ODT 4 MG TABLET PO (09:17)
--- NOTE | 2025-02-23 09:31 | P.DS_ITS ---
DS: Admitting Diagnosis Discharge Date 02/23/2025 Admitting Diagnosis CHF exacerbation DS: Discharge Diagnosis Discharge Diagnosis (1) Acute exacerbation of congestive heart failure: Qualifiers: Heart failure type: right-sided Qualified Code(s): I50.813 - Acute on chronic right heart failure Code(s): I50.9 - Heart failure, unspecified Status: Acute Assessment and Plan: * Echocardiogram on 04/13/2023: Mild aortic stenosis, severe pulmonary hypertension, atrial fibrillation, severe enlargement of left atrium, moderate enlargement of right atrium, mitral valve leaflets mildly thickened * Monitor vital signs, I&Os, BUN/creatinine, daily weights, neuro status and patient is a fall risk * Monitor serum electrolytes, Keep serum Potassium>4 and serum Magnesium>2 and CBC * Obtain an Echocardiogram * Lasix 40 mg IV daily * Consult cardiology for further management, appreciate assistance and recommendations * Bilateral pleural effusions and mild pulmonary edema on CTA * CTA not indicative of PE (2) Rate controlled atrial fibrillation: Code(s): I48.91 - Unspecified atrial fibrillation Status: Acute Assessment and Plan: * Currently rate controlled * Keep serum potassium >4 and keep magnesium >2 * Echocardiogram ordered * Continue anticoagulation (3) Pulmonary edema: Qualifiers: Chronicity: acute Qualified Code(s): J81.0 - Acute pulmonary edema Code(s): J81.1 - Chronic pulmonary edema Status: Acute Assessment and Plan: * Likely secondary to underlying CHF exacerbation * Chest CTA: Cardiomegaly with mild pulmonary edema * Chest x-ray: Mild CHF * Continue IV Lasix * Monitor strict I&Os (4) Bilateral pleural effusion: Code(s): J90 - Pleural effusion, not elsewhere classified Status: Acute Assessment and Plan: * See above (5) QT prolongation: Code(s): R94.31 - Abnormal electrocardiogram [ECG] [EKG] Status: Acute Assessment and Plan: * EKG: QTc 496 * Repeat EKG 02/22: QTc 539 * Monitor on telemetry * Avoid further QT prolonging medications (6) Hypertension: Qualifiers: Hypertension type: primary hypertension Qualified Code(s): I10 - Essential (primary) hypertension Code(s): I10 - Essential (primary) hypertension Status: Acute Assessment and Plan: * Patient's blood pressure was reviewed on 02/22 * Blood pressure remains well controlled * Will continue current medications * 170/62 (7) Chronic anticoagulation: Code(s): 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 Status: Acute Assessment and Plan: * Continue Eliquis (8) Acute anemia: Code(s): D64.9 - Anemia, unspecified Status: Acute Assessment and Plan: * Hgb 10.0, remained stable throughout visit * Hx: Chronic B12 deficiency * Vitamin B12 > 1000 * Folate > 20 * transfuse if HGB <7 * trend H&H * stool occult positive * Denies any history of hemorrhoids, melena or hematemesis (9) Obstructive sleep apnea: Code(s): G47.33 - Obstructive sleep apnea (adult) (pediatric) Status: Acute Assessment and Plan: * Placed on auto titrating BiPAP/CPAP at night (10) Hypothyroidism: Qualifiers: Hypothyroidism type: unspecified Qualified Code(s): E03.9 - Hypothyr oidism, unspecified Code(s): E03.9 - Hypothyroidism, unspecified Status: Acute Assessment and Plan: * Continue levothyroxine DS: Summary Hospital Course Reason for hospitalization: Shortness of breath Hospital Course: From history and physical: Patient presents was pleuritic chest discomfort and evaluation demonstrates acute on chronic CHF exacerbation due to right-sided heart failure from pulmonary hypertension and valvular heart disease. Evidenced by bilateral pleural effusions and mild pulmonary edema on CTA. Patient did have an elevated D-dimer which is why CTA was performed. CTA ruled out pulmonary embolism. Patient was given 1 dose of IV Lasix 20 mg in the ER. Will start patient on IV Lasix 40 mg daily. Will monitor strict I&O's and daily weights. Will obtain echocardiogram to further evaluate patient's underlying cardiac structure and function as the last echo that I could see in our system was in 2022. Will continue patient's home cardiac medications including Eliquis. Patient does have AFib but is currently rate controlled. She does have some mild QT prolongation on EKG. Will continue monitor on telemetry and repeat EKG in a.m.. Will avoid further QT prolonging medications. The patient's CHF may also be exacerbated by her blood pressures in the setting of aortic valve disease. Blood pressures have been fluctuating between the 140s to 175 systolic range since arrival to the ER. Will resume home antihypertensives and monitor. Will add p.r.n. if hypertension persists. Will place patient on auto titrating BiPAP/CPAP at night to help reduce cardiac load given the patient morbid obesity and longstanding obstructive sleep apnea. Patient may also have of mild compo nent of acute asthma exacerbation. Will place patient on scheduled albutero nebulizer treatments. Hospital course: Echocardiogram was obtained which showed normal LV systolic function with an EF of 65-70%. Summary 1. Left ventricular chamber dimension is normal. 2. Left ventricular systolic function is normal, estimated at 65-70. 3. There is no increased left ventricular wall thickness. 4. The left ventricular diastolic function is abnormal. 5. Left atrial chamber dimension is moderately enlarged. 6. Right atrial chamber dimension is moderately enlarged. 7. There is mild aortic valve calcification. 8. There is mild mitral valve regurgitation. 9. The mitral valve annulus is mildly calcified. 10. There is mild tricuspid valve regurgitation. 11. Moderate pulmonary hypertension, estimated pulmonary arterial systolic pressure is 54 mmHg. 12. There is mild pulmonic regurgitation. Repeat EKG on 02/22 was ordered for prolonged QT. QT on 02/22 was 435. Repeat EKG on 02/23 showed QT of 428. She has remained in atrial fibrillation but is rate controlled at this time. She also remains asymptomatic. Upon my evaluation 02/22, she denied any chest pain, shortness a breath, nausea/vomiting or abdominal pain. Did also denied any headaches or dizziness. She remained asymptomatic throughout hospitalization. Blood work is also remained stable. She did have a positive stool occult blood which was obtained upon admission, however she denies any dark or tarry stools or hematemesis. Hemoglobin has remained stable throughout hospitalization as well. No obvious signs of acute bleeding, she will be instructed to follow-up in the outpatient setting with a GI specialist. 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 She is otherwise hemodynamically stable and has no complaints at this time. No pitting edema of the lower extremities seen on physical exam. Plan for discharge home at this time. Patient is amenable to this plan. Status at Discharge Functional status at discharge: independent ambulation Overall status at discharge: patient is back to baseline Time Spent with Patient Time attestation: Total time spent providing and/or coordinating discharge services: 32 Exam Narrative: Weight 94.5 kg BMI 40.7 Const: Other: No acute distress obese, lying flat in bed HENMT: Other: Head is normocephalic atraumatic, mucous membranes are tacky, crowded posterior oropharynx, nasal CPAP in place Eyes: Other: Pupils are equal and reactive, positive conjunctival pallor, no scleral icterus Neck: Other: Short neck circumference, no obvious JVD, no lymphadenopathy Resp: Other: Crackles at the bases bilaterally, no wheezing, no increased work of breathing Cardio: Other: Regular rate, regular rhythm, 2/6 systolic murmur heard best at left upper sternal border, no JVD GI: Other: Obese, soft, nontender, normoactive bowel sounds Skin: Other: Generalized pallor, non jaundice Neuro: Other: Alert oriented x3, speech is clear, no facial asymmetry, no localizing neurologic deficits noted during the course of conversation Extrem: Other: No clubbing, no cyanosis, no pitting edema of the lower extremities Psych: Other: Appropriate mood and affect, pleasant mood and affect, judgment and insight intact DS: Data Data Completed and Pending Labs on day of discharge: Labs from last 24 hours 02/23/25 07:21 WBC 5.6 RBC 3.39 L Hgb 9.9 L Hct 31.2 L MCV 92.0 MCH 29.2 MCHC 31.7 L RDW 14.2 Plt Count 280 MPV 8.5 Immature Gran % (Auto) 0.4 Neut % (Auto) 70.1 Lymph % (Auto) 17.8 L Stewart % (Auto) 9.3 H Eos % (Auto) 2.0 Baso % (Auto) 0.4 Lymph # (Auto) 1.00 Stewart # (Auto) 0.5 Eos # (Auto) 0.1 Baso # (Auto) 0.0 Abs Immat Gran (auto) 0.02 Absolute Neuts (auto) 4.0 Absolute Nucleated RBC 0.000 Nucleated RBC % 0.0 Sodium 135 L Potassium 3.6 Chloride 100 Carbon Dioxide 28 Anion Gap 7 BUN 13 Creatinine 0.99 Estim Creat Clear Calc 37 Estimated GFR 53 L Glucose 113 H Calcium 8.6 Total Bilirubin 0.7 AST 25 ALT 18 Alkaline Phosphatase 62 Total Protein 6.6 Albumin 3.5 Discharge Plan Discharge Attending physician on discharge: Oma Johnston Consulting providers: Justyn Fagan Discharging Clinician: Justyn Fagan Anticipated Discharge Date/Time: 02/23/25 09:26 Patient Disposition: Home Activity: as tolerated Diet: regular Discharge Instructions: Discharge disposition: Home Take medications as prescribed Monitor blood pressures Take caution while standing, rising, or moving Change positions slowly taking a break between each position change If you standing feel dizzy sit back down and take a break Encouraged to continue with yearly vaccinations Return to the emergency department if you develop sudden shortness of breath, chest pain, nausea, vomiting, upset stomach or intractable diarrhea Return to the emergency department if you develop fever greater than 101.5 Follow-up with the primary care physician within 1-2 weeks Follow-up with Dr. Silva of Gastroenterology regarding further possible work-up of your positive stool occult blood testing. You may be overdue for a colonoscopy. Follow up with your Team Supervisor, Dr. Diggs regarding further management of your diuretics and to monitor your QT prolongation. Thank you for [facility] for your healthcare needs Patient Instructions: Antibiotic Form, Apixaban (By mouth) Patient Language: Japanese Stand Alone Forms: General Discharge Information Follow-up/Referrals: Bert,MD Gisselle [Primary Care Provider, Family Practice] Chandan Diggs MD [Physician, Cardiology] Jus Vega MD [Physician, Gastroenterology] Discharge Medications: New ondansetron 4 mg Tablet,Disintegrating 4 mg PO Q6H PRN (Reason: Nausea And Vomiting) Qty: 20 0RF Continued Eliquis 5 mg tablet 5 mg PO BID cetirizine [24Hour Allergy] 10 mg tablet 5 mg PO DAILY PRN (Reason: allergy symptoms) cyanocobalamin (vitamin B-12) 1,000 mcg capsule 1,000 mcg PO .qod lvzvofkn-swrhn-[id number]-C-nessa-bor [Elomotph-Npwpl-JGF(with boron)] [id number] mg tablet 1 tablet PO BID Co Q10 See Rx Instructions PO .COMPLEX Rx Instructions: one capsule daily orally; calcium tablet See Rx Instructions PO .COMPLEX Rx Instructions: 600 orally BID multivitamin [Daily Multi-Vitamin] Tablet 1 tablet PO DAILY metoprolol succinate 50 mg tablet extended release 24 hr 50 mg PO DAILY ascorbic acid (vitamin C) 500 mg tablet 500 mg PO DAILY famotidine 40 mg tablet 40 mg PO HS lovastatin 10 mg tablet See Rx Instructions .ROUTE .COMPLEX Rx Instructions: TAKE 1 TABLET BY MOUTH DAILY HS gabapentin 300 mg capsule 600 mg PO .0900 & 1500 levothyroxine 50 mcg capsule 50 mcg PO ./Mon// gabapentin 300 mg capsule 900 mg PO HS levothyroxine 50 mcg tablet 75 mcg PO .// fluticasone furoate [Arnuity Ellipta] 200 mcg/actuation blister with device 1 inh inhalation Q24H losartan 50 mg tablet See Rx Instructions .ROUTE .COMPLEX Qty: 100 2RF Dose Instruction: TAKE 1 TABLET BY MOUTH EVERY DAY Rx Instructions: TAKE 1 TABLET BY MOUTH EVERY DAY amlodipine 5 mg tablet See Rx Instructions .ROUTE .COMPLEX Qty: 100 2RF Dose Instruction: TAKE 1 TABLET BY MOUTH DAILY Rx Instructions: TAKE 1 TABLET BY MOUTH DAILY montelukast 10 mg tablet 10 mg PO DAILY Qty: 30 11RF albuterol sulfate 90 mcg/actuation HFA aerosol inhaler 1 - 2 inh inhalation Q4-6H PRN (Reason: shortness of breath or wheezing) Qty: 8.5 2RF Discontinued omega-3 fatty acids [Fish Oil Concentrate] 1,000 mg capsule 2,000 mg PO BID magnesium 250 mg tablet 125 mg PO WEEKLY Date of admission: 02/21/25 18:04 Primary Care Provider: TresGisselle Admitting Provider: Billy Chisholm Oca Attending physician on admission: Billy Chisholm Oca Condition: Stable Quality VTE Prophylaxis VTE prophylaxis: pharmacologic ordered (Continue home Eliquis)
== END 2025-02-23 12:15 | disposition home or self-care (01) ==
LOC: ANHED 14:30 → ANH2MED 20:55
PROVIDERS: Internal Medicine; Physician Assistant; Admitting Provider Student in an Organized Health Care Education/Training Program; Emergency Provider Student in an Organized Health Care Education/Training Program; PCP Family Medicine; Visit Provider Family Medicine
DX: I50.813 Acute on chronic right heart failure (principal); I48.91 Unspecified atrial fibrillation; J81.1 Chronic pulmonary edema; J90 Pleural effusion, not elsewhere classified; R94.31 Abnormal electrocardiogram [ECG] [EKG]; I12.9 Hypertensive chronic kidney disease with stage 1 through stage 4 chronic kidney disease, or unspecified chronic kidney disease; N18.30 Chronic kidney disease, stage 3 unspecified; D64.9 Anemia, unspecified; G47.33 Obstructive sleep apnea (adult) (pediatric); E03.9 Hypothyroidism, unspecified; G89.29 Other chronic pain; J32.9 Chronic sinusitis, unspecified; M54.31 Sciatica, right side; J31.0 Chronic rhinitis; I48.0 Paroxysmal atrial fibrillation; R73.03 Prediabetes; E78.2 Mixed hyperlipidemia; J45.20 Mild intermittent asthma, uncomplicated; G47.10 Hypersomnia, unspecified; K21.9 Gastro-esophageal reflux disease without esophagitis; R05.9 Cough, unspecified; Z20.822 Contact with and (suspected) exposure to COVID-19; Z96.653 Presence of artificial knee joint, bilateral; Z83.3 Family history of diabetes mellitus; Z82.3 Family history of stroke; Z79.01 Long term (current) use of anticoagulants
CPT/HCPCS: 36415; 71046; 71275; 74177; 80048; 80053; 81003; 82274; 82607; 82728; 82746; 83540; 83550; 83735; 83880; 84484; 85025; 85027; 85046; 85380; 87637; 93005; 93971; 94640; 96374; 96375; 96376; 99285; A9270; C8929; G0378; J1938; J2405; Q9957; Q9967

== ENCOUNTER 2025-04-02 07:53 | Outpatient (CLI) | payer MEDICARE, SELFPAY ==
--- OUTSIDE RECORDS SUMMARY | 2025-04-02 08:04 | XMS_ITS | Clinical Summary ---
Author Organization [facility] [place] [address] [facility] [address] [facility] [address] [place] [address] Care Team Providers Care Cloth Boil Off Machine Operator Name Role Phone Gisselle Noel MD Primary Care Provider [phone] Allergies Active Allergy Reactions Criticality Noted Date [...] (COZAAR) 50 mg tablet 10/18/2019 Active vitamin Y83-dvjqd acid 0.5-1 mg tablet Take by mouth [...] Encounters Date Type Department Care Team Description 03/20/2025 9:30 AM MICROWAVE TECHNICIAN Office Visit [facility] Cardiology at [address] [place] [address] Chandan Diggs MD Permanent atrial fibrillation (HCC) (Primary Dx) 02/24/2025 Telephone [facility] Cardiology [address] [facility] [address] [place] [address] Chandan Diggs MD from Last [...] on file Legal Sex Female 1:52 PM MICROWAVE TECHNICIAN Gender Identity Not on file Sexual Orientation Not on file Last Filed Vital Signs Vital Sign Reading Time Taken Comments Blood Pressure 138/64 03/20/2025 9:38 AM MICROWAVE TECHNICIAN Pulse 68 03/20/2025 9:38 AM MICROWAVE TECHNICIAN Temperature - - Respiratory Rate - - Oxygen Saturation 98% 03/20/2025 9:38 AM MICROWAVE TECHNICIAN Inhaled Oxygen Concentration - - Weight 94.8 kg (209 lb) 03/20/2025 9:38 AM MICROWAVE TECHNICIAN Height 152.4 cm (5') 03/20/2025 9:38 AM MICROWAVE TECHNICIAN Body Mass Index 40.82 03/20/2025 9:38 AM MICROWAVE TECHNICIAN Plan of Treatment Health Maintenance Due Date Last Done Comments Depression Screening 1940 Fall Risk Assessment 1940 Osteoporosis Screening-Bone Density Scan 1940 Hepatitis B Screening 02/21/1958 Well Visit 65+ 02/21/2005 Zoster Vaccine (3 of 3) 05/26/2020 03/31/20 20, 11/26/2019, 03/16/2012 Influenza Vaccine (#1) 2024 4, 01/29/2022, 01/24/2020, Additional history exists DTaP/Tdap/Td Vaccine (3 - Td or Tdap) 01/17/2034 01/18/2024, 04/17/1987 Pneumococcal vaccine 65+ Completed 01/26/2016, 02/15 Insurance [facility] MEDICARE ADVANTAGE [facility] MED[facility] ADV[facility]AGE Care Teams Cloth Boil Off Machine Operator Relationship Specialty Start Date End Date Gisselle Noel MD PCP - General 02/16/16
[2025-04-02 08:41] LABS: Alanine Aminotransferase 22 U/L (6-35); Albumin Level 4.2 g/dL (3.5-5.1); Alkaline Phosphatase 65 U/L (38-126); Anion Gap 9 mmol/L (4-12); Aspartate Amino Transferase 27 U/L (14-36); Bilirubin,Total 1.4 mg/dL (0.2-1.3); Blood Urea Nitrogen 25 mg/dL (7-17); Calcium 9.4 mg/dL (8.4-10.2); Carbon Dioxide 27 mmol/L (22-30); Chloride 102 mmol/L (98-107); Estimated Glomerular Filt Rate 52; Glucose 104 mg/dL (65-110); Osmolality Calculated 290 mOsm/kg (285-295); Potassium 4.6 mmol/L (3.4-5.0); Sodium 138 mmol/L (137-145); Total Protein 6.7 g/dL (6.3-8.2)
== END 2025-04-02 07:54 | disposition home or self-care (01) ==
LOC: CHSLAB 07:53
PROVIDERS: PCP Student in an Organized Health Care Education/Training Program; Visit Provider Student in an Organized Health Care Education/Training Program
DX: N28.9 Disorder of kidney and ureter, unspecified (principal)
CPT/HCPCS: 36415; 80053

== ENCOUNTER 2025-04-16 07:53 | Outpatient (CLI) | payer MEDICARE, SELFPAY ==
--- OUTSIDE RECORDS SUMMARY | 2025-04-16 07:57 | XMS_ITS | Clinical Summary ---
Author Organization [facility] [place] [address] [facility] [address] [facility] [address] [place] [address] Care Team Providers Care Chemical Cell Changer Name Role Phone Gisselle Noel MD Primary Care Provider [phone] Allergies Active Allergy Reactions Criticality Noted Date [...] (COZAAR) 50 mg tablet 10/18/2019 Active vitamin W42-bdsxa acid 0.5-1 mg tablet Take by mouth [...] Department Care Team Description 03/20/2025 9:30 AM CARGO AGENT Office Visit [facility] Cardiology at [address] [place] [address] Chandan Diggs MD Permanent atrial fibrillation (HCC) (Primary Dx) 02/24/2025 Telephone [facility] Cardiology [address] [facility] [address] [place] [address] Chandan Diggs MD from Last [...] on file Legal Sex Female 1:52 PM CARGO AGENT Gender Identity Not on file Sexual Orientation Not on file Last Filed Vital Signs Vital Sign Reading Time Taken Comments Blood Pressure 138/64 03/20/2025 9:38 AM CARGO AGENT Pulse 68 03/20/2025 9:38 AM CARGO AGENT Temperature - - Respiratory Rate - - Oxygen Saturation 98% 03/20/2025 9:38 AM CARGO AGENT Inhaled Oxygen Concentration - - Weight 94.8 kg (209 lb) 03/20/2025 9:38 AM CARGO AGENT Height 152.4 cm (5') 03/20/2025 9:38 AM CARGO AGENT Body Mass Index 40.82 03/20/2025 9:38 AM CARGO AGENT Plan of Treatment Health Maintenance Due Date [...] Pneumococcal vaccine 65+ Completed 01/26/2016, 02/15 Insurance [facility] MEDIC[facility]VANT[facility] Address: [id number] [place] [address] [facility] MEDIC[facility] ADV[facility]AGE [facility] Address: [facility] [address] [place] [address] Care Teams Chemical Cell Changer Relationship Specialty Start Date End Date Gisselle Noel MD PCP - General 02/16/16
[2025-04-16 09:17] LABS: Alanine Aminotransferase 20 U/L (6-35); Albumin Level 4.3 g/dL (3.5-5.1); Alkaline Phosphatase 66 U/L (38-126); Aspartate Amino Transferase 28 U/L (14-36); Bilirubin,Total 1.1 mg/dL (0.2-1.3); Total Protein 6.8 g/dL (6.3-8.2)
== END 2025-04-16 07:54 | disposition home or self-care (01) ==
LOC: CHSLAB 07:55
PROVIDERS: PCP Student in an Organized Health Care Education/Training Program; Visit Provider Student in an Organized Health Care Education/Training Program
DX: R17 Unspecified jaundice (principal)
CPT/HCPCS: 36415; 80076